=== PATIENT | male | born 1960 | race Caucasian/White ===

== ENCOUNTER → 2019-07-21 08:28 | Outpatient (BNVA) | payer OTHER, SELFPAY | PROVIDERS: Family Provider Family Medicine; Visit Provider Urology | DX: R97.20 Elevated prostate specific antigen [PSA] (principal); N40.1 Benign prostatic hyperplasia with lower urinary tract symptoms | CPT/HCPCS: 81001; 84153 ==

== ENCOUNTER → 2020-04-25 08:33 | Outpatient (BNVA) | payer OTHER, SELFPAY | PROVIDERS: Family Provider Family Medicine; Visit Provider Urology | DX: R97.20 Elevated prostate specific antigen [PSA] (principal); N40.1 Benign prostatic hyperplasia with lower urinary tract symptoms | CPT/HCPCS: 81003; 84153 ==

== ENCOUNTER → 2020-05-10 08:35 | Outpatient (BNVA) | payer OTHER, SELFPAY | PROVIDERS: Family Provider Family Medicine; Visit Provider Family Medicine | DX: Z13.6 Encounter for screening for cardiovascular disorders (principal); R59.0 Localized enlarged lymph nodes; F17.219 Nicotine dependence, cigarettes, with unspecified nicotine-induced disorders | CPT/HCPCS: 80053; 80061; 85025 ==

== ENCOUNTER 2020-05-25 08:14 | Outpatient (CLI) | payer OTHER, SELFPAY ==
--- NOTE | 2020-05-25 08:30 | CT_ITS ---
WS: [id number] CT NECK WITH CONTRAST HISTORY: right sided cervical lymphadenopathy TECHNIQUE: Contiguous 5 mm axial images are performed through the neck with intravenous contrast. Sag ittal and coronal reformats are also submitted. All CT scans at [facility] use at least o ne of these dose optimization techniques: automated exposure control; mA and/or kV adjustment per pat ient size (includes targeted exams where dose is matched to clinical indication); or iterative recons truction. CONTRAST: CONTRAST: Omnipaque 300; 95 mL IV. DLP: 2658.13 mGycm COMPARISON: None available. Nasopharynx and oropharynx are negative. There is increased soft tissue with enhancement involving th e RIGHT lingula tonsil. Area of enhancement and soft tissue thickening measures 11 x 7 mm. Ovoid 7 mm level IIa lymph node is very mildly hypervascular. No enlarged or necrotic lymph nodes. Torus tubarius and parapharyngeal fat are normal. Thyroid gland and salivary glands are normally enhancing with no masses. Mild anterior wedging of T6. No acute fractures. Visualized portions of the skull base demonstrate no abnormalities. Orbits and globes are within norm al limits. No soft tissue masses. Visualized paranasal sinuses and mastoid air cells are normal. Chronic emphysematous changes at the apices. 8mm lymph node high RIGHT paratracheal. CT/CT neck w con* [id number] IMPRESSION: 1. Increased soft tissue with enhancement centered in the RIGHT lingual tonsil . Recommend further evaluation with direct visualization. May be postinflammato ry or neoplastic. 2. RIGHT level IIa normal size lymph nodes with mild increased enhancement.
[2020-05-25] MEDS: iohexol 300 mg/mL 100 mL Btl IV (08:56)
== END 2020-05-25 08:15 | disposition home or self-care (01) ==
LOC: RADWPI 08:19
PROVIDERS: PCP Family Medicine; Visit Provider Family Medicine
DX: R59.0 Localized enlarged lymph nodes (principal)
CPT/HCPCS: 70491; Q9967

== ENCOUNTER → 2021-01-24 08:23 | Outpatient (BNVA) | payer OTHER, SELFPAY | PROVIDERS: PCP Family Medicine; Visit Provider Nurse Practitioner Family | DX: N40.1 Benign prostatic hyperplasia with lower urinary tract symptoms (principal); R97.20 Elevated prostate specific antigen [PSA] | CPT/HCPCS: 81003; 84153 ==

== ENCOUNTER 2021-10-22 09:16 | Outpatient (CLI) | payer OTHER, SELFPAY | END 2021-10-22 09:17 | disposition home or self-care (01) | LOC: LAB 09:18 | PROVIDERS: PCP Family Medicine; Visit Provider Urology | DX: R97.20 Elevated prostate specific antigen [PSA] (principal) | CPT/HCPCS: 36415; 84153 ==

== ENCOUNTER → 2021-10-25 08:44 | Outpatient (BNVA) | payer OTHER, SELFPAY | PROVIDERS: PCP Family Medicine; Visit Provider Urology | DX: R97.20 Elevated prostate specific antigen [PSA] (principal) | CPT/HCPCS: 81003 ==

== ENCOUNTER 2022-07-19 06:59 | Outpatient (CLI) | payer OTHER, SELFPAY ==
[2022-07-19 07:45] LABS: Prostate Specific AG Urology 5.82 ng/mL (0-4)
== END 2022-07-19 07:00 | disposition home or self-care (01) ==
LOC: LAB 07:01
PROVIDERS: PCP Family Medicine; Visit Provider Urology
DX: R97.20 Elevated prostate specific antigen [PSA] (principal)
CPT/HCPCS: 36415; 84153

== ENCOUNTER → 2022-07-23 08:15 | Outpatient (BNVA) | payer OTHER, SELFPAY | PROVIDERS: PCP Family Medicine; Visit Provider Urology | DX: N40.1 Benign prostatic hyperplasia with lower urinary tract symptoms (principal) | CPT/HCPCS: 81003 ==

== ENCOUNTER 2023-08-13 16:56 | Outpatient (CLI) | payer OTHER, SELFPAY ==
--- NOTE | 2023-08-13 17:15 | CT_ITS ---
WS: [id number] CT NECK TECHNIQUE: Contrast-enhanced CT of the neck with coronal and sagittal reformatted images. CLINICAL INFORMATION: Dysphonia COMPARISON: CT neck 05/25/2020 DLP: [address] scans at [facility] use at least one of these dose optimization techniques: automated e xposure control; mA and/or kV adjustment per patient size (includes targeted exams where dose is matc hed to clinical indication); or iterative reconstruction. FINDINGS: Large enhancing soft tissue mass most compatible with neoplasm involving the supraglottic larynx exte nding to the glottis. Enhancing soft tissue mass fills the RIGHT vallecula with involvement of the ep iglottis and filling of the RIGHT piriform sinus. This crosses midline with mass effect on the LEFT v allecula. Involvement of the RIGHT aryepiglottic fold and preepiglottic space. This extends inferiorl y to the anterior commissure with mass effect on the RIGHT and LEFT vocal fold and slightly abuts the RIGHT true vocal cord. Subglottic airway is patent. Enhancing mass fills the periglottic fat. This m easures approximately 3.4 x 4.1 x 3.5 cm. Enhancing pathologic metastatic lymph nodes with some centr al necrosis level 2 and level 3 cervical stations. Recommend further evaluation with PET CT for stagi ng. Paranasal sinuses and mastoid air cells are well aerated. Small retention cyst or polyp LEFT maxillar y sinus. Normal posterior nasopharynx. Normal parapharyngeal fat. Normal thyroid gland. Advanced emph ysematous changes in the lung apices. Mild spondylitic changes cervical spine. Chronic biconcave comp ression C6 vertebral body. This is unchanged since 2020. IMPRESSION: 1. Enhancing supraglottic large soft tissue mass filling the RIGHT vallecula extending to the RIGHT piriform sinus and superior glottis. Recommend further evaluation with direct visualization. Findings compatible with neoplasm. 2. Bilateral level 2 and level 3 metastatic cervical lymph nodes some with central necrosis. Recomme nd staging with PET/CT.
[2023-08-13 17:20] LABS: Blood Urea Nitrogen 19 mg/dL (8-23); Glomerular Filtration Rate 67.8 mL/min (90-130)
[2023-08-13] MEDS: iohexol 350 mg/mL 500 mL Btl (per mL) IV (17:24)
== END 2023-08-13 16:57 | disposition home or self-care (01) ==
LOC: RAD 16:56
PROVIDERS: PCP Family Medicine; Visit Provider Otolaryngology
DX: R49.0 Dysphonia (principal); J38.7 Other diseases of larynx
CPT/HCPCS: 70491; 82565; 84520; Q9967

== ENCOUNTER 2023-09-03 17:51 | Inpatient (IN) | payer OTHER, SELFPAY ==
[2023-09-03] VITALS (23 sets, daily range): BP systolic 112–133; BP diastolic 71–94; PULSE 67–88; RESP 16–20; TEMP 36.3–36.7; O2SAT 87–100; BMI 24.9
--- NOTE | 2023-09-03 11:53 | W.PM.OPSUD ---
Surgery/Procedure H&P Update DATE OF PROCEDURE: September 03, 2023 DATE H&P PERFORMED: 08/28/23 H&P UPDATE INFORMATION: I have reviewed H&P completed within last 30 days, I have examined patient prior to procedure and No changes to prior documentation CHANGES TO PREVIOUS DOCUMENTATION: No changes PREOP DIAGNOSIS: Supraglottic mass PRIMARY INDICATION FOR PROCEDURE: Supraglottic mass for biopsy PLANNED PROCEDURE: Operation Date: 09/03/23 13:00 Proposed Procedures p Direct Laryngoscopy Direct Larynoscopy w/ Vocal Cord Biopsy(Not Applicable) - Yang Felipe MD
[2023-09-03] MEDS: sodium chloride 0.9% 1,000 ML 30 ML IV (11:59)
--- NOTE | 2023-09-03 12:45 | ANES.PREANE2 ---
Pre-Anesthetic Assessment Height/Weight: Height 1.63 m Weight 65.771 kg Temp Pulse Resp BP Pulse Ox O2 Del Method 97.8 F 69 18 133/90 97 Room Air 09/03/23 11:52 09/03/23 11:52 09/03/23 11:52 09/03/23 11:52 09/03/23 11:52 09/03/23 11:52 Preop Diagnosis: Supraglottic mass Operation Date: 09/03/23 13:00 Proposed Procedures p Direct Laryngoscopy Direct Larynoscopy w/ Vocal Cord Biopsy(Not Applicable) - Yang Felipe MD Familial anesthetic complications: None Was Beta Jaime taken within 24 hours: N/A Was Clonidine taken within 24 hours: N/A Last intake: Intake Last Liquid Date 09/02/23 Last Liquid Time 21:00 Last Solid Date 09/02/23 Last Solid Time 19:30 Social Alcohol and Tobacco Exam alert, oriented x 3, clear to auscultation bilaterally and regular rate & rhythm Airway Mallampati: Class IV Comments: Comments: supraglottic mass Anesthetic Plan ASA status: 2 Anesthesia: General Risk of > 500 ml blood loss (7ml/kg in children): No Other Pertinent Information Discussed approach to intubation with Dr. Felipe, with regards to need for awake vs asleep intubation - states it should be safe to proceed with asleep intubation. Recommending 5.5 or 6.0 ETT for size, and recommending glidescope with approach from left side. We perform bag mask ventilation before paralytic. Surgeon will also be at bedside during induction with alternate airway intervention available, including straight blade or possible surgical airway. Patient and informed of expected difficulty d/t anatomy and possiblity of need for surgical airway. Medications/Allergies Home Medications Medication Instructions Recorded Confirmed Last Taken Type aspirin 81 mg tablet,delayed 81 mg PO DAILY 07/21/19 09/02/23 08/12/23 History release Allergies Allergy/AdvReac Type Severity Reaction Status Date / Time Penicillins Allergy ALGY-Hives Verified 08/28/23 08:19 Current Medications Generic Name Dose Route Start Last Admin Trade Name Freq PRN Reason Stop Dose Admin Sodium Chloride 1,000 mls @ 30 mls/hr 09/03/23 11:45 09/03/23 11:59 Sodium Chloride 0.9% IV 09/04/23 11:44 30 mls/hr .Q24H CINDY Administration PFSH Anesthesia Medical History (Updated 08/28/23 @ 08:51 by Yang Felipe MD) Broken wrist History of basal cell carcinoma (BCC) of skin On shoulder - 5-6 years ago Benign non-nodular prostatic hyperplasia with lower urinary tract symptoms Abnormal PSA Surgical History History of cataract surgery with lens implant Hx of appendectomy Family History Father , AT AGE 64 LUNG CANCER No problems noted. Social History Smoking and tobacco/nicotine status: current every day tobacco/nicotine user cigarettes Packs smoked per day: 1.5 Years cigarettes smoked: 50 Quit status (tobacco/nicotine): quit date established Planned quit date: 08/14/23 Second hand smoke exposure: No Alcohol intake: never Substance/Drug Use: current Substance/Drug use frequency: few times a week Adopted: No Caregiver/support person: No Lives independently: No Household members: spouse Marital status: service: No Current occupational status: employed Pets and animals: Yes Pets & animals: cat(s) and dog(s) Current gender identity: Male Special regino needs: No Data Anesthesia Cardiac Studies: No Data to Display
[2023-09-03] MEDS: levofloxacin-dextrose 5 % 750 MG/150 ML PREMIX 100 MG IV (12:58)
[2023-09-03] MEDS: EPINEPHrine 1 mg/mL INJ XX (13:50)
[2023-09-03] MEDS: lidocaine-epi 2% 1.7mL Cartridge (OR Only) 1.69999999999999996 ML (15:00)
[2023-09-03] MEDS: lidocaine-epi 2% 1.7mL Cartridge (OR Only) 5.09999999999999964 ML INJECTION (15:00)
[2023-09-03] MEDS: neomycin-poly-bacitracin oint 28 gm 28 APPLIC (15:20)
--- NOTE | 2023-09-03 15:28 | P.OP_ITS ---
Operative Report Date of procedure: September 03, 2023 Pre-op diagnosis: Right supraglottic mass Post-op diagnosis: Right supraglottic mass. Airway obstruction requiring tracheotomy. Post-op findings: Right supraglottic mass extending to the area just above the true vocal cords. Multiple biopsies taken and raw area approximately 1 cm?. After extubation patient experienced significant stridor due to supraglottic and epiglottic edema. Therefore patient needed to have a controlled but emergent tracheotomy performed. Successfully accomplished placing a cuffed low pressure 8 Shiley tr acheostomy tube in place. Procedure done: Direct laryngoscopy with multiple biopsies of right supraglottic mass. Emergent tracheostomy. Implants: 8 Shiley low-pressure cuff tracheostomy tube in place Specimens removed/disposition: Multiple biopsies of right supraglottic mass Pathology: Right supraglottic mass specimen for permanent section Surgeon: Yang Felipe MD Anesthesia: General and Local Estimated blood loss: 30 mL Complications: No complications encountered after tracheostomy placed. Supraglottic airway obstruction following extubation from direct laryngoscopy and biopsies. This due to extreme edema. Findings: Patient with a right supraglottic mass to be brought to the operating room to undergo biopsy of this mass. Brief History: 63-year-old male patient with a right supraglottic mass extending down to the area just above the right true vocal cord and anterior commissure region. This did not extend through the true cords. It did not obstruct the glottis and its airway. Patient is to undergo direct laryngoscopy and biopsy. The procedure its risks and complications were explained in detail in the office setting as well as in the preoperative area. Informed consent was granted and witnessed. Risks include bleeding infection numbness scarring swelling bruising need for additional treatment as this is expected to be only a diagnostic procedure. Anesthetic risks and airway concerns with the possibility of having to place a trach tube into his airway below the operative site. With these things understood the procedure to continue. Procedure: Description of procedure: The patient was placed on the operating table in the supine position. Patient was given Levaquin for prophylaxis and due to his expected airway concern I was present in the operating room for intubation. Attempts were made with the glide scope to visualize and intubate. When that was not possible I stepped into perform the intubation. Attempts were made with a straight blade laryngoscope and then later with a rigid laryngoscope. I was able to visualize the glottis and intubate under direct visualization. Once that was accomplished and with the endotracheal tube in place with the cuff up, the patient was then repositioned on the table for the endoscopy. The table was rotated 90 degrees. His eyes were taped shut and a head drape was applied in usual fashion. A timeout was accomplished identifying the patient date of planned procedure allergies fire risk and medications given. With all in agreement the procedure continued. The patient was given a total of 24 mg of Decadron IV. A tooth guard was placed over his upper gingiva. The operative laryngoscope was then inserted and the right supraglottic mass was identified. The scope was suspended from a Baez stand. Then using straight biting biopsy forceps multiple biopsies were taken over a 1 cm? region debulking the mass and getting multiple biopsies of the right supraglottic mass. These were all sent to the pathologist for permanent section diagnosis only. Cottonoids soaked in one-to-one thousand epinephrine were applied to the operative site. After approximately 10 minutes past his the cottonoids were removed. Bleeding appeared to be controlled in this area. An LTA was dispensed to the larynx. 200 mg of lidocaine 4% was utilized. The suspension was taken down. The scope was advanced until an area on the base of tongue adjacent to the epiglottis was noted to be bleeding. This was again treated with cottonoid with 1-1000 epinephrine. After 10 minutes this was removed. No bleeding was seen. The scope was then advanced and removed completely from the patient's mouth. Suctioning was accomplished. Irrigation with saline was accomplished. Irrigation with hydrogen peroxide was accomplished. No bleeding was noted. After assuring that there was no sign of bleeding the patient's had was returned to the upright position. Head wrap and tape were removed. The gum protector was removed. The airway was once again suctioned and cleaned. With no sign of bleeding the patient was returned to the anesthesiologist for wake-up and extubation. I remained in the room during this time to assure that his airway would be adequate following the surgery. I noticed a significant amount of edema of the epiglottis at the end of the procedure due to the challenging intubation. In spite of the Decadron I was concerned that that could potentially cause postoperative airway obstruction and stridor. After extubation that is exactly what was noted. Patient was having to work significantly to get adequate air flow. Therefore it was opted to proceed with a tracheostomy urgently. The patient was placed back on the bed as he had been moved to the [facility]. Anesthesia maintained his airway with mask and the patient was prepped and draped in the usual fashion for the tracheostomy placement. The surgical site was infiltrated with a total of 5.1 mL of 2% Xylocaine with 1 100,000 epinephrine. Marking pen was used to outline the appropriate anatomy in the neck and to help maintain the midline position. Then the incision was created with the cut mode of the Bovie down to the subcutaneous layer. Then careful dissection was carried out down through multiple layers of soft tissue and the isthmus of the thyroid gland which was partially resected for access to the trachea. Tracheal rings were then identified and vessels in the area were clamped and cauterized. Wheat Avon retractors were used to hold the soft tissue off the trachea. The trach hook was placed between tracheal rings 1 and 2 and an incision was created between rings 2 and 3 down into the trachea. A trach machine spreader was placed. The 8 low-pressure cuffed Shiley tube was then placed under direct visualization. The obturator was removed and the cuff was inflated. The ventilator adapter was connected directly through the trach tube. Suturing of the trach tube plate was accomplished and 4 points 2 on each side. The vertical incision that had been created previously was partially closed inferior to the tube with 3-0 Prolene sutures. Then the drapes were removed. A [place] was then attached to the trach tube and tightened so that 1 finger breath of space was maintained. The patient was then cleansed of the Betadine used for the prep and Neosporin ointment was applied over the lower part of the incision and at the suture sites. The patient was then returned to the anesthesiologist for wake up and transport to recovery. The patient tolerated both procedures well. Airway was significantly improved after the tracheostomy tube was in place. He arrived in recovery in stable condition. Estimated blood loss for the procedure was 30 mL.
[2023-09-03] MEDS: fentaNYL 50 mcg/mL INJ 2mL IVP (16:55)
--- NOTE | 2023-09-03 18:00 | ANE.PACU2 ---
Inpatient post-anesthesia follow up: Airway intact: No (trach) Vital signs: Temperature 99.5 F Pulse Rate 80 Respiratory Rate 26 Blood Pressure 121/77 Pulse Oximetry 100 Oxygen Delivery Me thod [ HAG Current Rate & Del tam] Oxygen Delivery Me thod Trach Collar Oxygen Flow Rate [ Current Rate 10 & Delivery] Oxygen Flow Rate 14 Fraction of Inspir ed Oxygen 50 Hydration adequate: Yes Nausea and vomiting: No Pain level: 1 Mental status: Baseline
--- NOTE | 2023-09-03 18:53 | P.HP_ITS ---
Providers/Chief Complaint Primary Care Provider: Laine Berrios DO Chief Complaint: J38.7 History of Present Illness 63-year-old gentleman with right supraglottic mass with intermittent abscess, pain, odynophagia, biopsy, after extubation with significant stridor, supraglottic and epiglottic edema underwent controlled but emergent tracheostomy. Subsequently admitted to ICU, hospitalist asked for admission due to better familiarity with EMR. Patient communicates by writing. He is doing okay after surgery. He otherwise has been at baseline state of health. As per discussion with his in the waiting room he has had quite bit of secretions, some hemoptysis, dysphagia, or odynophagia to hospitalization. Has stayed on clear liquid diet. Review of Systems Const: Denies: fever(s), chills, body aches or malaise ENMT: Reports: throat pain Card: Denies: chest pain, edema, pre-syncope or dyspnea on exertion Resp: Reports: productive cough (Oropharyngeal secretions) and hemoptysis; Denies: dyspnea or change in phlegm color GI: Denies: abdominal pain, nausea, vomiting, diarrhea, constipation, hematochezia or melena : Denies: flank pain, difficulty urinating, urinary frequency or hematuria Musc: Denies: back pain, joint swelling or joint redness Skin/Breast: Denies: rash or new lesions Neuro: Denies: headache(s), numbness in extremities, weakness in extremities, dizziness, confusion or seizure-like activity Medications/Allergies Home Medications Medication Instructions Recorded Confirmed Last Taken Type aspirin 81 mg tablet,delayed 81 mg PO DAILY 07/21/19 09/02/23 08/12/23 History release Allergies Allergy/AdvReac Type Severity Reaction Status Date / Time Penicillins Allergy ALGY-Hives Verified 08/28/23 08:19 PFSH Acute PFSH: Medical History Broken wrist History of basal cell carcinoma (BCC) of skin On shoulder - 5-6 years ago Benign non-nodular prostatic hyperplasia with lower urinary tract symptoms Abnormal PSA Surgical History History of cataract surgery with lens implant Hx of appendectomy Family History Father , AT AGE 64 LUNG CANCER No problems noted. Social History Smoking and tobacco/nicotine status: current every day tobacco/nicotine user cigarettes Packs smoked per day: 1.5 Years cigarettes smoked: 50 Quit status (tobacco/nicotine): quit date established Planned quit date: 08/14/23 Second hand smoke exposure: No Alcohol intake: never Substance/Drug Use: current Substance/Drug use frequency: few times a week Adopted: No Caregiver/support person: No Lives independently: No Household members: spouse Marital status: service: No Current occupational status: employed Pets and animals: Yes Pets & animals: cat(s) and dog(s) Current gender identity: Male Special regino needs: No Vitals/I&O/Wt Last Vital Signs Temp 98.0 F 09/03/23 17:51 Pulse 76 09/03/23 18:32 Resp 18 09/03/23 17:51 BP 127/77 09/03/23 17:51 Pulse Ox 100 09/03/23 18:32 O2 Del Method HAG 09/03/23 18:32 O2 Flow Rate 10 09/03/23 18:32 FiO2 50 09/03/23 16:04 09/03/23 09/03/23 09/03/23 06:59 14:59 22:59 Intake Total 150 / 150 300 / 450 Output Total 5 / 5 Balance 150 / 150 295 / 445 Weight last 48 hrs Weight 65.771 kg Physical Exam Const: COMMON NORMALS: patient oriented x3 and alert GENERAL APPEARANCE: cooperative ORIENTATION/CONSCIOUSNESS: Yes awake HENMT: COMMON NORMALS: oropharynx normal OTHER: Tracheostomy. Small out of secretions. Minimal blood inferiorly. Neck/C-Spine: COMMON NORMALS: no JVD Resp: COMMON NORMALS: normal respiratory effort and clear to auscultation bilaterally AUSCULTATION: clear to auscultation bilaterally Cardio: COMMON NORMALS: no JVD, regular rhythm, S1 normal heart sound present, S2 normal heart sound present and No murmurs present (Cardio) RHYTHM: regular rhythm HEART SOUNDS: S1 normal heart sound present and S2 normal heart sound present GI: COMMON NORMALS: Normal to inspection, nondistended, normoactive bowel sounds present, Soft to palpation and non-tender PALPATION: Yes Soft to palpation Extremity: COMMON NORMALS: no joint enlargement and no pedal edema Neuro: COMMON NORMALS: patient oriented x3 and moves all extremities SENS ORIUM/ORIENTATION: Yes alert Skin: COMMON NORMALS: no rashes or lesions noted GENERAL SKIN EXAM: no rashes or lesions noted A&P Assessment and plan (1) Airway compromise: Airway compromise with airway edema, stridor following intubation after supraglottic mass biopsy, at risk of respiratory arrest, underwent tracheostomy. Reviewed vitals, neck CT, ENT note. Discussed with ENT, respiratory therapist. Post tracheostomy care per ENT. Continues on HAG, wean down oxygen as tolerating. Monitor for bleeding, risk of bleeding first 48 hours. Discussed with patient and his regarding anticipated increase secretions with new tra cheostomy. Consideration of trach exchange at 5-7 days. Will request case management consultation to allow for equipment to be set up for patient and his to continue tracheostomy care at home once ready for discharge. They will also need education. IV morphine for pain control for now. Gentle IV hydration. N.p.o. for now until cleared for oral intake by ENT. Recently with hemoptysis suspected due to the mass, increased secretions from oropharynx/upper airway. (2) Supraglottic mass: Status post biopsy. Follow-up. Appearance/concern of malignancy. (3) Smoking addiction: Encourage smoking cessation. He is agreeable to nicotine patches, is wearing around right now. Continue 21 mg patches. Attestations Medical Necessity Statement*: Admission of over 2 midnights anticipated after airway compromise and edema, tracheostomy in gentleman with some supraglottic mass, suspected malignant, status post biopsy. Coding Level of Care Code Critical Care >/= 30 minutes Critical care time (in minutes): 35 The high probability of a clinically significant, sudden or life threatening deterioration, as referenced in this documentation, required my full and direct attention, intervention and personal management. The critical care time shown is in addition to time spent performing any reported separately billable procedures and includes the following: [x] Data and vital sign review and interpretation [x ] Patient assessment, examination and intervention [x] Medication orders and management [x] Patient/Family updates as able [x] Care Coordination and Documentation. Diagnoses Airway compromise J98.8 Supraglottic mass J38.7 Smoking addiction F17.200
[2023-09-03] MEDS: nicotine 21 mg Patch 1 PATCH TRANSDERMA (20:04)
[2023-09-03] MEDS: morphine 4 mg/mL SDV 1 mL 2 MG IVP (20:07)
[2023-09-03] MEDS: lactated ringers 1,000 ML 30 ML IV (20:14)
[2023-09-04] VITALS (26 sets, daily range): BP systolic 116–142; BP diastolic 73–85; PULSE 61–81; RESP 14–34; TEMP 36.8–38.3; O2SAT 93–100; BMI 21.8
[2023-09-04] MEDS: morphine 4 mg/mL SDV 1 mL 2 MG IVP ×8 (00:09→20:36)
[2023-09-04 04:13] LABS: Basophils % 0.1 %; Lymphocytes # 1.4 10^3/uL (0.8-4.8); Mean Corpuscular HGB Conc 32.9 g/dL (30-55); Mean Corpuscular Hemoglobin 29.2 pg (27-33); Mean Corpuscular Volume 88.7 fl (82-101); Mean Platelet Volume 10.9 fL (7.4-10.4); Monocytes # 0.5 10^3/uL (0.2-0.9); Neutrophils # 10.89 10^3/uL (1.8-7.7); Neutrophils % 84.5 %; Nucleated Red Blood Cells % 0 %; Platelet Count 193 10^3/cmm (157-399); Red Blood Count 4.62 10^6/uL (3.85-5.65); Red Cell Distribution Width 12.9 % (12.1-15.1); White Blood Count 12.89 10^3/uL (3.29-11.43)
[2023-09-04 04:42] LABS: Anion Gap 16.2 (5-19); Blood Urea Nitrogen 18 mg/dL (8-23); Calcium 8.6 mg/dL (8.5-10.5); Carbon Dioxide 24 mmol/L (22-29); Chloride 103 mmol/L (98-107); Creatinine Clr Calc Pharmacy 70.7093; Glomerular Filtration Rate 85.2 mL/min (90-130); Glucose 111 mg/dL (65-115); Osmolality Calculated 291 mOsm/kg (285-295); Potassium 4.2 mmol/L (3.5-5.1); Sodium 139 mmol/L (136-145)
--- NOTE | 2023-09-04 12:06 | PM.PN ---
Subjective Subjective: 63-year-old male patient with right supraglottic mass consistent with malignancy. Patient had biopsy done with direct laryngoscopy on 09/03/2023. Subsequent to that procedure being accomplished upon waking and extubation he had significant stridor. Therefore in an emergent tracheostomy was performed. Patient has 8 Shiley cuffed trach tube in place. In ICU for trach care and management. Vitals/I&O/Wt Last Vital Signs Temp 99.5 F 09/04/23 07:34 Pulse 80 09/04/23 08:00 Resp 26 H 09/04/23 08:36 BP 121/77 09/04/23 06:28 Pulse Ox 100 09/04/23 08:36 O2 Del Method HAG 09/04/23 08:00 O2 Flow Rate 10 09/04/23 08:00 FiO2 50 09/03/23 16:04 09/03/23 09/04/23 09/04/23 22:59 06:59 14:59 Intake Total 300 / 450 Output Total 5 / 5 400 / 405 Balance 295 / 445 -400 / 45 Weight last 48 hrs Weight 131 lb 3.2 oz Weight 132 lb 3.2 oz Weight 145 lb Weight 145 lb Physical Exam Narrative: The trach tube is in place. Cuff is inflated. Incision with sutures in place. Faceplate of trach tube sutured in 4 point suture and [place] neck strap in place. Appropriate tension on the [place] strap. Patient breathing easily through the trach. Has attempted to swallow orally but had difficulty accomplishing that. Hard to tell whether that was related to the swelling or possibly due to the cuff being inflated. Data 09/04/23 03:40 09/04/23 03:40 A&P Assessment and plan (1) Supraglottic mass: Assessment: Supraglottic mass right side now status post multiple biopsies on 08/14/2023. Chronic hoarseness and neck pain and pain on swallowing from the supraglottic mass. Now with pain subsequent to tracheostomy placement due to postoperative airway compromise and stridor. This due to extreme edema of the laryngeal and hypopharyngeal tissues. Currently breathing easily through the 8 Shiley cuffed trach tube. Incision clean and without any signs of infection. No active bleeding. Difficulty swallowing probably related to the edema of the supraglottic area as well as the cuff being inflated. (2) Hoarseness, chronic: (3) Throat pain in adult: (4) Odynophagia: (5) Airway compromise: Plan Plan: My recommendation is for the cuff to be reduced in pressure when he wants to eat or drink. If he does not have excessive secretions then the cuff can remain deflated or at least lessened to allow him to be able to swallow and drink and take in food and liquids. It is possible that the cuff may need to be reinflated after he is finished eating or drinking. If he can tolerate the cuff down then he may be able to use a valve over the end of the trach tube and be able to breathe as well as talk. Trial with the cuff deflated or reduced and pressure can be done today. Attestations Medical Necessity Statement*: ICU care for fresh tracheostomy placement. Airway compromise due to supraglottic mass and postoperative edema. Coding Level of Care Code 50621 Diagnoses Supraglottic mass J38.7 Hoarseness, chronic R49.0 Throat pain in adult R07.0 Odynophagia R13.10 Airway compromise J98.8
[2023-09-04] MEDS: LORazepam 2 mg/mL INJ 10 mL MDV 0.5 MG IVP ×2 (13:52→20:37)
--- NOTE | 2023-09-04 19:39 | PC.NURSE ---
Shift summary: Pt rested in bed throughout the shift. Lungs auscultated clear. His tolerating the new trach fairly well. It is very tender right below per pt. He did have Morphine mg every 4hrs ordered, it was not lasting the 4hours. Per Dr chauhan frequency increased to every 2 hours. That seems to hold his pain level down better. He did have a panicked episode around noon. Rt was at bedside doing trach care, pt had copious red mucous drainage, RT provided suctioning to clear his airway, he started coughing. Pain increased, RT attempted to suctioning him again and pt swatted at RT. Dr Chauhan notified, okay'ed given Morhpine sooner than the 2 hours and started a PRN Ativan order. Admin both and pt was actually able to rest with eyes closed for a couple hours after. He stated he felt much better after that. Sinus rhythm noted on monitor. He is using a HAG at 10lpm/28%. He uses the urinal 100-175ml at a time. total urine output this shift was 575ml. No Bm noted tis shift.
--- NOTE | 2023-09-04 19:41 | PM.PN ---
Subjective Subjective: Having pain around tracheostomy. Morphine does not last long enough with the 4-hour interval. It appears pain is also possibly contributing to him having episodes of getting quite anxious as well. Could not tolerate suctioning well, became very anxious and reported ended up swinging his arm at the respiratory therapist. Vitals/I&O/Wt Last Vital Signs Temp 98.3 F 09/04/23 13:00 Pulse 61 09/04/23 16:00 Resp 25 H 09/04/23 18:38 BP 126/80 09/04/23 16:00 Pulse Ox 98 09/04/23 18:38 O2 Del Method HAG 09/04/23 16:00 O2 Flow Rate 10 09/04/23 16:00 FiO2 28 09/04/23 16:00 09/04/23 09/04/23 09/04/23 06:59 14:59 22:59 Output Total 400 / 405 225 / 225 175 / 400 Balance -400 / 45 -225 / -225 -175 / -400 Weight last 48 hrs Weight 59.511 kg Weight 59.965 kg Weight 65.771 kg Weight 65.771 kg Physical Exam Narrative: Accompanied by his . Const: COMMON NORMALS: patient oriented x3 and alert GENERAL APPEARANCE: cooperative ORIENTATION/CONSCIOUSNESS: Yes awake HENMT: COMMON NORMALS: oropharynx normal OTHER: I do not appreciate pharyngeal or posterior pharyngeal swelling to the extent that could be visualized. Tracheostomy. No secretions or bleeding around the tracheostomy. Neck/C-Spine: COMMON NORMALS: no JVD Resp: COMMON NORMALS: normal respiratory effort and clear to auscultation bilaterally AUSCULTATION: clear to auscultation bilaterally Cardio: COMMON NORMALS: no JVD, regular rhythm, S1 normal heart sound present, S2 normal heart sound present and No murmurs present (Cardio) RHYTHM: regular rhythm HEART SOUNDS: S1 normal heart sound present and S2 normal heart sound present GI: COMMON NORMALS: Normal to inspection, nondistended, normoactive bowel sounds present, Soft to palpation and non-tender PALPATION: Yes Soft to palpation Extremity: COMMON NORMALS: no joint enlargement and no pedal edema Neuro: COMMON NORMALS: patient oriented x3 and moves all extremities SENSORIUM/ORIENTATION: Yes alert Skin: COMMON NORMALS: no rashes or lesions noted GENERAL SKIN EXAM: no rashes or lesions noted Data 09/04/23 03:40 09/04/23 03:40 A&P Assessment and plan (1) Status post tracheostomy: On 09/02. Reviewed vitals, CBC, BMP, discussed with nursing staff, reviewed ENT note, discussed with case packer and sealer. He is having pain around the tracheostomy, IV morphine was not lasting long enough, increased dose frequency to every 2 hours. Additionally episodes of anxiety possibly. Worsened by pain, added Ativan as needed by IV as currently also not tolerating oral intake/medications. ENT seeing if cough can be deflated to perhaps allow some oral intake if not having excessive secretions. If could possibly be fitted with a valve as well. Will ask speech therapy for consultation. Continue monitoring for any bleeding in ICU, at risk in the first 48 hours. Consideration of trach exchange at 5-7 days. Appreciate case management consultation regarding equipment that will be needed for home use. (2) Airway compromise: Airway compromise with airway edema, stridor following intubation after supraglottic mass biopsy, at risk of respiratory arrest, underwent tracheostomy on 09/02. Will request case management consultation to allow for equipment to be set up for patient and his to continue tracheostomy care at home once ready for discharge. They will also need education. IV morphine for pain control for now. Gentle IV hydration. N.p.o. for now until cleared for oral intake by ENT. Recently with hemoptysis suspected due to the mass, increased secretions from oropharynx/upper airway. 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 Status post biopsy. Follow-up. Appearance/concern of malignancy. (4) Smoking addiction: Encourage smoking cessation. He is agreeable to nicotine patches, is wearing around right now. Continue 21 mg patches. Patient and family would like to use his own patches which they brought in. Attestations Medical Necessity Statement*: Continue admission for assessment management of new tracheostomy status post airway compromise with laryngeal swelling. Diagnoses Status post tracheostomy Z93.0 Airway compromise J98.8 Supraglottic mass J38.7 Smoking addiction F17.200
[2023-09-05] VITALS (25 sets, daily range): BP systolic 116–143; BP diastolic 73–92; PULSE 66–93; RESP 13–33; TEMP 36.9–37.9; O2SAT 94–100
[2023-09-05] MEDS: morphine 4 mg/mL SDV 1 mL 2 MG IVP ×7 (03:24→22:44)
[2023-09-05] MEDS: LORazepam 2 mg/mL INJ 10 mL MDV 0.5 MG IVP ×3 (03:26→20:39)
[2023-09-05 05:10] LABS: Basophils % 0.3 %; Eosinophils % 0.1 %; Hematocrit 43.3 % (37-53); Lymphocytes # 1.7 10^3/uL (0.8-4.8); Lymphocytes % 13.3 %; Mean Corpuscular HGB Conc 32.6 g/dL (30-55); Mean Corpuscular Hemoglobin 29.3 pg (27-33); Mean Corpuscular Volume 89.8 fl (82-101); Monocytes # 0.7 10^3/uL (0.2-0.9); Monocytes % 5.3 %; Neutrophils # 10.57 10^3/uL (1.8-7.7); Neutrophils % 80.6 %; Nucleated Red Blood Cells % 0 %; Platelet Count 173 10^3/cmm (157-399); Red Blood Count 4.82 10^6/uL (3.85-5.65)
[2023-09-05 05:32] LABS: Anion Gap 14.9 (5-19); Blood Urea Nitrogen 20 mg/dL (8-23); Calcium 8.5 mg/dL (8.5-10.5); Carbon Dioxide 24 mmol/L (22-29); Chloride 98 mmol/L (98-107); Glomerular Filtration Rate 97.6 mL/min (90-130); Glucose 86 mg/dL (65-115); Osmolality Calculated 278 mOsm/kg (285-295); Potassium 3.9 mmol/L (3.5-5.1); Sodium 133 mmol/L (136-145)
[2023-09-05] MEDS: lactated ringers 1,000 ML 30 ML IV (05:48)
--- NOTE | 2023-09-05 08:39 | PC.NURSE ---
Pt resting with eyes closed. Looks comfortable. Will get temperature when he wakens.
--- NOTE | 2023-09-05 08:50 | PC.NURSE ---
Jarod, Case management, notified [facility] called yesterday evening they do not have a HAG, they do have CAG. They are not in network with pt's insurance, they will work up a list of pricing for him. Becky stated she would contact [facility] also. Pt also needs a speaking valve ordered.
--- NOTE | 2023-09-05 11:38 | PM.PN ---
Subjective Subjective: 63-year-old male patient with right supraglottic lesion biopsied with direct laryngoscopy a couple of days ago. Had stridor after extubation and required urgent tracheostomy placement. He is doing fine with that now. Has not yet been challenged with the cuff down to see about swallowing and breathing around the tube or plugging and talking. Vitals/I&O/Wt Last Vital Signs Temp 99.2 F 09/05/23 04:00 Pulse 70 09/05/23 08:00 Resp 24 H 09/05/23 09:12 BP 143/84 09/05/23 08:00 Pulse Ox 94 09/05/23 09:12 O2 Del Method HAG 09/05/23 08:00 O2 Flow Rate 10 09/05/23 08:00 FiO2 28 09/05/23 08:00 09/04/23 09/05/23 09/05/23 22:59 06:59 14:59 Intake Total 0 / 0 1000 / 1000 Output Total 500 / 725 250 / 975 Balance -500 / -725 750 / 25 Weight last 48 hrs Weight 125 lb 14.4 oz Weight 131 lb 3.2 oz Weight 132 lb 3.2 oz Weight 145 lb Weight 145 lb Physical Exam Narrative: Patient has an 8 [address] tracheostomy tube in place with low pressure cuff. Breathing easily through this. Incision is clean and dry with minimal serous secretion. Patient using suction as necessary. Data 09/05/23 04:20 09/05/23 04:20 A&P Assessment and plan (1) Status post tracheostomy: Assessment: Patient progressing well with new tracheostomy in place postop day 2. Has not yet been challenged with cuff down and eating or drinking. Has not attempted to talk around the tube with the cuff down. (2) Supraglottic mass: Plan Plan: Advised the nurse to proceed with attempting to eat and drink starting with liquids. Cuff pressure may need to be lowered in order for the patient to be able to swallow past that point. It is certainly allowable to deflate the cuff if necessary for him to eat and drink. As swallowing continues to decrease in the supraglottic area from the manipulation of the direct laryngoscopy and biopsies, it should be easier and easier for him to swallow. Obtain an 8 Shiley uncuffed tube for private branch exchange repairer of this tube to a new tube after day 7. Speaking valve for placement on that new trach tube would also be appropriate to obtain. Nurse will arrange that either through home or other facility that can provide that. We do not have those readily available in house. Local care to continue. Attestations Medical Necessity Statement*: Patient needs to be maintained in ICU for observation with his fresh tracheostomy tube placement. Coding Level of Care Code 27310 Diagnoses Status post tracheostomy Z93.0 Supraglottic mass J38.7
--- NOTE | 2023-09-05 19:42 | PM.PN ---
Subjective Subjective: He reports he is doing well today. He is having fewer secretions. He is still needing pain medication for the tracheostomy site but it is not as bad as yesterday. They have discussed with ENT regarding him trying some clear liquid oral intake. Vitals/I&O/Wt Last Vital Signs Temp 99 F 09/05/23 17:00 Pulse 73 09/05/23 17:00 Resp 25 H 09/05/23 18:48 BP 125/82 09/05/23 17:00 Pulse Ox 98 09/05/23 18:48 O2 Del Method HAG 09/05/23 17:00 O2 Flow Rate 10 09/05/23 17:00 FiO2 28 09/05/23 17:00 09/05/23 09/05/23 09/05/23 06:59 14:59 22:59 Intake Total 1000 / 1000 100 / 100 350 / 450 Output Total 250 / 975 150 / 150 250 / 400 Balance 750 / 25 -50 / -50 100 / 50 Weight last 48 hrs Weight 57.107 kg Weight 59.511 kg Weight 59.965 kg Weight 65.771 kg Physical Exam Const: COMMON NORMALS: patient oriented x3 and alert GENERAL APPEARANCE: cooperative ORIENTATION/CONSCIOUSNESS: Yes awake HENMT: COMMON NORMALS: oropharynx normal OTHER: I do not appreciate pharyngeal or posterior pharyngeal swelling to the extent that could be visualized. Tracheostomy. No secretions or bleeding around the tracheostomy. Neck/C-Spine: COMMON NORMALS: no JVD Resp: COMMON NORMALS: normal respiratory effort and clear to auscultation bilaterally AUSCULTATION: clear to auscultation bilaterally Cardio: COMMON NORMALS: no JVD, regular rhythm, S1 normal heart sound present, S2 normal heart sound present and No murmurs present (Cardio) RHYTHM: regular rhythm HEART SOUNDS: S1 normal heart sound present and S2 normal heart sound present GI: COMMON NORMALS: Normal to inspection, nondistended, normoactive bowel sounds present, Soft to palpation and non-tender PALPATION: Yes Soft to palpation Extremity: COMMON NORMALS: no joint enlargement and no pedal edema Neuro: COMMON NORMALS: patient oriented x3 and moves all extremities SENSORIUM/ORIENTATION: Yes alert Skin: COMMON NORMALS: no rashes or lesions noted GENERAL SKIN EXAM: no rashes or lesions noted Data 09/05/23 04:20 09/05/23 04:20 A&P Assessment and plan (1) Status post tracheostomy: Reviewed vitals, CBC, BMP. Reviewed ENT note. Reviewed speech therapy note. Requesting MBS per speech therapy recommendations. ENT also has been working with patient, nursing staff to further assess breathing, swallowing around tracheostomy with deflation of the cough. Discussed with bilingual patient support caseworker, they are working with the family to arrange further equipment needed at home including speaking valve, humidification. He is still needing IV pain medication but pain is improving. Continue weaning down oxygen. Continue modification. Pulmonary toilet. No medical floor bed available, remaining in ICU as overflow. Status post tracheostomy on 09/02. Reviewed vitals, CBC, BMP, discussed with nursing staff, reviewed ENT note, discussed with bilingual patient support caseworker. He is having pain around the tracheostomy, IV morphine was not lasting long enough, increased dose frequency to every 2 hours. Additionally episodes of anxiety possibly. Worsened by pain, added Ativan as needed by IV as currently also not tolerating oral intake/medications. ENT seeing if cough can be deflated to perhaps allow some oral intake if not having excessive secretions. If could possibly be fitted with a valve as well. Will ask speech therapy for consultation. Continue monitoring for any bleeding in ICU, at risk in the first 48 hours. Consideration of trach exchange at 5-7 days. Appreciate case management consultation regarding equipment that will be needed for home use. (2) Airway compromise: Airway compromise with airway edema, stridor following intubation after supraglottic mass biopsy, at risk of respiratory arrest, underwent tracheostomy on 09/02. Will request case management consultation to allow for equipment to be set up for patient and his to continue tracheostomy care at home once ready for discharge. They will also need education. IV morphine for pain control for now. Gentle IV hydration. N.p.o. for now until cleared for oral intake by ENT. Recently with hemoptysis suspected due to the mass, increased secretions from oropharynx/upper airway. 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 Status post biopsy. Follow-up. Appearance/concern of malignancy. (4) Smoking addiction: Encourage smoking cessation. He is agreeable to nicotine patches, is wearing around right now. Continue 21 mg patches. Patient and family would like to use his own patches which they brought in. Attestations Medical Necessity Statement*: Continue admission for assessment management of new tracheostomy status post airway compromise with laryngeal swelling. and High MDM includes amount and/or complexity of data reviewed/ordered [ previous or external records, resulted lab(s)/test(s), ordered lab(s)/test(s) and other healthcare professional discussion] and described risk of complication, morbidity or mortality of management as documented Diagnoses Status post tracheostomy Z93.0 Airway compromise J98.8 Supraglottic mass J38.7 Smoking addiction F17.200
--- NOTE | 2023-09-05 20:12 | PC.NURSE ---
shift summary: Pt rested in bed this shift. He was resting soundly with eyes closed at the beginning. Assistance to get up to chiar offered, pt declined today. he does not have difficulty moving around or sitting up in the bed. He has had blood tinges to tannish sputum/secretions out of his trach today. Pt using yankuer to clean area, he is tolerating this well. He was offered clear liquids today,. He was too nervous this am. After speech therapy evaluated and assisted his, he is much more confident about about consuming liquids. He was a very willing participate in her instructions to turn his head to the right and tilt his chin done for better ease of swallowing. Sinus rhythm noted on monitor. Pain control much improved today. 400ml of urine output noted.
[2023-09-06] VITALS (30 sets, daily range): BP systolic 118–149; BP diastolic 75–98; PULSE 66–86; RESP 13–34; TEMP 36.6–37.3; O2SAT 86–100
[2023-09-06] MEDS: morphine 4 mg/mL SDV 1 mL 2 MG IVP ×7 (01:02→21:58)
[2023-09-06 06:37] LABS: Basophils # 0.1 10^3/uL (0.0-0.1); Basophils % 0.4 %; Eosinophils % 0.2 %; Hematocrit 44.4 % (37-53); Lymphocytes # 2.7 10^3/uL (0.8-4.8); Lymphocytes % 20.5 %; Mean Corpuscular HGB Conc 31.8 g/dL (30-55); Mean Corpuscular Hemoglobin 29.5 pg (27-33); Mean Corpuscular Volume 92.9 fl (82-101); Mean Platelet Volume 11.1 fL (7.4-10.4); Monocytes # 0.7 10^3/uL (0.2-0.9); Monocytes % 5.3 %; Neutrophils % 73.4 %; Nucleated Red Blood Cells % 0 %; Platelet Count 208 10^3/cmm (157-399); Red Blood Count 4.78 10^6/uL (3.85-5.65); Red Cell Distribution Width 12.8 % (12.1-15.1); White Blood Count 13.22 10^3/uL (3.29-11.43)
[2023-09-06 06:56] LABS: Blood Urea Nitrogen 22 mg/dL (8-23); Calcium 9.2 mg/dL (8.5-10.5); Carbon Dioxide 24 mmol/L (22-29); Chloride 99 mmol/L (98-107); Creatinine Clr Calc Pharmacy 79.2581; Glomerular Filtration Rate 97.6 mL/min (90-130); Glucose 80 mg/dL (65-115); Osmolality Calculated 288 mOsm/kg (285-295); Sodium 138 mmol/L (136-145)
[2023-09-06 07:24] LABS: Anion Gap 19.1 (5-19); Potassium 4.1 mmol/L (3.5-5.1)
--- NOTE | 2023-09-06 11:15 | P.PN_ITS ---
Subjective 2 Subjective: Since yesterday the patientHas attempted to swallow liquids. Apparently there may have been some degree of aspiration. Different positions of his neck did allow him to be more successful. He is not able to talk around the trach tube with the cuff deflated. Vitals/I&O/Wt Last Vital Signs Temp 99.1 F 09/06/23 09:00 Pulse 75 09/06/23 10:00 Resp 20 H 09/06/23 10:00 BP 149/88 09/06/23 10:00 Pulse Ox 98 09/06/23 10:00 O2 Del Method HAG 09/06/23 09:00 O2 Flow Rate 10 09/05/23 20:00 FiO2 24 09/06/23 09:00 09/05/23 09/06/23 09/06/23 22:59 06:59 14:59 Intake Total 380 / 480 974 / 974 Output Total 500 / 650 250 / 900 250 / 250 Balance -120 / -170 -250 / -420 724 / 724 Weight last 48 hrs Weight 123 lb 6.4 oz Weight 125 lb 14.4 oz Physical Exam 2 Narrative: Trach site stable. Lumen patent. Cuff deflated currently. No sign of bleeding or infection. Data 09/06/23 05:28 09/06/23 05:28 A&P Assessment and plan (1) Status post tracheostomy: Patient is status post tracheostomy for airway restriction and stridor following extubation after supraglottic mass biopsy 3 days ago. Patient appears to be stable but not able to handle full diet. Having some degree of aspiration issues. Awaiting barium swallow study next Friday. (2) Supraglottic mass: Plan Plan: May try to use full liquids if he handles clear liquids earlier today. Apparently he is going to be transferred to the med surgical floor on the second floor. I will see him again tomorrow. Whether we need to continue with a cuffed tube long-term or whether we need to consider him for PEG tube for feeding will depend on how he progresses with his oral intake. Trach stable and no treatment warranted in that regard at this time. Will wait at least 1 week before trach is changed over. Whether it will need to be a cuffed tube and size 8 or whether it needs to be reduced down to a size 6 will remain to be seen. Attestations 2 Medical Necessity Statement*: Tracheostomy care postop day #3. Swallowing difficulties. Aspiration concerns. Right supraglottic mass pending pathology results. Coding Level of Care Code 02590 Diagnoses Status post tracheostomy Z93.0 Supraglottic mass J38.7
[2023-09-06] MEDS: lactated ringers 1,000 ML 50 ML IV (12:48)
[2023-09-06] MEDS: LORazepam 2 mg/mL INJ 10 mL MDV 0.5 MG IVP ×2 (13:25→20:17)
--- NOTE | 2023-09-06 17:25 | PC.NURSE ---
Shift SUmmary: Uneventful shift. Patient rested in bed most of the day, but did walk the unit for about 10 minutes with no issues. Has performed all of his regular trach care, with nurse only having to empty the water trap.. Cuff was reinflated since even with it deflated he was unable to speak and speech therapy had some concerns for aspiration. Change to a smaller trach and a barium swallow planned for friday.
--- NOTE | 2023-09-06 20:02 | P.PN_ITS ---
Subjective 2 Subjective: He is doing similarly with regards to pain. Did worse with speech therapy today with attempts to swallow, coughing with every attempt. Vitals/I&O/Wt Last Vital Signs Temp 98.9 F 09/06/23 13:00 Pulse 74 09/06/23 17:43 Resp 22 H 09/06/23 19:01 BP 127/82 09/06/23 17:00 Pulse Ox 91 09/06/23 19:01 O2 Del Method HAG 09/06/23 17:43 O2 Flow Rate 10 09/06/23 08:00 FiO2 21 09/06/23 17:43 09/06/23 09/06/23 09/06/23 06:59 14:59 22:59 Intake Total 1109 / 1109 Output Total 250 / 900 375 / 375 200 / 575 Balance -250 / -420 734 / 734 -200 / 534 Weight last 48 hrs Weight 55.973 kg Weight 57.107 kg Physical Exam 2 Narrative: Accompanied by his . Const: COMMON NORMALS: patient oriented x3 and alert GENERAL APPEARANCE: c ooperative ORIENTATION/CONSCIOUSNESS: Yes awake HENMT: COMMON NORMALS: oropharynx normal OTHER: Tracheostomy. No secretions or bleeding around the tracheostomy. Neck/C-Spine: COMMON NORMALS: no JVD Resp: COMMON NORMALS: normal respiratory effort and clear to auscultation bilaterally AUSCULTATION: clear to auscultation bilaterally Cardio: COMMON NORMALS: no JVD, regular rhythm, S1 normal heart sound present, S2 normal heart sound present and No murmurs present (Cardio) RHYTHM: regular rhythm HEART SOUNDS: S1 normal heart sound present and S2 normal heart sound present GI: COMMON NORMALS: Normal to inspection, nondistended, normoactive bowel sounds present, Soft to palpation and non-tender PALPATION: Yes Soft to palpation Extremity: COMMON NORMALS: no joint enlargement and no pedal edema Neuro: COMMON NORMALS: patient oriented x3 and moves all extremities S ENSORIUM/ORIENTATION: Yes alert Skin: COMMON NORMALS: no rashes or lesions noted GENERAL SKIN EXAM: no rashes or lesions noted Data 09/06/23 05:28 09/06/23 05:28 A&P Assessment and plan (1) Status post tracheostomy: Reviewed vitals, CBC, BMP. Mild leukocytosis today. Suspect stress/surgery related. He is having little bit more secretions today. Continue to suction. Continue pulmonary toilet. Reassessed by ENT, reviewed ENT note. Discussed with speech therapist. Per his work with speech therapy today unfortunately had quite a bit of cough with each swallowing at times. Recommended n.p.o. for now. Continuing. As per recommendation on review of speech therapy note [place] [facility] [place] until Friday per discussion with patient and his . In case unable to tolerate any consistency by mouth safely, feeding tube may need to be considered. Case management working with family for arrangements for appointment for after discharge. ENT planning trach exchange at 7 days. Continue IV morphine as needed for pain. Ativan as needed for anxiety. Has been requiring IV medications due to not tolerating oral intake so far. Gentle IV hydration. (2) Airway compromise: As above. Airway compromise with airway edema, stridor following intubation after supraglottic mass biopsy, at risk of respiratory arrest, underwent tracheostomy on 09/02. Will request case management consultation to allow for equipment to be set up for patient and his to continue tracheostomy care at home once ready for discharge. They will also need education. IV morphine for pain control for now. Gentle IV hydration. N.p.o. for now until cleared for oral intake by ENT. Recently with hemoptysis suspected due to the mass, increased secretions from oropharynx/upper airway. 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 Status post biopsy. Follow-up. Appearance/concern of malignancy. (4) Smoking addiction: Encourage smoking cessation. He is agreeable to nicotine patches, is wearing around right now. Continue 21 mg patches. Patient and family would like to use his own patches which they brought in. Attestations 2 Medical Necessity Statement*: Continue admission for assessment management of new tracheostomy status post airway compromise with laryngeal swelling. Dysphagia. Unable to tolerate oral intake. Diagnoses Status post tracheostomy Z93.0 Airway compromise J98.8 Supraglottic mass J38.7 Smoking addiction F17.200
[2023-09-06] MEDS: nicotine 21 mg Patch 1 PATCH TRANSDERMA (20:25)
[2023-09-07] VITALS (27 sets, daily range): BP systolic 113–165; BP diastolic 73–100; PULSE 66–90; RESP 12–31; TEMP 36.3–37.3; O2SAT 88–98
[2023-09-07] MEDS: morphine 4 mg/mL SDV 1 mL 2 MG IVP ×6 (00:04→22:24)
[2023-09-07 03:55] LABS: Basophils # 0.1 10^3/uL (0.0-0.1); Basophils % 0.5 %; Eosinophils # 0.1 10^3/uL (0.0-0.8); Eosinophils % 0.7 %; Hematocrit 39.5 % (37-53); Lymphocytes # 1.8 10^3/uL (0.8-4.8); Lymphocytes % 17.7 %; Mean Corpuscular HGB Conc 32.9 g/dL (30-55); Mean Corpuscular Hemoglobin 29.3 pg (27-33); Mean Corpuscular Volume 89.2 fl (82-101); Monocytes # 0.7 10^3/uL (0.2-0.9); Monocytes % 6.8 %; Neutrophils # 7.41 10^3/uL (1.8-7.7); Neutrophils % 74.1 %; Nucleated Red Blood Cells % 0 %; Platelet Count 183 10^3/cmm (157-399); Red Blood Count 4.43 10^6/uL (3.85-5.65); Red Cell Distribution Width 12.6 % (12.1-15.1)
[2023-09-07 04:14] LABS: Anion Gap 14.8 (5-19); Blood Urea Nitrogen 17 mg/dL (8-23); Calcium 8.1 mg/dL (8.5-10.5); Carbon Dioxide 28 mmol/L (22-29); Chloride 102 mmol/L (98-107); Creatinine Clr Calc Pharmacy 90.5807; Glomerular Filtration Rate 113.9 mL/min (90-130); Glucose 121 mg/dL (65-115); Osmolality Calculated 295 mOsm/kg (285-295); Potassium 3.8 mmol/L (3.5-5.1); Sodium 141 mmol/L (136-145)
[2023-09-07] MEDS: lactated ringers 1,000 ML 50 ML IV (08:43)
[2023-09-07] MEDS: LORazepam 2 mg/mL INJ 10 mL MDV 0.5 MG IVP ×2 (09:25→20:09)
--- NOTE | 2023-09-07 11:26 | PC.SLP ---
Patient asleep. present and reported patient felt better after respiratory therapy performed trach [facility]. reported patient attempted to swallow this am but reported continued difficulty. Discussed with Dr. Viera that patient is at high risk for aspiration and recommend NPO until MBS completed on Friday.
--- NOTE | 2023-09-07 11:41 | P.PN_ITS ---
Subjective 2 Subjective: Since yesterday Mr. Rajan had an attempt at trying to drink and was unsuccessful. He currently has the cuff down and breathing easily. Awaiting swallow study tomorrow. Medications: Reviewed: Yes Vitals/I&O/Wt Last Vital Signs Temp 98.4 F 09/07/23 04:00 Pulse 76 09/07/23 09:27 Resp 16 09/07/23 08:42 BP 113/73 09/07/23 05:00 Pulse Ox 97 09/07/23 09:27 O2 Del Method HAG 09/07/23 09:27 O2 Flow Rate 6 09/07/23 09:27 FiO2 21 09/06/23 17:43 09/06/23 09/07/23 09/07/23 22:59 06:59 14:59 Intake Total 1115.833 / 1115.833 Output Total 520 / 895 220 / 1115 200 / 200 Balance -520 / 214 -220 / -6 915.833 / 915.833 Weight last 48 hrs Weight 123 lb 6.4 oz Physical Exam 2 Narrative: Trach tube in place. Patent. No obstruction evident. Breathing quietly. Resting at this time. Cuff down. Trach site without any swelling or erythema. No excessive secretions. No sign of infection or bleeding. Pathology still pending. Data 09/07/23 03:03 09/07/23 03:03 A&P Assessment and plan (1) Status post tracheostomy: Assessment: Patient is status post tracheostomy following direct laryngoscopy and biopsy of right sided supraglottic mass. He is now postop day 4. Stable in regards to his airway. Issue still continues in regards to his swallowing without aspiration or with inability to swallow with the cuff up. (2) Supraglottic mass: Plan Plan: Proceed with the swallow study tomorrow. The patient will continue n.p.o. at this point. Will have to determine based on the swallow study whether he will need to have a PEG tube placed for feeding and nutrition. Advised the nurse that the patient's should be taught how to do cleaning and management of the trach site and suctioning. Arrangements are being made for supplies from HOME. First week supply will need to be obtained from them. The site where the supplies can be covered by the patient's insurance will not have them until about a week from now. The plan will be to change his trach over either to a cuffed or uncuffed tube based on his swallowing ability on postop day 7. Whether that will be as an inpatient or an outpatient depends on his status at that time. Maintain proper moisturization for his trach site. Attestations 2 Medical Necessity Statement*: Patient continues to need care for his postop day for tracheostomy and his inability to swallow and handle secretions and prevent aspiration. Not having problems with saliva. Not choking with the cuff down. Sleeping comfortably at this time but airway protection and care and swallowing and ability still require close observation and care. Coding Level of Care Code 78439 Diagnoses Status post tracheostomy Z93.0 Supraglottic mass J38.7
--- NOTE | 2023-09-07 17:39 | P.PN_ITS ---
Subjective 2 Subjective: Having somewhat more secretions today. Pain slightly better. Having much more difficulty with swallowing today. Vitals/I&O/Wt Last Vital Signs Temp 99.2 F 09/07/23 12:00 Pulse 74 09/07/23 14:00 Resp 16 09/07/23 13:46 BP 128/86 09/07/23 12:00 Pulse Ox 93 09/07/23 13:46 O2 Del Method Trach Collar 09/07/23 12:00 O2 Flow Rate 6 09/07/23 09:27 FiO2 28 09/07/23 12:00 09/07/23 09/07/23 09/07/23 06:59 14:59 22:59 Intake Total 1115.833 / 1115.833 Output Total 220 / 1115 425 / 425 Balance -220 / -6 690.833 / 690.833 Weight last 48 hrs Weight 55.792 kg Weight 55.973 kg Physical Exam 2 Narrative: Accompanied by his at bedside. Const: COMMON NORMALS: patient oriented x3 and alert GENERAL APPEARANCE: c ooperative ORIENTATION/CONSCIOUSNESS: Yes awake HENMT: COMMON NORMALS: oropharynx normal OTHER: Tracheostomy. No bleeding around the tracheostomy. Neck/C-Spine: COMMON NORMALS: no JVD Resp: COMMON NORMALS: normal respiratory effort and clear to auscultation bilaterally AUSCULTATION: clear to auscultation bilaterally Cardio: COMMON NORMALS: no JVD, regular rhythm, S1 normal heart sound present, S2 normal heart sound present and No murmurs present (Cardio) RHYTHM: regular rhythm HEART SOUNDS: S1 normal heart sound present and S2 normal heart sound present GI: COMMON NORMALS: Normal to inspection, nondistended, normoactive bowel sounds present, Soft to palpation and non-tender PALPATION: Yes Soft to palpation Extremity: COMMON NORMALS: no joint enlargement and no pedal edema Neuro: COMMON NORMALS: patient oriented x3 and moves all extremities S ENSORIUM/ORIENTATION: Yes alert Skin: COMMON NORMALS: no rashes or lesions noted GENERAL SKIN EXAM: no rashes or lesions noted Data 09/07/23 03:03 09/07/23 03:03 A&P Assessment and plan (1) Status post tracheostomy: Having much more difficulty with swallowing today. Pain is slightly better. Reports more secretions. Reviewed vitals, CBC, BMP, reviewed ENT note. Discussed with speech therapist. His reports he does little bit better with thickened liquids, Jell-O. In case unable to tolerate any consistency by mouth safely, feeding tube may need to be considered. Case management working with family for arrangements for appointment for after discharge. ENT planning trach exchange at 7 days. Continue IV morphine as needed for pain until able to tolerate oral medication. Ativan as needed for anxiety. Has been requiring IV medications due to not tolerating oral intake so far. Gentle IV hydration. (2) Airway compromise: As above. Airway compromise with airway edema, stridor following intubation after supraglottic mass biopsy, at risk of respiratory arrest, underwent tracheostomy on 09/02. Will request case management consultation to allow for equipment to be set up for patient and his to continue tracheostomy care at home once ready for discharge. They will also need education. IV morphine for pain control for now. Gentle IV hydration. N.p.o. for now until cleared for oral intake by ENT. Recently with hemoptysis suspected due to the mass, increased secretions from oropharynx/upper airway. 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 Status post biopsy. Follow-up. Appearance/concern of malignancy. (4) Smoking addiction: Encourage smoking cessation.Continue 21 mg patches. Patient and family would like to use his own patches which they brought in. Attestations 2 Medical Necessity Statement*: Continue admission for assessment management of new tracheostomy status post airway compromise with laryngeal swelling. Dysphagia. Unable to tolerate oral intake. Diagnoses Status post tracheostomy Z93.0 Airway compromise J98.8 Supraglottic mass J38.7 Smoking addiction F17.200
[2023-09-07] MEDS: nicotine 21 mg Patch 1 PATCH TRANSDERMA (20:10)
--- NOTE | 2023-09-07 21:05 | PC.NURSE ---
Pt arrived from ICU to room 257, report received from Lalita WHITEHEAD. Pt set up in room and is comfortable at this time.
--- NOTE | 2023-09-07 21:30 | PC.NURSE ---
Transferred to Med Surg: Patient and all belongings were transferred to Med Surg unit. Receiving nurse and RT at bedside.
[2023-09-08] VITALS (16 sets, daily range): BP systolic 120–128; BP diastolic 75–79; PULSE 63–78; RESP 17–20; TEMP 36.3–37; O2SAT 93–99; BMI 20.5
[2023-09-08] MEDS: morphine 4 mg/mL SDV 1 mL 2 MG IVP ×5 (00:24→21:06)
[2023-09-08] MEDS: LORazepam 2 mg/mL INJ 10 mL MDV 0.5 MG IVP ×3 (04:04→18:42)
[2023-09-08] MEDS: lactated ringers 1,000 ML 50 ML IV (04:09)
--- NOTE | 2023-09-08 04:09 | PC.NURSE ---
Pt request lorazepam for anxiety. Prefilled syringe w/1ml/2mg or lorazepam pulled from [employer], 0.75ml/1.5mg wasted witnessed by Akbar Javier RN. Lorazepam 0.5mg/0.25ml administered to pt via IVP.
[2023-09-08 06:21] LABS: Basophils # 0.1 10^3/uL (0.0-0.1); Basophils % 0.8 %; Eosinophils # 0.2 10^3/uL (0.0-0.8); Eosinophils % 2.1 %; Hematocrit 37.4 % (37-53); Lymphocytes # 2.1 10^3/uL (0.8-4.8); Lymphocytes % 24.5 %; Mean Corpuscular HGB Conc 32.6 g/dL (30-55); Mean Corpuscular Hemoglobin 29.1 pg (27-33); Mean Corpuscular Volume 89.3 fl (82-101); Mean Platelet Volume 11.2 fL (7.4-10.4); Monocytes # 0.7 10^3/uL (0.2-0.9); Monocytes % 7.5 %; Neutrophils # 5.57 10^3/uL (1.8-7.7); Neutrophils % 64.8 %; Nucleated Red Blood Cells % 0 %; Platelet Count 203 10^3/cmm (157-399); Red Blood Count 4.19 10^6/uL (3.85-5.65); Red Cell Distribution Width 12.7 % (12.1-15.1); White Blood Count 8.61 10^3/uL (3.29-11.43)
[2023-09-08 06:43] LABS: Anion Gap 14.7 (5-19); Blood Urea Nitrogen 19 mg/dL (8-23); Calcium 8.3 mg/dL (8.5-10.5); Carbon Dioxide 27 mmol/L (22-29); Chloride 103 mmol/L (98-107); Creatinine Clr Calc Pharmacy 90.6363; Glomerular Filtration Rate 113.9 mL/min (90-130); Glucose 87 mg/dL (65-115); Osmolality Calculated 294 mOsm/kg (285-295); Potassium 3.7 mmol/L (3.5-5.1); Sodium 141 mmol/L (136-145)
--- NOTE | 2023-09-08 08:00 | FL_ITS ---
WS: [id number] FL barium swallow modifd [id number] REASON FOR EXAM: Oropharyngeal dysphagia FLUOROSCOPY TIME: 1min [id number] # OF SPOT FILMS: 0 FINDINGS: Examination was supervised by the speech therapy department. The patient was examined in the upright sitting position with very small amounts of liquid and thicke dyan barium barium administered. Multiple swallows were video recorded. The speech therapy department will render a detailed report of the swallowing. Glottic/supraglottic mass with delia aspiration. IMPRESSION: Modified barium swallow as above.
[2023-09-08 14:26] LABS: Iron 24 ug/dL (59-158); Percent Saturation 13.1 % (20-50); Thyroid Stimulating Hormone 1.41 uIU/mL (0.27-4.20); Total Iron Binding Capacity 182 mcg/dl; Unsaturated Iron Binding 158 ug/dL (112-347); Vitamin B12 1680 pg/mL (232-1245)
--- NOTE | 2023-09-08 15:52 | P.PN_ITS ---
Subjective 2 Subjective: Hospital course frog-legged appreciated. Today morning patient seen post modified barium swallow. Had episode of coughing and bloody mucus being secreted from the trach which was suctioned out. Patient is comfortable. Denies any nausea, ting, headache. Able to communicate through writing on the pad. Medications: Reviewed: Yes Vitals/I&O/Wt Last Vital Signs Temp 97.6 F 09/08/23 13:04 Pulse 67 09/08/23 13:04 Resp 18 09/08/23 13:04 BP 123/76 09/08/23 13:04 Pulse Ox 99 09/08/23 13:04 O2 Del Method Room Air 09/08/23 13:04 O2 Flow Rate 8 09/08/23 13:00 FiO2 28 09/07/23 12:00 09/08/23 09/08/23 09/08/23 06:59 14:59 22:59 Intake Total 971.667 / 2327.500 Output Total 225 / 800 275 / 275 Balance 746.667 / 1527.500 -275 / -275 Weight last 48 hrs Weight 56.064 kg Weight 55.792 kg Physical Exam 2 Narrative: No acute distress, able to communicate through writing on the pad Const: COMMON NORMALS: patient oriented x3 and alert GENERAL APPEARANCE: c ooperative ORIENTATION/CONSCIOUSNESS: Yes awake HENMT: COMMON NORMALS: oropharynx normal OTHER: Tracheostomy. No bleeding around the tracheostomy. Neck/C-Spine: COMMON NORMALS: no JVD Resp: COMMON NORMALS: normal respiratory effort and clear to auscultation bilaterally AUSCULTATION: clear to auscultation bilaterally Cardio: COMMON NORMALS: no JVD, regular rhythm, S1 normal heart sound present, S2 normal heart sound present and No murmurs present (Cardio) RHYTHM: regular rhythm HEART SOUNDS: S1 normal heart sound present and S2 normal heart sound present GI: COMMON NORMALS: Normal to inspection, nondistended, normoactive bowel sounds present, Soft to palpation and non-tender PALPATION: Yes Soft to palpation Extremity: COMMON NORMALS: no joint enlargement and no pedal edema Neuro: COMMON NORMALS: patient oriented x3 and moves all extremities S ENSORIUM/ORIENTATION: Yes alert Skin: COMMON NORMALS: no rashes or lesions noted GENERAL SKIN EXAM: no rashes or lesions noted Data 09/08/23 05:06 09/08/23 05:06 A&P Assessment and plan (1) Status post tracheostomy: Appreciate ENT recommendations. Plan for trach change at 7 days. Case management working on getting equipment as an outpatient. Not able to maintain oral intake. Having difficulty in swallowing. As per the patient he was having difficulty in swallowing even before the procedure but has gotten worse since tracheostomy. Appreciate modified barium swallow. Currently not safe to tolerate any kind of consistency safely. Discussed in detail with Dr. King from ENT. As per the ENT postoperative edema would have resolved by now as patient received high-dose Decadron perioperatively. And as patient was having issues with swallowing even preoperatively his concerns of difficulty to swallow are most likely in the setting of tumor burden and patient would possibly need PEG tube placement. Continue IV morphine as needed for pain until able to tolerate oral medication. Ativan as needed for anxiety. Has been requiring IV medications due to not tolerating oral intake so far. Gentle IV hydration. (2) Airway compromise: Trach care. 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 Status post biopsy. Follow-up. Appearance/concern of malignancy. (4) Smoking addiction: Encourage smoking cessation.Continue 21 mg patches. Patient and family would like to use his own patches which they brought in. Plan Full code N.p.o. SCDs for DVT prophylaxis Famotidine for PUD prophylaxis Attestations 2 Medical Necessity Statement*: Requires further hospitalization as patient is not able to maintain oral intake in setting of supraglottic mass post tracheostomy while definitive mode of nutrition is sought Diagnoses Status post tracheostomy Z93.0 Airway compromise J98.8 Supraglottic mass J38.7 Smoking addiction F17.200
[2023-09-08] MEDS: famotidine 20 mg/2 mL INJ IVP (16:55)
[2023-09-08] MEDS: nicotine 21 mg Patch 1 PATCH TRANSDERMA (21:01)
[2023-09-09] VITALS (18 sets, daily range): BP systolic 111–129; BP diastolic 57–83; PULSE 61–73; RESP 15–24; TEMP 36.4–36.9; O2SAT 90–98
[2023-09-09] MEDS: LORazepam 2 mg/mL INJ 10 mL MDV 0.5 MG IVP ×3 (00:13→18:48)
[2023-09-09] MEDS: morphine 4 mg/mL SDV 1 mL 2 MG IVP ×7 (00:13→23:50)
[2023-09-09] MEDS: lactated ringers 1,000 ML 50 ML IV ×2 (00:22→21:22)
[2023-09-09] MEDS: famotidine 20 mg/2 mL INJ IVP ×2 (03:46→16:29)
[2023-09-09 06:21] LABS: Basophils # 0.1 10^3/uL (0.0-0.1); Eosinophils # 0.3 10^3/uL (0.0-0.8); Eosinophils % 2.7 %; Hematocrit 38.9 % (37-53); Lymphocytes # 1.6 10^3/uL (0.8-4.8); Lymphocytes % 17.6 %; Mean Corpuscular HGB Conc 32.9 g/dL (30-55); Mean Corpuscular Hemoglobin 29.6 pg (27-33); Mean Platelet Volume 10.6 fL (7.4-10.4); Monocytes # 0.6 10^3/uL (0.2-0.9); Monocytes % 6.5 %; Neutrophils # 6.63 10^3/uL (1.8-7.7); Nucleated Red Blood Cells % 0 %; Platelet Count 228 10^3/cmm (157-399); Red Blood Count 4.32 10^6/uL (3.85-5.65); Red Cell Distribution Width 12.5 % (12.1-15.1); White Blood Count 9.21 10^3/uL (3.29-11.43)
[2023-09-09 06:24] LABS: Alanine Aminotransferase 9 U/L (0-41); Albumin Level 3.3 g/dL (3.5-5.2); Alkaline Phosphatase 65 U/L (40-130); Anion Gap 18.2 (5-19); Aspartate Amino Transferase 9 U/L (0-40); Blood Urea Nitrogen 22 mg/dL (8-23); Carbon Dioxide 25 mmol/L (22-29); Chloride 101 mmol/L (98-107); Creatinine Clr Calc Pharmacy 90.8166; Globulin 3.1 g/dL (1.3-4.6); Glomerular Filtration Rate 113.9 mL/min (90-130); Glucose 65 mg/dL (65-115); Osmolality Calculated 291 mOsm/kg (285-295); Potassium 4.2 mmol/L (3.5-5.1); Sodium 140 mmol/L (136-145); Total Bilirubin 0.4 mg/dL (0.15-1.2); Total Protein 6.4 g/dL (6.6-8.7)
[2023-09-09 06:25] LABS: Chol HDL Ratio 4.34 mg/dL (1.0-5.00); Cholesterol 139 mg/dL (0-200); HDL Cholesterol 32 mg/dL (60-100); LDL Cholesterol Calculated 82 mg/dL (50-129); Magnesium 1.6 mg/dL (1.7-2.3); Triglycerides 125 mg/dL (0-150); VLDL Cholestrol Calculation 25 mg/dL (0-30)
[2023-09-09 06:59] LABS: Estmated Average Glucose 105; Hemoglobin A1C 5.3 % (4.0-6.0)
--- NOTE | 2023-09-09 09:04 | PC.RESP ---
pt. is on a 21% HAG
--- NOTE | 2023-09-09 12:29 | P.PN_ITS ---
Subjective 2 Subjective: 63-year-old male patient with right supr aglottic mass previously biopsied 6 days ago in the operating room. Postoperatively he required a tracheostomy to be placed urgently to protect his airway due to significant edema. Patient has had issues with aspiration and choking. Attempts to have him feed with the cuff down or up have been unsuccessful. Really is not taking in much orally. Currently NPO. Medications: Reviewed: Yes Vitals/I&O/Wt Last Vital Signs Temp 98.1 F 09/09/23 07:29 Pulse 70 09/09/23 08:00 Resp 24 H 09/09/23 10:36 BP 116/68 09/09/23 07:29 Pulse Ox 98 09/09/23 08:00 O2 Del Method HAG 09/09/23 08:00 O2 Flow Rate 8 09/08/23 21:11 FiO2 28 09/07/23 12:00 09/08/23 09/09/23 09/09/23 22:59 06:59 14:59 Intake Total 300 / 300 1000 / 1300 0 / 0 Output Total 475 / 750 200 / 950 200 / 200 Balance -175 / -450 800 / 350 -200 / -200 Weight last 48 hrs Weight 124 lb 4 oz Weight 123 lb 9.6 oz Physical Exam 2 Narrative: Trach site stable. Incision healing. Patient coughing up secretions through the trach. No sign of bleeding or infection. Pathology has returned as moderately poorly differentiated invasive squamous cell carcinoma. 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 Pathology shows moderately poorly differentiated invasive squamous cell carcinoma. Patient having problems with difficulty swallowing and aspiration. Being kept NPO. (2) Status post tracheostomy: (3) Dysphagia: Qualifiers: Dysphagia type: pharyngeal phase Qualified Code(s): R13.13 - Dysphagia, pharyngeal phase (4) Aspiration into airway: Qualifiers: Encounter type: sequela Qualified Code(s): T17.908S - Unspecified foreign body in respiratory tract, part unspecified causing other injury, sequela Plan Plan: Patient will have his tracheostomy tube changed over to a similar Shiley 8 cuffed trach tube tomorrow. Consult has been placed with Dr. Isaacs. I have talked to him personally. He understands the urgency in getting the external feeding tube placed in his stomach as that is really the only thing holding him from being discharged home. I will also contact Dr. Valdez and oncology with the pathology and hopefully get him seen very soon so he can get started on radiation therapy. The patient already has a PET scan scheduled for September 23, 2023. Attestations 2 Medical Necessity Statement*: Postop care for tracheostomy placed 6 days ago. Not able to take oral liquids or solids at this time. 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
--- NOTE | 2023-09-09 12:46 | P.PN_ITS ---
Subjective 2 Subjective: Updated progress note from earlier today Vitals/I&O/Wt Last Vital Signs Temp 98.1 F 09/09/23 07:29 Pulse 70 09/09/23 08:00 Resp 24 H 09/09/23 10:36 BP 116/68 09/09/23 07:29 Pulse Ox 98 09/09/23 08:00 O2 Del Method HAG 09/09/23 08:00 O2 Flow Rate 8 09/08/23 21:11 FiO2 28 09/07/23 12:00 09/08/23 09/09/23 09/09/23 22:59 06:59 14:59 Intake Total 300 / 300 1000 / 1300 0 / 0 Output Total 475 / 750 200 / 950 200 / 200 Balance -175 / -450 800 / 350 -200 / -200 Weight last 48 hrs Weight 124 lb 4 oz Weight 123 lb 9.6 oz Data 09/09/23 05:24 09/09/23 05:24 A&P Assessment and plan (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 Trach in place. Unable to take oral nutrition. (2) Status post tracheostomy: (3) Dysphagia: Qualifiers: Dysphagia type: pharyngeal phase Qualified Code(s): R13.13 - Dysphagia, pharyngeal phase (4) Aspiration into airway: Qualifiers: Encounter type: sequela Qualified Code(s): T17.908S - Unspecified foreign body in respiratory tract, part unspecified causing other injury, sequela Plan Plan: This is an addendum to the previous note from earlier today. I have discussed the patient's need for a feeding tube externally with Dr. Isaasc. I have also discussed his need to get started on radiation therapy as soon as possible with oncology. They are informed that his PET/CT is scheduled currently for 09/23/2023. I suggested do to the rather aggressive nature of his tumor and the pathology now available, that he get started as quickly as possible and radiation therapy. Whether he will need chemotherapy will depend upon PET scan results. Attestations 2 Medical Necessity Statement*: Fresh tracheostomy tube in place postop day 6. Need for external feeding tube placement. 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
--- NOTE | 2023-09-09 15:18 | P.PN_ITS ---
Subjective 2 Subjective: No events overnight. Patient has had episodes of anxiety otherwise no complaints. Has remained hemodynamically stable and afebrile. Converted to [facility]. Medications: Reviewed: Yes Vitals/I&O/Wt Last Vital Signs Temp 98.1 F 09/09/23 07:29 Pulse 70 09/09/23 08:00 Resp 24 H 09/09/23 10:36 BP 116/68 09/09/23 07:29 Pulse Ox 98 09/09/23 08:00 O2 Del Method HAG 09/09/23 08:00 O2 Flow Rate 8 09/08/23 21:11 FiO2 28 09/07/23 12:00 09/09/23 09/09/23 09/09/23 06:59 14:59 22:59 Intake Total 1000 / 1300 0 / 0 Output Total 200 / 950 400 / 400 Balance 800 / 350 -400 / -400 Weight last 48 hrs Weight 56.359 kg Weight 56.064 kg Physical Exam 2 Narrative: No acute distress, able to communicate through writing on the pad Const: COMMON NORMALS: patient oriented x3 and alert GENERAL APPEARANCE: c ooperative ORIENTATION/CONSCIOUSNESS: Yes awake HENMT: COMMON NORMALS: oropharynx normal OTHER: Tracheostomy. No bleeding around the tracheostomy. Neck/C-Spine: COMMON NORMALS: no JVD Resp: COMMON NORMALS: normal respiratory effort and clear to auscultation bilaterally AUSCULTATION: clear to auscultation bilaterally Cardio: COMMON NORMALS: no JVD, regular rhythm, S1 normal heart sound present, S2 normal heart sound present and No murmurs present (Cardio) RHYTHM: regular rhythm HEART SOUNDS: S1 normal heart sound present and S2 normal heart sound present GI: COMMON NORMALS: Normal to inspection, nondistended, normoactive bowel sounds present, Soft to palpation and non-tender PALPATION: Yes Soft to palpation Extremity: COMMON NORMALS: no joint enlargement and no pedal edema Neuro: COMMON NORMALS: patient oriented x3 and moves all extremities S ENSORIUM/ORIENTATION: Yes alert Skin: COMMON NORMALS: no rashes or lesions noted GENERAL SKIN EXAM: no rashes or lesions noted Data 09/09/23 05:24 09/09/23 05:24 A&P Assessment and plan (1) Status post tracheostomy: Appreciate ENT recommendations. Plan for trach change at 7 days. Case management working on getting equipment as an outpatient. Not able to maintain oral intake. Having difficulty in swallowing. As per the patient he was having difficulty in swallowing even before the procedure but has gotten worse since tracheostomy. Appreciate modified barium swallow. Currently not safe to tolerate any kind of consistency safely. Discussed in detail with Dr. Felipe from ENT. As per the ENT postoperative edema would have resolved by now as patient received high-dose Decadron perioperatively. And as patient was having issues with swallowing even preoperatively his concerns of difficulty to swallow are most likely in the setting of tumor burden and patient would possibly need PEG tube placement. Continue IV morphine as needed for pain until able to tolerate oral medication. Ativan as needed for anxiety. Has been requiring IV medications due to not tolerating oral intake so far. Gentle IV hydration. Patient is more amenable to feeding tube or external nutrition now. Plan for gastrostomy tube surgically versus PEG tube placement. Dr. Rip Finley consulted by ENT team. Appreciate input. (2) Airway compromise: Trach care. (3) Supraglottic mass: Appreciate biopsy result with concern for malignancy. Plan for PET scan as an outpatient on 09/22 with radiation therapy and possible chemotherapy as per PET results (4) Smoking addiction: Encourage smoking cessation.Continue 21 mg patches. Patient and family would like to use his own patches which they brought in. Plan Replace magnesium. Full code N.p.o. SCDs for DVT prophylaxis Famotidine for PUD prophylaxis Attestations 2 Medical Necessity Statement*: Requires further hospitalization for management of malnutrition while definitive nutrition plan is sought in a patient with supraglottic mass post tracheostomy, postop care Diagnoses Status post tracheostomy Z93.0 Airway compromise J98.8 Supraglottic mass J38.7 Smoking addiction F17.200
[2023-09-09] MEDS: magnesium sulfate premix 2 GM/50 ML PIGGYBACK IV (16:29)
--- NOTE | 2023-09-09 16:38 | P.CONIM_ITS ---
Providers/Reason For Consult 2 Consulting Physician/Specialty*: General surgery Reason for Consult*: Need for gastrostomy tube Attending Physician: Martinez Fernandes MD Primary Care Provider: Laine Berrios DO History of Present Illness History of Present Illness Gilson Rajan is a 63 year old male with a supraglottic mass, who has severe dysphagia with delia aspiration. He was recently trach due to the supraglottic mass obstructing the airway. I was consulted as the patient has been a unable to eat and feeding access is requested. Review of Systems 2 General: Reports: 10 or more systems reviewed and unremarkable except in HPI and below Medications/Allergies Home Medications Medication Instructions Recorded Confirmed Last Taken Type aspirin 81 mg tablet,delayed 81 mg PO DAILY 07/21/19 09/02/23 08/12/23 History release Allergies Allergy/AdvReac Type Severity Reaction Status Date / Time Penicillins Allergy ALGY-Hives Verified 08/28/23 08:19 Current Medications Generic Name Dose Route Start Last Admin Trade Name Freq PRN Reason Stop Dose Admin Famotidine 20 mg 09/08/23 16:00 09/09/23 16:29 Famotidine 20 Mg/2 Ml Inj IVP 20 mg Q12H CINDY Administration Lactated Ringer's 1,000 mls @ 50 mls/hr 09/03/23 20:00 09/09/23 00:22 Lactated Ringers IV 50 mls/hr .Q20H CINDY Administration Lorazepam 0.5 mg 09/04/23 13:41 09/09/23 10:41 Lorazepam 2 Mg/Ml Inj 10 Ml Mdv IVP 0.5 mg Q6H PRN Administration ANXIETY Morphine Sulfate 2 mg 09/04/23 12:04 09/09/23 10:36 Morphine 4 Mg/Ml Sdv 1 Ml IVP 2 mg Q2H PRN Administration SEVERE PAIN Nicotine 1 patch 09/03/23 21:00 09/08/23 21:01 Nicotine 21 Mg Patch TRANSDERMA 1 patch Q24H CINDY Administration PFSH Acute 2 PFSH: Medical History Broken wrist History of basal cell carcinoma (BCC) of skin On shoulder - 5-6 years ago Benign non-nodular prostatic hyperplasia with lower urinary tract symptoms Abnormal PSA Surgical History History of cataract surgery with lens implant Hx of appendectomy Family History Father , AT AGE 64 LUNG CANCER No problems noted. Social History Smoking and tobacco/nicotine status: current every day tobacco/nicotine user cigarettes Packs smoked per day: 1.5 Years cigarettes smoked: 50 Quit status (tobacco/nicotine): quit date established Planned quit date: 08/14/23 Second hand smoke exposure: No Alcohol intake: never Substance/Drug Use: current Substance/Drug use frequency: few times a week Adopted: No Caregiver/support person: No Lives independently: No Household members: spouse Marital status: service: No Current occupational status: employed Pets and animals: Yes Pets & animals: cat(s) and dog(s) Current gender identity: Male Special regino needs: No Vitals/I&O/Wt Last Vital Signs Temp 98.2 F 09/09/23 16:28 Pulse 73 09/09/23 16:28 Resp 15 09/09/23 16:28 BP 116/72 09/09/23 16:28 Pulse Ox 90 09/09/23 16:28 O2 Del Method Room Air 09/09/23 16:28 O2 Flow Rate 8 09/08/23 21:11 FiO2 28 09/07/23 12:00 09/09/23 09/09/23 09/09/23 06:59 14:59 22:59 Intake Total 1000 / 1300 0 / 0 Output Total 200 / 950 400 / 400 Balance 800 / 350 -400 / -400 Weight last 48 hrs Weight 124 lb 4 oz Weight 123 lb 9.6 oz Physical Exam 2 Narrative: General : Patient is well developed , no acute distress, oriented x3 Head : Normal cephalic, a-traumatic. Neck: Tracheostomy noted Lungs : Equal chest rise bilaterally, no use of accessory muscles, trachea is midline. CV : Rate and rhythm are normal. Abdomen : Soft, ND, NT, no g/r/m, infraumbilical incision from previous open appendectomy noted Extremities : No edema. Upper extremities are normal bilaterally. Back : non-tender to palpation, no CVA tenderness. Data 09/09/23 05:24 09/09/23 05:24 A&P Assessment and plan (1) Hoarseness, chronic: (2) Supraglottic mass: (3) Status post tracheostomy: Plan After complete history, physical examination and review of all available clinical data the following is my assessment. This is a 63-year-old male who has a supraglottic mass that is obstructing and therefore I have been consulted for a surgical gastrostomy. I have a discussion over the phone with ENT attending who has explained that the mass is completely obstructing and therefore patient is not a good candidate to proceed with percutaneous endoscopic gastrostomy. Since this is the case, the plan will be to proceed with an open gastrostomy tube placement. I have discussed with the patient all risk and benefits including the risk of a bleeding, infection, hernia formation, need for additional interventions, damage to surrounding structures, tube feeding leakage intra-abdominal cavity, gastrostomy tube infection, gastrostomy after discussion of all risk benefits the patient and family member agreed to proceed. We will book the tube dislodgment, gastrostomy tube obstruction requiring replacement. Peritonitis, sepsis, . Case for as our schedule allows. Please give the patient n.p.o. after midnight on Friday. Coding Level of Care Code 67798 Diagnoses Hoarseness, chronic R49.0 Supraglottic mass J38.7 Status post tracheostomy Z93.0
[2023-09-09] MEDS: nicotine 21 mg Patch 1 PATCH TRANSDERMA (21:21)
[2023-09-10] VITALS (12 sets, daily range): BP systolic 105–137; BP diastolic 55–82; PULSE 65–71; RESP 16–20; TEMP 36.8–37.5; O2SAT 87–96
[2023-09-10] MEDS: LORazepam 2 mg/mL INJ 10 mL MDV 0.5 MG IVP ×4 (01:03→20:21)
[2023-09-10] MEDS: famotidine 20 mg/2 mL INJ IVP ×2 (03:45→17:28)
[2023-09-10] MEDS: morphine 4 mg/mL SDV 1 mL 2 MG IVP ×7 (03:46→22:33)
[2023-09-10 05:05] LABS: Basophils # 0.1 10^3/uL (0.0-0.1); Eosinophils # 0.2 10^3/uL (0.0-0.8); Eosinophils % 2.6 %; Hematocrit 38.5 % (37-53); Lymphocytes % 22.1 %; Mean Corpuscular HGB Conc 32.7 g/dL (30-55); Mean Corpuscular Hemoglobin 29.2 pg (27-33); Mean Corpuscular Volume 89.3 fl (82-101); Mean Platelet Volume 9.7 fL (7.4-10.4); Monocytes # 0.7 10^3/uL (0.2-0.9); Monocytes % 7.9 %; Neutrophils # 5.85 10^3/uL (1.8-7.7); Neutrophils % 66.2 %; Nucleated Red Blood Cells % 0 %; Platelet Count 238 10^3/cmm (157-399); Red Blood Count 4.31 10^6/uL (3.85-5.65); Red Cell Distribution Width 12.2 % (12.1-15.1); White Blood Count 8.84 10^3/uL (3.29-11.43)
[2023-09-10 05:26] LABS: Alanine Aminotransferase 11 U/L (0-41); Albumin Level 3.1 g/dL (3.5-5.2); Alkaline Phosphatase 70 U/L (40-130); Anion Gap 18.9 (5-19); Aspartate Amino Transferase 9 U/L (0-40); Blood Urea Nitrogen 20 mg/dL (8-23); Calcium 8.8 mg/dL (8.5-10.5); Carbon Dioxide 23 mmol/L (22-29); Chloride 102 mmol/L (98-107); Creatinine Clr Calc Pharmacy 78.7822; Globulin 3.3 g/dL (1.3-4.6); Glomerular Filtration Rate 97.6 mL/min (90-130); Glucose 81 mg/dL (65-115); Osmolality Calculated 292 mOsm/kg (285-295); Potassium 3.9 mmol/L (3.5-5.1); Sodium 140 mmol/L (136-145); Total Bilirubin 0.4 mg/dL (0.15-1.2); Total Protein 6.4 g/dL (6.6-8.7)
[2023-09-10 05:27] LABS: Magnesium 1.7 mg/dL (1.7-2.3)
--- NOTE | 2023-09-10 13:50 | PM.PN ---
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 He had significant edema and required the tracheostomy tube be performed urgently. That tube has now been in place for 7 days. Ready to have that changed over today. Medications: Reviewed: Yes Vitals/I&O/Wt Last Vital Signs Temp 98.2 F 09/10/23 11:40 Pulse 65 09/10/23 11:40 Resp 16 09/10/23 11:40 BP 129/78 09/10/23 11:40 Pulse Ox 93 09/10/23 11:40 O2 Del Method Room Air 09/10/23 11:40 O2 Flow Rate 10 09/10/23 07:41 FiO2 28 09/07/23 12:00 09/09/23 09/10/23 09/10/23 22:59 06:59 14:59 Intake Total 1170 / 1170 1000 / 2170 Output Total 250 / 650 300 / 950 400 / 400 Balance 920 / 520 700 / 1220 -400 / -400 Weight last 48 hrs Weight 121 lb 7 oz Weight 124 lb 4 oz Physical Exam Narrative: The trach is patent and functioning properly. The Rj strap was removed. Suction was available. The new trach tube was readied with a new [place] in place. The sutures holding the trach in place were cut and removed. Suctioning was accomplished. The new trach tube which was not uncuffed fenestrated 8 Shiley was inserted and inner cannula placed. [place] was applied and tightened to 1 finger breath tautness. Sutures under the trach tubes that were placed to close the incision were removed. There was no evidence of dehiscence. No sign of infection. No excess granulation tissues. Patient had a little bit of coughing but did fine with the new tube in place. Data 09/10/23 05:00 09/10/23 05:00 A&P Assessment and plan (1) Status post tracheostomy: Assessment: Patient is 1 week status post tracheostomy done urgently due to edema from direct laryngoscopy and biopsy of a right supraglottic squamous cell carcinoma. Trach tube changed over to a fenestrated uncuffed tube. Still size 8 Shiley. Patient tolerated the change management well with just mild coughing. (2) Primary squamous cell carcinoma of supraglottis: Plan Plan: Patient will have his gastrostomy feeding tube placed by Dr. Isaacs tomorrow. As soon as they feel he is stable from that he should be able to be discharged. Attestations Medical Necessity Statement*: Need for tracheostomy care and pending G-tube placement tomorrow. 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
--- NOTE | 2023-09-10 15:11 | P.PN_ITS ---
Subjective 2 Subjective: No acute events overnight. Patient has remained medically stable and afebrile. Today morning seen with at bedside. Patient underwent changing of tracheostomy with ENT today. Plan for feeding tube placement in a.m. with surgical team tomorrow. Otherwise has remained hemodynamically stable and afebrile. Maintaining oxygenation. Medications: Reviewed: Yes Vitals/I&O/Wt Last Vital Signs Temp 98.2 F 09/10/23 11:40 Pulse 65 09/10/23 11:40 Resp 16 09/10/23 11:40 BP 129/78 09/10/23 11:40 Pulse Ox 93 09/10/23 11:40 O2 Del Method Room Air 09/10/23 11:40 O2 Flow Rate 10 09/10/23 07:41 FiO2 28 09/07/23 12:00 09/10/23 09/10/23 09/10/23 06:59 14:59 22:59 Intake Total 1000 / 2170 Output Total 300 / 950 400 / 400 Balance 700 / 1220 -400 / -400 Weight last 48 hrs Weight 55.083 kg Weight 56.359 kg Physical Exam 2 Narrative: No acute distress, able to communicate through writing on the pad Const: COMMON NORMALS: patient oriented x3 and alert GENERAL APPEARANCE: c ooperative ORIENTATION/CONSCIOUSNESS: Yes awake HENMT: COMMON NORMALS: oropharynx normal OTHER: Tracheostomy. No bleeding around the tracheostomy. Neck/C-Spine: COMMON NORMALS: no JVD Resp: COMMON NORMALS: normal respiratory effort and clear to auscultation bilaterally AUSCULTATION: clear to auscultation bilaterally Cardio: COMMON NORMALS: no JVD, regular rhythm, S1 normal heart sound present, S2 normal heart sound present and No murmurs present (Cardio) RHYTHM: regular rhythm HEART SOUNDS: S1 normal heart sound present and S2 normal heart sound present GI: COMMON NORMALS: Normal to inspection, nondistended, normoactive bowel sounds present, Soft to palpation and non-tender PALPATION: Yes Soft to palpation Extremity: COMMON NORMALS: no joint enlargement and no pedal edema Neuro: COMMON NORMALS: patient oriented x3 and moves all extremities S ENSORIUM/ORIENTATION: Yes alert Skin: COMMON NORMALS: no rashes or lesions noted GENERAL SKIN EXAM: no rashes or lesions noted Data 09/10/23 05:00 09/10/23 05:00 A&P Assessment and plan (1) Status post tracheostomy: Appreciate ENT recommendations. Plan for trach change at 7 days. Case management working on getting equipment as an outpatient. Not able to maintain oral intake. Having difficulty in swallowing. As per the patient he was having difficulty in swallowing even before the procedure but has gotten worse since tracheostomy. Appreciate modified barium swallow. Currently not safe to tolerate any kind of consistency safely. Discussed in detail with Dr. Felipe from ENT. As per the ENT postoperative edema would have resolved by now as patient received high-dose Decadron perioperatively. And as patient was having issues with swallowing even preoperatively his concerns of difficulty to swallow are most likely in the setting of tumor burden and patient would possibly need PEG tube placement. Continue IV morphine as needed for pain until able to tolerate oral medication. Ativan as needed for anxiety. Has been requiring IV medications due to not tolerating oral intake so far. Gentle IV hydration. Patient is more amenable to feeding tube or external nutrition now. Plan for gastrostomy tube surgically versus PEG tube placement. Dr. Rip Finley consulted by ENT team. Appreciate input. (2) Airway compromise: Trach care. (3) Supraglottic mass: Appreciate biopsy result with concern for malignancy. Plan for PET scan as an outpatient on 09/22 with radiation therapy and possible chemotherapy as per PET results (4) Smoking addiction: Encourage smoking cessation.Continue 21 mg patches. Patient and family would like to use his own patches which they brought in. Plan Replace magnesium. Full code N.p.o. SCDs for DVT prophylaxis Famotidine for PUD prophylaxis Plan for the day: Tracheostomy tube was changed over as per ENT today. Continue with IV hydration. Plan for feeding tube placement with surgical team tomorrow. Appreciate ENT and surgical team recommendations. Monitor hemodynamics, CBC and CMP daily. Attestations 2 Medical Necessity Statement*: Requires further hospitalization while definitive nutrition plan can be set up with the need of feeding tube to be placed within next 24 hours in a patient with supraglottic squamous cell carcinoma post tracheostomy Diagnoses Status post tracheostomy Z93.0 Airway compromise J98.8 Supraglottic mass J38.7 Smoking addiction F17.200
[2023-09-10] MEDS: nicotine 21 mg Patch 1 PATCH TRANSDERMA (20:21)
[2023-09-11] VITALS (26 sets, daily range): BP systolic 99–161; BP diastolic 60–93; PULSE 66–97; RESP 14–19; TEMP 36.4–36.9; O2SAT 92–100; BMI 20.1
[2023-09-11] MEDS: morphine 4 mg/mL SDV 1 mL 2 MG IVP ×7 (01:29→21:37)
[2023-09-11] MEDS: LORazepam 2 mg/mL INJ 10 mL MDV 0.5 MG IVP ×3 (02:29→20:41)
[2023-09-11] MEDS: famotidine 20 mg/2 mL INJ IVP (03:44)
[2023-09-11 05:03] LABS: Basophils # 0.1 10^3/uL (0.0-0.1); Basophils % 0.5 %; Eosinophils # 0.1 10^3/uL (0.0-0.8); Eosinophils % 1.5 %; Hematocrit 38.6 % (37-53); Lymphocytes # 1.8 10^3/uL (0.8-4.8); Lymphocytes % 18.2 %; Mean Corpuscular HGB Conc 33.2 g/dL (30-55); Mean Corpuscular Hemoglobin 29.6 pg (27-33); Mean Corpuscular Volume 89.1 fl (82-101); Mean Platelet Volume 9.3 fL (7.4-10.4); Monocytes # 0.8 10^3/uL (0.2-0.9); Monocytes % 7.9 %; Neutrophils # 6.89 10^3/uL (1.8-7.7); Neutrophils % 71.6 %; Nucleated Red Blood Cells % 0 %; Platelet Count 234 10^3/cmm (157-399); Red Blood Count 4.33 10^6/uL (3.85-5.65); Red Cell Distribution Width 12.3 % (12.1-15.1); White Blood Count 9.62 10^3/uL (3.29-11.43)
[2023-09-11 05:34] LABS: Magnesium 1.6 mg/dL (1.7-2.3)
[2023-09-11 05:37] LABS: Alanine Aminotransferase 9 U/L (0-41); Albumin Level 3.2 g/dL (3.5-5.2); Alkaline Phosphatase 85 U/L (40-130); Anion Gap 19.7 (5-19); Aspartate Amino Transferase 9 U/L (0-40); Blood Urea Nitrogen 16 mg/dL (8-23); Calcium 8.7 mg/dL (8.5-10.5); Carbon Dioxide 21 mmol/L (22-29); Chloride 101 mmol/L (98-107); Creatinine Clr Calc Pharmacy 89.9329; Globulin 3.1 g/dL (1.3-4.6); Glomerular Filtration Rate 113.9 mL/min (90-130); Glucose 84 mg/dL (65-115); Osmolality Calculated 286 mOsm/kg (285-295); Potassium 3.7 mmol/L (3.5-5.1); Sodium 138 mmol/L (136-145); Total Bilirubin 0.4 mg/dL (0.15-1.2); Total Protein 6.3 g/dL (6.6-8.7)
--- NOTE | 2023-09-11 06:28 | P.HPUD_ITS ---
Surgery/Procedure H&P Update DATE OF PROCEDURE: September 11, 2023 DATE H&P PERFORMED: 09/09/23 H&P UPDATE INFORMATION: I have reviewed H&P completed within last 30 days, I have examined patient prior to procedure, No changes to prior documentation and H&P is in [facility] [place] date indicated PREOP DIAGNOSIS: Supraglottic mass PLANNED PROCEDURE: Operation Date: 09/03/23 13:00 Proposed Procedures p Direct Laryngoscopy Direct Larynoscopy w/ Vocal Cord Biopsy(Not Applicable) - Yang Felipe MD Operation Date: 09/11/23 13:10 Proposed Procedures p Open Gastric Tube Insertion(Not Applicable) - Sudhakar Isaacs MD
--- NOTE | 2023-09-11 10:18 | PC.NUTR ---
If pt to remain NPO, provide 100% of nutrition needs via PEG following RD recs below: -Bolus regimen (237ml/8oz cans): Jevity 1.5 @ 2 cans -B, 1.5 cans -L, 2 cans -D (total: 5.5 cans/day) -150ml FWF q4 See most recent RD note for details
--- NOTE | 2023-09-11 13:27 | P.ANESASSM_ITS ---
Pre-Anesthetic Assessment Height/Weight: Height 1.65 m Weight 54.885 kg Temp Pulse Resp BP Pulse Ox O2 Del Method O2 Flow Rate 97.6 F 66 17 145/83 96 Room Air, Trach Collar 10 09/11/23 13:02 09/11/23 13:02 09/11/23 13:02 09/11/23 13:02 09/11/23 13:02 09/11/23 13:02 09/10/23 07:41 FiO2 28 09/07/23 12:00 Preop Diagnosis: Supraglottic mass Operation Date: 09/03/23 13:00 Proposed Procedures p Direct Laryngoscopy Direct Larynoscopy w/ Vocal Cord Biopsy(Not Applicable) - Yang Felipe MD Operation Date: 09/11/23 13:10 Proposed Procedures p Open Gastric Tube Insertion(Not Applicable) - Sudhakar Isaacs MD Was Beta Jaime taken within 24 hours: N/A Was Clonidine taken within 24 hours: N/A Last intake: Intake Last Liquid Date 09/10/23 Last Liquid Time 08:00 Last Solid Date 09/04/23 Last Solid Time 08:00 Social Alcohol and Tobacco Exam alert and oriented x 3 Coarse BS; Trach in place Pulmonary Chronic Obstructive Pulmonary Disease, Cough, Exertional Dyspnea and Shortness of Breath Anesthetic Plan ASA status: 4 Anesthesia: General Medications/Allergies Home Medications Medication Instructions Recorded Confirmed Last Taken Type aspirin 81 mg tablet,delayed 81 mg PO DAILY 07/21/19 09/02/23 08/12/23 History release Allergies Allergy/AdvReac Type Severity Reaction Status Date / Time Penicillins Allergy ALGY-Hives Verified 08/28/23 08:19 Current Medications Generic Name Dose Route Start Last Admin Trade Name Freq PRN Reason Stop Dose Admin Famotidine 20 mg 09/08/23 16:00 09/11/23 03:44 Famotidine 20 Mg/2 Ml Inj IVP 20 mg Q12H CINDY Administration Lactated Ringer's 1,000 mls @ 50 mls/hr 09/03/23 20:00 09/10/23 18:05 Lactated Ringers IV Infused .Q20H CINDY Infusion Lorazepam 0.5 mg 09/04/23 13:41 09/11/23 10:00 Lorazepam 2 Mg/Ml Inj 10 Ml Mdv IVP 0.5 mg Q6H PRN Administration ANXIETY Morphine Sulfate 2 mg 09/04/23 12:04 09/11/23 12:25 Morphine 4 Mg/Ml Sdv 1 Ml IVP 2 mg Q2H PRN Administration SEVERE PAIN Nicotine 1 patch 09/03/23 21:00 09/10/23 20:21 Nicotine 21 Mg Patch TRANSDERMA 1 patch Q24H CINDY Administration PFSH Anesthesia Medical History Broken wrist History of basal cell carcinoma (BCC) of skin On shoulder - 5-6 years ago Benign non-nodular prostatic hyperplasia with lower urinary tract symptoms Abnormal PSA Surgical History History of cataract surgery with lens implant Hx of appendectomy Family History Father , AT AGE 64 LUNG CANCER No problems noted. Social History Smoking and tobacco/nicotine status: current every day tobacco/nicotine user cigarettes Packs smoked per day: 1.5 Years cigarettes smoked: 50 Quit status (tobacco/nicotine): quit date established Planned quit date: 08/14/23 Second hand smoke exposure: No Alcohol intake: never Substance/Drug Use: current Substance/Drug use frequency: few times a week Adopted: No Caregiver/support person: No Lives independently: No Household members: spouse Marital status: service: No Current occupational status: employed Pets and animals: Yes Pets & animals: cat(s) and dog(s) Current gender identity: Male Special regino needs: No Data Anesthesia 09/11/23 04:55 09/11/23 04:55 Short CBC 09/10/23 09/11/23 Range/Units 05:00 04:55 WBC 8.84 9.62 (3.29-11.43) 10^3/uL Hgb 12.60 12.80 (11.27-16.99) g/dL Hct 38.5 38.6 (37-53) % MCV 89.3 89.1 (82-101) fl Plt Count 238 234 (157-399) 10^3/cmm Neut % (Auto) 66.2 71.6 % Neut # (Auto) 5.85 6.89 (1.8-7.7) 10^3/uL BMP 09/10/23 09/11/23 05:00 04:55 Sodium 140 138 Potassium 3.9 3.7 Chloride 102 101 Carbon Dioxide 23 21 L BUN 20 16 Creatinine 0.8 0.7 Glucose 81 84 Calcium 8.8 8.7 Liver Function 09/10/23 09/11/23 Range/Units 05:00 04:55 Total Bilirubin 0.4 0.4 (0.15-1.2) mg/dL AST 9 9 (0-40) U/L ALT 11 9 (0-41) U/L Alkaline Phosphatase 70 85 (40-130) U/L Albumin 3.1 L 3.2 L (3.5-5.2) g/dL Cardiac Studies: 2 No Data to Display
[2023-09-11] MEDS: sodium chloride 0.9% 1,000 ML 30 ML IV (14:00)
--- NOTE | 2023-09-11 14:25 | P.PN_ITS ---
Subjective 2 Subjective: Documents overnight. Has remained hemodynamically stable and afebrile. Plan for feeding tube to be placed today. Tolerated trach exchange well yesterday. Medications: Reviewed: Yes Vitals/I&O/Wt Last Vital Signs Temp 97.6 F 09/11/23 13:02 Pulse 66 09/11/23 13:02 Resp 17 09/11/23 13:02 BP 145/83 09/11/23 13:02 Pulse Ox 96 09/11/23 13:02 O2 Del Method Room Air, Trach Collar 09/11/23 13:02 O2 Flow Rate 10 09/10/23 07:41 FiO2 28 09/07/23 12:00 09/10/23 09/11/23 09/11/23 22:59 06:59 14:59 Intake Total 1000 / 1000 Output Total 200 / 600 200 / 800 400 / 400 Balance 800 / 400 -200 / 200 -400 / -400 Weight last 48 hrs Weight 54.885 kg Weight 54.913 kg Weight 55.083 kg Physical Exam 2 Narrative: No acute distress, able to communicate through writing on the pad Const: COMMON NORMALS: patient oriented x3 and alert GENERAL APPEARANCE: c ooperative ORIENTATION/CONSCIOUSNESS: Yes awake HENMT: COMMON NORMALS: oropharynx normal OTHER: Tracheostomy. No bleeding around the tracheostomy. Neck/C-Spine: COMMON NORMALS: no JVD Resp: COMMON NORMALS: normal respiratory effort and clear to auscultation bilaterally AUSCULTATION: clear to auscultation bilaterally Cardio: COMMON NORMALS: no JVD, regular rhythm, S1 normal heart sound present, S2 normal heart sound present and No murmurs present (Cardio) RHYTHM: regular rhythm HEART SOUNDS: S1 normal heart sound present and S2 normal heart sound present GI: COMMON NORMALS: Normal to inspection, nondistended, normoactive bowel sounds present, Soft to palpation and non-tender PALPATION: Yes Soft to palpation Extremity: COMMON NORMALS: no joint enlargement and no pedal edema Neuro: COMMON NORMALS: patient oriented x3 and moves all extremities S ENSORIUM/ORIENTATION: Yes alert Skin: COMMON NORMALS: no rashes or lesions noted GENERAL SKIN EXAM: no rashes or lesions noted Data 09/11/23 04:55 09/11/23 04:55 A&P Assessment and plan (1) Status post tracheostomy: Appreciate ENT recommendations. Plan for trach change at 7 days. Case management working on getting equipment as an outpatient. Not able to maintain oral intake. Having difficulty in swallowing. As per the patient he was having difficulty in swallowing even before the procedure but has gotten worse since tracheostomy. Appreciate modified barium swallow. Currently not safe to tolerate any kind of consistency safely. Discussed in detail with Dr. Felipe from ENT. As per the ENT postoperative edema would have resolved by now as patient received high-dose Decadron perioperatively. And as patient was having issues with swallowing even preoperatively his concerns of difficulty to swallow are most likely in the setting of tumor burden and patient would possibly need PEG tube placement. Continue IV morphine as needed for pain until able to tolerate oral medication. Ativan as needed for anxiety. Has been requiring IV medications due to not tolerating oral intake so far. Gentle IV hydration. Patient is more amenable to feeding tube or external nutrition now. Plan for gastrostomy tube surgically versus PEG tube placement. Dr. Rip Finley consulted by ENT team. Appreciate input. (2) Airway compromise: Trach care. (3) Supraglottic mass: Appreciate biopsy result with concern for malignancy. Plan for PET scan as an outpatient on 09/22 with radiation therapy and possible chemotherapy as per PET results (4) Smoking addiction: Encourage smoking cessation.Continue 21 mg patches. Patient and family would like to use his own patches which they brought in. Plan Replace magnesium. Full code N.p.o. SCDs for DVT prophylaxis Famotidine for PUD prophylaxis Plan for the day: Plan for feeding tube to be placed today. Will start on feeding as per surgical team 24 hours post feeding tube placement. Case management alerted. Appreciate dietary recommendations for bolus versus continuous feeds at home. Appreciate ENT recommendations. Has remained hemodynamically stable and afebrile. Attestations 2 Medical Necessity Statement*: Requires further hospitalization for feeding tube placement for definitive nutritional support in a patient with concerns for supraglottic mass secondary squamous cell carcinoma. Diagnoses Status post tracheostomy Z93.0 Airway compromise J98.8 Supraglottic mass J38.7 Smoking addiction F17.200
[2023-09-11] MEDS: clindamycin 600 MG/50 ML PREMIX 100 MG IV (14:47)
[2023-09-11] MEDS: BUPivacaine 0.5% INJ 10 mL INJECTION (15:14)
[2023-09-11] MEDS: lidocaine-epi 1% 20 mL INJ INJECTION (15:14)
--- NOTE | 2023-09-11 16:02 | XRR_ITS ---
PROCEDURE INFORMATION: Exam: XR Abdomen Exam date and time: 09/11/2023 4:46 PM Age: 63 years old Clinical indication: Device placement; Gi device; Other: Gt tube; Additional info: Gt tube verification, with contrast TECHNIQUE: Imaging protocol: Radiologic exam of the abdomen. Views: Frontal supine view of the abdomen. 1 View. COMPARISON: CR XR chest 2V* [id number] 03/12/2017 10:55 AM FINDINGS: Administered contrast opacifies the stomach confirming appropriate positioning. XR/XR abdomen 1V* [id number] IMPRESSION: As above.
--- NOTE | 2023-09-11 16:25 | PM.OP ---
Operative Report Date of procedure: September 11, 2023 Pre-op diagnosis: Right supraglottic mass Post-op diagnosis: Same Procedure done: Open this gastrostomy tube placement Surgeon: Sudahkar Isaacs MD [employer] Teacher: LINN OR Staff Estimated blood loss: 10 Brief History: 63-year-old male with a obstructing supraglottic mass who requires a gastrostomy tube for feeding, patient is unable to get a PEG tube due to the obstructive nature of the upper airway mass. After discussion of all risk benefits decided to proceed with an open gastrostomy. Procedure: Patient was brought into the OR, he was placed in a supine position. General anesthesia was given. The abdomen was prepped and draped in the usual sterile fashion, a timeout was conducted. I then proceeded to make 10 cm laparotomy incision on the epigastrium, the incision was carried down to the level of the fascia and the fascia was opened with electrocautery. Once the abdomen was accessed there was no evidence of visceral injury. I then proceeded to identify the stomach and I used a Upatoi to deliver the stomach through the wound. A pure string suture was placed in the anterior aspect of the stomach using a #3-0 silk. I then proceeded to select an area on the left upper quadrant of the liver 2. Once area was selected with electrocautery and make an incision on the left upper quadrant this incision was carried down bluntly until the peritoneum was reach. I then advanced Lisa catheter from inside the peritoneum to the skin and gently grabbed the 20 [place] gastrostomy tube and advanced it into the abdominal cavity. I then proceeded to made a gastrotomy with electrocautery, a clamp was used to verified intraluminal position and to ensure that we were not creating a submucosal tunnel. I then proceeded to advance the tube into the gastrostomy and I tightened the pursestring. The balloon of the gastric tube was inflated with 10 cc of sterile water. The catheter flushed freely. I then proceeded to do at 3 point fixation of the stomach to the anterior abdominal wall to ensure adequate apposition of the stomach, this was done with #3-0 silk. Once the counts were verified I proceeded to close the abdomen in layers using #1 PDS for the fascia, #3-0 Vicryl for the subcutaneous tissue and #4-0 Monocryl for the skin. The bumper of the catheter was opposed to the skin and was fakes with #2-0 silk. Dermabond was applied over the midline incision and a sterile dressing was applied over the catheter. At the end of the procedure all counts were correct, the patient was transferred to the PACU in stable condition to recover from anesthesia.
[2023-09-11] MEDS: lactated ringers 1,000 ML 50 ML IV (17:30)
[2023-09-12] VITALS (16 sets, daily range): BP systolic 96–135; BP diastolic 64–82; PULSE 66–82; RESP 16–22; TEMP 36.6–37; O2SAT 86–95
[2023-09-12] MEDS: morphine 4 mg/mL SDV 1 mL 2 MG IVP ×5 (00:03→08:51)
[2023-09-12] MEDS: famotidine 20 mg/2 mL INJ IVP ×2 (04:30→15:47)
[2023-09-12] MEDS: LORazepam 2 mg/mL INJ 10 mL MDV 0.5 MG IVP ×3 (04:44→16:52)
--- NOTE | 2023-09-12 07:46 | P.PN_ITS ---
Subjective 2 Subjective: 63-year-old male patient who has a right supraglottic invasive squamous cell carcinoma. He had it biopsied on 09/03/2023. Postoperatively he had stridor and airway compromise and therefore a tracheostomy was placed while still in the operating room. The patient has done well with the trach in place except that he has not been able to take oral nutrition and swallow appropriately due to the bulk of the tumor and edema that occurred from the surgery. In spite of steroids and time the patient still has requirement for the trach. The trach was changed over to a cuffless tube that is fenestrated with an inner cannula on September 09. Patient had an external approach to a G-tube placement by Dr. Isaacs yesterday. Has not yet started feedings. Vitals/I&O/Wt Last Vital Signs Temp 97.9 F 09/12/23 04:00 Pulse 66 09/12/23 04:00 Resp 17 09/12/23 06:50 BP 107/64 09/12/23 04:00 Pulse Ox 95 09/12/23 06:50 O2 Del Method Room Air, HAG, Trach Collar 09/11/23 19:49 O2 Flow Rate 2.5 09/11/23 17:35 FiO2 28 09/07/23 12:00 09/11/23 09/12/23 09/12/23 22:59 06:59 14:59 Intake Total 254.5 / 254.5 Output Total 310 / 710 300 / 1010 Balance -55.5 / -455.5 -300 / -755.5 Weight last 48 hrs Weight 128 lb 7 oz Weight 121 lb Weight 121 lb 1 oz Physical Exam 2 Narrative: Trach tube is checked. Proper tension around the neck with the Rj. Inner cannula removed and shows considerable crust. New inner cannula placed. Patient able to talk a little bit with plugging but not a significant difference with the inner cannula out. Trach site is without any sign of infection. 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 He has a trach in place for airway compromise following the biopsies. Trach is been changed over to a cuffless tube. The trach is fenestrated with an inner cannula. Patient had a G-tube placed from external approach yesterday. Has yet to be fed through that. (2) Status post tracheostomy: (3) Dysphagia: Qualifiers: Dysphagia type: pharyngeal phase Qualified Code(s): R13.13 - Dysphagia, pharyngeal phase Plan Plan: From an ENT standpoint the patient is stable and with supplies ordered and received he is cleared for discharge from my standpoint. Apparently at least 24 hours are necessary for G-tube feedings before he would be discharged. I will be out of town until Friday. Therefore if discharge is appropriate either hospitalist or Dr. Isaacs would have to take care of the actual discharge. Plan is in motion for the patient to be seen by radiation oncology and likely start radiation therapy. PET scan is currently ordered for September 22. Results of that may determine whether patient needs to have consideration for medical oncology intervention as well. I would see the patient back 1 month from now for routine cancer follow-up in the office. Attestations 2 Medical Necessity Statement*: Fresh G-tube by general surgery. Otherwise patient is stable from his tracheostomy and ready for discharge from an ENT standpoint. Apparently tube feedings need to be rendered for 24 hours before consideration of discharge. Coding Level of Care Code 42733 Diagnoses Primary squamous cell carcinoma of supraglottis C32.1 Status post tracheostomy Z93.0 Pharyngeal dysphagia R13.13 Dysphagia type: pharyngeal phase
--- NOTE | 2023-09-12 09:37 | P.PN_ITS ---
Subjective 2 Subjective: Patient is postoperative day 1 status post open gastrostomy creation for history of obstructing supraglottic mass. Patient has remained stable but complains of significant incisional pain, according to family member every time the patient coughs, he developed significant pain at the level of the abdomen. Vitals/I&O/Wt Last Vital Signs Temp 97.9 F 09/12/23 04:00 Pulse 66 09/12/23 08:00 Resp 22 H 09/12/23 08:51 BP 107/64 09/12/23 04:00 Pulse Ox 86 L 09/12/23 08:00 O2 Del Method Room Air, HAG, Trach Collar 09/12/23 08:00 O2 Flow Rate 6 09/12/23 08:00 FiO2 28 09/07/23 12:00 09/11/23 09/12/23 09/12/23 22:59 06:59 14:59 Intake Total 254.5 / 254.5 Output Total 310 / 710 300 / 1010 Balance -55.5 / -455.5 -300 / -755.5 Weight last 48 hrs Weight 128 lb 7 oz Weight 121 lb Weight 121 lb 1 oz Physical Exam 2 GI: OTHER: Abdominal examination is benign, surgical incision is covered with Dermabond, no evidence of bleeding or wound related complications, tube in the left upper quadrant is covered by dressing, no seda-incisional redness or any concerning findings. Data 09/11/23 04:55 09/11/23 04:55 A&P Assessment and plan (1) Dysphagia: Qualifiers: Dysphagia type: pharyngeal phase Qualified Code(s): R13.13 - Dysphagia, pharyngeal phase (2) Supraglottic mass: Plan Patient is showing a good progression after an open gastrostomy tube placement. Pain control is suboptimal, this is likely due to significant cough. We will increase pain medication and patient will receive Ativan as needed as he also appears to be very anxious. Tube feedings can be started today as guided by dietitian. Once tube feedings are at goal rate and patient pain is under control he can be cleared from the general surgery standpoint. All other management per primary team. Attestations 2 Medical Necessity Statement*: Per medical team Coding Level of Care Code Acute Code for [facility] Diagnoses Pharyngeal dysphagia R13.13 Dysphagia type: pharyngeal phase Supraglottic mass J38.7
[2023-09-12] MEDS: HYDROmorphone 1 mg/mL INJ 1 mL IVP (09:43)
[2023-09-12] MEDS: guaiFENesin-dextromethorphan UDC 10 mL PO ×2 (12:22→18:04)
--- NOTE | 2023-09-12 14:04 | P.PN_ITS ---
Subjective 2 Subjective: Documents overnight. Patient complaining of abdominal pain at the site of insertion of PEG tube with cough. Otherwise has remained hemodynamically stable. Slightly drowsy but able to have conversation and follow directions today as he just received IV Dilaudid. Vitals/I&O/Wt Last Vital Signs Temp 98.6 F 09/12/23 12:00 Pulse 74 09/12/23 12:00 Resp 18 09/12/23 12:00 BP 96/66 09/12/23 12:00 Pulse Ox 92 09/12/23 12:00 O2 Del Method Trach Collar 09/12/23 12:00 O2 Flow Rate 6 09/12/23 12:00 FiO2 28 09/07/23 12:00 09/11/23 09/12/23 09/12/23 22:59 06:59 14:59 Intake Total 254.5 / 254.5 Output Total 310 / 710 300 / 1010 475 / 475 Balance -55.5 / -455.5 -300 / -755.5 -475 / -475 Weight last 48 hrs Weight 58.258 kg Weight 54.885 kg Weight 54.913 kg Physical Exam 2 Narrative: No acute distress, able to communicate through writing on the pad Const: COMMON NORMALS: patient oriented x3 and alert GENERAL APPEARANCE: c ooperative ORIENTATION/CONSCIOUSNESS: Yes awake HENMT: COMMON NORMALS: oropharynx normal OTHER: Tracheostomy. No bleeding around the tracheostomy. Neck/C-Spine: COMMON NORMALS: no JVD Resp: COMMON NORMALS: normal respiratory effort and clear to auscultation bilaterally AUSCULTATION: clear to auscultation bilaterally Cardio: COMMON NORMALS: no JVD, regular rhythm, S1 normal heart sound present, S2 normal heart sound present and No murmurs present (Cardio) RHYTHM: regular rhythm HEART SOUNDS: S1 normal heart sound present and S2 normal heart sound present GI: COMMON NORMALS: Normal to inspection, nondistended, normoactive bowel sounds present, Soft to palpation and non-tender PALPATION: Yes Soft to palpation Extremity: COMMON NORMALS: no joint enlargement and no pedal edema Neuro: COMMON NORMALS: patient oriented x3 and moves all extremities S ENSORIUM/ORIENTATION: Yes alert Skin: COMMON NORMALS: no rashes or lesions noted GENERAL SKIN EXAM: no rashes or lesions noted Data 09/11/23 04:55 09/11/23 04:55 A&P Assessment and plan (1) Status post tracheostomy: Appreciate ENT recommendations. Plan for trach change at 7 days. Case management working on getting equipment as an outpatient. Not able to maintain oral intake. Having difficulty in swallowing. As per the patient he was having difficulty in swallowing even before the procedure but has gotten worse since tracheostomy. Appreciate modified barium swallow. Currently not safe to tolerate any kind of consistency safely. Discussed in detail with Dr. Felipe from ENT. As per the ENT postoperative edema would have resolved by now as patient received high-dose Decadron perioperatively. And as patient was having issues with swallowing even preoperatively his concerns of difficulty to swallow are most likely in the setting of tumor burden and patient would possibly need PEG tube placement. Continue IV morphine as needed for pain until able to tolerate oral medication. Ativan as needed for anxiety. Has been requiring IV medications due to not tolerating oral intake so far. Gentle IV hydration. Patient is more amenable to feeding tube or external nutrition now. Plan for gastrostomy tube surgically versus PEG tube placement. Dr. Rip Finley consulted by ENT team. Appreciate input. (2) Airway compromise: Trach care. (3) Supraglottic mass: Appreciate biopsy result with concern for malignancy. Plan for PET scan as an outpatient on 09/22 with radiation therapy and possible chemotherapy as per PET results (4) Smoking addiction: Encourage smoking cessation.Continue 21 mg patches. Patient and family would like to use his own patches which they brought in. Plan Replace magnesium. Full code N.p.o. SCDs for DVT prophylaxis Famotidine for PUD prophylaxis Plan for the day: Feeding tube placed yesterday. Complaining of pain at the site of feeding tube with cough. Start on cough suppressant with Tessalon Perles if possible through PEG tube feeds otherwise Robitussin DM Q8 scheduled followed by every 6 hourly as needed tomorrow. Dilaudid 0.5 every 6 hours as needed for pain. If needed will start patient on Young 5 mg every 6 as needed. Start on tube feeds. Will start at 10 cc/h going 10 cc Every 4 hours till goal is achieved. Free water flushes with 100 cc every 6 hours. Discussed in detail with patient's spouse at bedside. Advised her to learn to take care of trach and PEG tube. Attestations 2 Medical Necessity Statement*: Requires further hospitalization for management of feeding tube as tube feeds were started and uptitrated to reach goal while safe discharge planning is sought Diagnoses Status post tracheostomy Z93.0 Airway compromise J98.8 Supraglottic mass J38.7 Smoking addiction F17.200
[2023-09-12] MEDS: HYDROmorphone 1 mg/mL INJ 1 mL 0.5 MG IVP ×2 (15:47→23:54)
[2023-09-12] MEDS: HYDROcodone-acetaminophen 5-325 mg Tablet 1 TAB PO (18:04)
[2023-09-12] MEDS: oxyCODONE 5 mg IR Tab/Cap 10 MG PO (21:12)
[2023-09-13] VITALS (10 sets, daily range): BP systolic 123–143; BP diastolic 81–85; PULSE 65–83; RESP 16–22; TEMP 36.7–37.3; O2SAT 88–96
[2023-09-13] MEDS: guaiFENesin-dextromethorphan UDC 10 mL PO ×3 (01:51→18:17)
[2023-09-13] MEDS: LORazepam 2 mg/mL INJ 10 mL MDV 0.5 MG IVP (02:02)
[2023-09-13] MEDS: famotidine 20 mg/2 mL INJ IVP ×2 (04:43→16:59)
[2023-09-13] MEDS: oxyCODONE 5 mg IR Tab/Cap 10 MG PO ×2 (04:43→08:53)
--- NOTE | 2023-09-13 04:56 | XRR_ITS ---
PROCEDURE INFORMATION: Exam: XR Abdomen Exam date and time: 09/13/2023 5:12 AM Age: 63 years old Clinical indication: Abdominal pain; Prior surgery; Surgery date: Post-operative (0-2 days); Surgery type: Peg tube; Additional info: Abd pain. Post opt check. TECHNIQUE: Imaging protocol: Radiologic exam of the abdomen. Views: Frontal supine view of the abdomen. 1 View. COMPARISON: CR XR abdomen 1V* [id number] 09/11/2023 4:46 PM FINDINGS: Tubes, catheters and devices: A gastrostomy tube projects on the stomach. Gastrointestinal tract: Oral contrast is present in the colon. There is no significant bowel dilatation. No evidence of obstruction. Bones/joints: Unremarkable. XR/XR abdomen 1V* [id number] IMPRESSION: 1. Gastrostomy tube projects in satisfactory position. 2. No acute abnormality.
--- NOTE | 2023-09-13 06:25 | PC.NURSE ---
Tube feedings on hold per .
[2023-09-13] MEDS: HYDROmorphone 1 mg/mL INJ 1 mL 0.5 MG IVP (06:39)
[2023-09-13] MEDS: metoclopramide 5 mg/mL SDV 2 mL IVP ×2 (12:32→21:17)
[2023-09-13] MEDS: magnesium hydroxide 30 mL UDC PO (12:52)
--- NOTE | 2023-09-13 16:14 | P.PN_ITS ---
Subjective 2 Subjective: Overnight patient's PEG feeds per withheld because he was found to have no bowel movements in last 2 to 3 days. Abdominal x-ray was done which was not concerning for small bowel obstruction. Did not have increased residuals on tube feeds. Today morning examination patient comfortably sitting in bed. Denies any nausea or vomiting. Currently on trach collar. Medications: Reviewed: Yes Vitals/I&O/Wt Last Vital Signs Temp 98.0 F 09/13/23 15:49 Pulse 65 09/13/23 15:49 Resp 16 09/13/23 15:49 BP 124/82 09/13/23 15:49 Pulse Ox 92 09/13/23 15:49 O2 Del Method Trach Collar 09/13/23 15:49 O2 Flow Rate 6 09/12/23 20:00 FiO2 28 09/07/23 12:00 Weight last 48 hrs Weight 57.238 kg Weight 58.258 kg Physical Exam 2 Narrative: No acute distress, able to communicate through writing on the pad Const: COMMON NORMALS: patient oriented x3 and alert GENERAL APPEARANCE: c ooperative ORIENTATION/CONSCIOUSNESS: Yes awake HENMT: COMMON NORMALS: oropharynx normal OTHER: Tracheostomy. No bleeding around the tracheostomy. Neck/C-Spine: COMMON NORMALS: no JVD Resp: COMMON NORMALS: normal respiratory effort and clear to auscultation bilaterally AUSCULTATION: clear to auscultation bilaterally Cardio: COMMON NORMALS: no JVD, regular rhythm, S1 normal heart sound present, S2 normal heart sound present and No murmurs present (Cardio) RHYTHM: regular rhythm HEART SOUNDS: S1 normal heart sound present and S2 normal heart sound present GI: COMMON NORMALS: Normal to inspection, nondistended, normoactive bowel sounds present, Soft to palpation and non-tender PALPATION: Yes Soft to palpation Extremity: COMMON NORMALS: no joint enlargement and no pedal edema Neuro: COMMON NORMALS: patient oriented x3 and moves all extremities S ENSORIUM/ORIENTATION: Yes alert Skin: COMMON NORMALS: no rashes or lesions noted GENERAL SKIN EXAM: no rashes or lesions noted Data 09/11/23 04:55 09/11/23 04:55 A&P Assessment and plan (1) Status post tracheostomy: Appreciate ENT recommendations. Plan for trach change at 7 days. Case management working on getting equipment as an outpatient. Not able to maintain oral intake. Having difficulty in swallowing. As per the patient he was having difficulty in swallowing even before the procedure but has gotten worse since tracheostomy. Appreciate modified barium swallow. Currently not safe to tolerate any kind of consistency safely. Discussed in detail with Dr. Felipe from ENT. As per the ENT postoperative edema would have resolved by now as patient received high-dose Decadron perioperatively. And as patient was having issues with swallowing even preoperatively his concerns of difficulty to swallow are most likely in the setting of tumor burden and patient would possibly need PEG tube placement. Continue IV morphine as needed for pain until able to tolerate oral medication. Ativan as needed for anxiety. Has been requiring IV medications due to not tolerating oral intake so far. Gentle IV hydration. Patient is more amenable to feeding tube or external nutrition now. Plan for gastrostomy tube surgically versus PEG tube placement. Dr. Rip Finley consulted by ENT team. Appreciate input. (2) Airway compromise: Trach care. (3) Supraglottic mass: Appreciate biopsy result with concern for malignancy. Plan for PET scan as an outpatient on 09/22 with radiation therapy and possible chemotherapy as per PET results (4) Smoking addiction: Encourage smoking cessation.Continue 21 mg patches. Patient and family would like to use his own patches which they brought in. Plan Replace magnesium. Full code Tube feeds at goal of 55 cc/h. SCDs for DVT prophylaxis Famotidine for PUD prophylaxis Plan for the day: Patient was able to tolerate tube feeds. Without any residuals. There was concern for no bowel movements for which abdominal x-ray was done which ruled out small bowel obstruction. High concerns for decreased bowel movements because of poor oral intake and hide pain medication intake. Restart tube feeds. Start patient on milk of magnesia and senna Colace along with IV Reglan. Hold tube feeds only if residuals are in more than 55 cc/h for concerns for aspiration. Discontinue IV pain medications. Stop IV fluids. Electrolytes stable. Discharge plan: Plan to discharge back home within next 24 hours if patient continues to tolerate tube feeds with concerns for no bowel movements Attestations 2 Medical Necessity Statement*: Requires further hospitalization while new tube feedings are adjusted in a patient who was admitted post tracheostomy for subglottic mass biopsy. Diagnoses Status post tracheostomy Z93.0 Airway compromise J98.8 Supraglottic mass J38.7 Smoking addiction F17.200
[2023-09-13] MEDS: oxyCODONE 5 mg IR Tab/Cap PO (16:59)
[2023-09-13] MEDS: sennosides-docusate Tablet 1 TAB PO (18:17)
[2023-09-13] MEDS: trazodone 50 mg Tablet PO (21:43)
[2023-09-14] VITALS (9 sets, daily range): BP systolic 107–127; BP diastolic 68–85; PULSE 63–73; RESP 16–18; TEMP 36.8–37.7; O2SAT 87–96
[2023-09-14] MEDS: oxyCODONE 5 mg IR Tab/Cap PO ×3 (01:28→10:26)
[2023-09-14] MEDS: guaiFENesin-dextromethorphan UDC 10 mL PO ×2 (01:32→10:26)
[2023-09-14] MEDS: metoclopramide 5 mg/mL SDV 2 mL IVP (03:30)
[2023-09-14] MEDS: famotidine 20 mg/2 mL INJ IVP (03:31)
[2023-09-14] MEDS: ketorolac 30 mg/mL INJ 15 MG IVP ×2 (03:48→10:04)
--- NOTE | 2023-09-14 10:29 | PM.PN ---
Subjective Subjective: Patient is postoperative day 3 status post open gastrostomy tube placement for obstructing supraglottic mass. Patient doing very well, pain is much better controlled, has been tolerating tube feeds without any issues. Vitals/I&O/Wt Last Vital Signs Temp 98.4 F 09/14/23 08:00 Pulse 63 09/14/23 08:00 Resp 18 09/14/23 10:26 BP 124/81 09/14/23 08:00 Pulse Ox 96 09/14/23 08:00 O2 Del Method Room Air 09/14/23 08:00 O2 Flow Rate 6 09/12/23 20:00 FiO2 28 09/07/23 12:00 09/13/23 09/14/23 09/14/23 22:59 06:59 14:59 Intake Total 0 / 0 0 / 0 Output Total 0 / 0 Balance 0 / 0 0 / 0 Weight last 48 hrs Weight 129 lb 3.2 oz Weight 126 lb 3 oz Physical Exam GI: OTHER: Abdominal exam is benign, surgical incisions covered with Dermabond and healing well. Gastric tube place is healing well, no evidence of erythema no leakage around the tube. Data 09/11/23 04:55 09/11/23 04:55 A&P Assessment and plan (1) Supraglottic mass: Plan Excellent progression after open gastrostomy tube placement. Wound healing is going as expected. Patient has an abdominal binder for comfort, according to the patient he would like to give the binder as long as possible as it helps when he coughs. I agree with this I explained to him that He can keep the binder as long as he wishes but he needs to be careful as the upper part of the binder can rubbing to the skin and cause irritation. Patient is cleared from the general surgery standpoint. He can follow-up with me in 2 weeks in the clinic for postoperative evaluation. Attestations Medical Necessity Statement*: Per medical team Coding Level of Care Code Acute Code for [facility] Fwd Diagnoses Supraglottic mass J38.7
--- NOTE | 2023-09-14 13:11 | PM.DCS ---
Discharge Providers Date of Admission: 09/03/23 17:51 Date of Discharge: September 14, 2023 Attending Provider at Admission: Yang Felipe MD Attending Provider at Discharge: Martinez Fernandes MD Consults: ENT: Dr. Felipe Surgery: Dr. Rip Finley Primary Care Provider: Laine Berrios DO Diagnoses at Discharge Discharge Diagnosis (1) Supraglottic mass: Status: Acute Reason for Visit Reason for Visit: J38.7 Brief History: History as per HPI: 63-year-old gentleman with right supraglottic mass with intermittent abscess, pain, odynophagia, biopsy, after extubation with significant stridor, supraglottic and epiglottic edema underwent controlled but emergent tracheostomy. Subsequently admitted to ICU, hospitalist asked for admission due to better familiarity with EMR. Patient communicates by writing. He is doing okay after surgery. He otherwise has been at baseline state of health. As per discussion with his in the waiting room he has had quite bit of secretions, some hemoptysis, dysphagia, or odynophagia to hospitalization. Has stayed on clear liquid diet. Hospital Course Hospital Course Patient was admitted to the hospital further evaluation and management. She was continued on tracheostomy and oxygen supplementation was slightly decreased regularly. Tracheostomy was changed as per ENT. Patient continued to have concerns with aspiration and difficulty in swallowing for which speech therapy was involved and modified barium swallow was done after which it was determined that patient is not safe to swallow given the subglottic mass with high risk of aspiration. Surgery was consulted and he underwent open gastrostomy tube placement. 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 Patient has been started on tube feeding which has been tolerating well for last 48 hours. His pain is well-controlled in the last 24 hours. He has been discharged in hemodynamically stable condition advised to follow-up with the ENT as an outpatient in the next 1 week, PCP within next 1 week. He is to follow-up with oncology as an outpatient as well. Physical Exam Narrative: No acute distress, able to communicate through writing on the pad Const: COMMON NORMALS: patient oriented x3 and alert GENERAL APPEARANCE: cooperative ORIENTATION/CONSCIOUSNESS: Yes awake HENMT: COMMON NORMALS: oropharynx normal OTHER: Tracheostomy. No bleeding around the tracheostomy. Neck/C-Spine: COMMON NORMALS: no JVD Resp: COMMON NORMALS: normal respiratory effort and clear to auscultation bilaterally AUSCULTATION: clear to auscultation bilaterally Cardio: COMMON NORMALS: no JVD, regular rhythm, S1 normal heart sound present, S2 normal heart sound present and No murmurs present (Cardio) RHYTHM: regular rhythm HEART SOUNDS: S1 normal heart sound present and S2 normal heart sound present GI: COMMON NORMALS: Normal to inspection, nondistended, normoactive bowel sounds present, Soft to palpation and non-tender PALPATION: Yes Soft to palpation Extremity: COMMON NORMALS: no joint enlargement and no pedal edema Neuro: COMMON NORMALS: patient oriented x3 and moves all extremities SENSORIUM/ORIENTATION: Yes alert Skin: COMMON NORMALS: no rashes or lesions noted GENERAL SKIN EXAM: no rashes or lesions noted Discharge Data Studies Completed and Pending Completed Studies During Hospitalization Category Date Time Status FL barium swallow modifd 90073 Routine Exams 09/08/23 08:00 Completed XR abdomen 1V* [id number] Routine Exams 09/11/23 16:02 Completed XR abdomen 1V* [id number] Stat Exams 09/13/23 04:56 Completed Pathology: Surgical [PTH] Routine Pth 09/03/23 14:19 Completed Radiology Impressions Abdomen X-Ray 09/13/23 04:56 IMPRESSION: 1. Gastrostomy tube projects in satisfactory position. 2. No acute abnormality. Laboratory Results WBC 9.62 10^3/uL (3.29-11.43) 09/11/23 04:55 RBC 4.33 10^6/uL (3.85-5.65) 09/11/23 04:55 Hgb 12.80 g/dL (11.27-16.99) 09/11/23 04:55 Hct 38.6 % (37-53) 09/11/23 04:55 MCV 89.1 fl (82-101) 09/11/23 04:55 MCH 29.6 pg (27-33) 09/11/23 04:55 MCHC 33.2 g/dL (30-55) 09/11/23 04:55 RDW 12.3 % (12.1-15.1) 09/11/23 04:55 Plt Count 234 10^3/cmm (157-399) 09/11/23 04:55 MPV 9.3 fL (7.4-10.4) 09/11/23 04:55 Neut % (Auto) 71.6 % 09/11/23 04:55 Lymph % (Auto) 18.2 % 09/11/23 04:55 Waller % (Auto) 7.9 % 09/11/23 04:55 Eos % (Auto) 1.5 % 09/11/23 04:55 Baso % (Auto) 0.5 % 09/11/23 04:55 Neut # (Auto) 6.89 10^3/uL (1.8-7.7) 09/11/23 04:55 Lymph # (Auto) 1.8 10^3/uL (0.8-4.8) 09/11/23 04:55 Waller # (Auto) 0.8 10^3/uL (0.2-0.9) 09/11/23 04:55 Eos # (Auto) 0.1 10^3/uL (0.0-0.8) 09/11/23 04:55 Baso # (Auto) 0.1 10^3/uL (0.0-0.1) 09/11/23 04:55 Nucleated RBC % (auto) 0 % 09/11/23 04:55 Nucleated RBCs # 0.0 /100WBC 09/11/23 04:55 Sodium 138 mmol/L (136-145) 09/11/23 04:55 Potassium 3.7 mmol/L (3.5-5.1) 09/11/23 04:55 Chloride 101 mmol/L (98-107) 09/11/23 04:55 Carbon Dioxide 21 mmol/L (22-29) L 09/11/23 04:55 Anion Gap 19.7 (5-19) H 09/11/23 04:55 BUN 16 mg/dL (8-23) 09/11/23 04:55 Creatinine 0.7 mg/dL (0.7-1.2) 09/11/23 04:55 GFR Calculation 113.9 mL/min (90-130) 09/11/23 04:55 Glucose 84 mg/dL (65-115) 09/11/23 04:55 Estimat Average Glucose 105 09/09/23 05:24 Hemoglobin A1c 5.3 % (4.0-6.0) 09/09/23 05:24 Calculated Osmolality 286 mOsm/kg (285-295) 09/11/23 04:55 Calcium 8.7 mg/dL (8.5-10.5) 09/11/23 04:55 Magnesium 1.6 mg/dL (1.7-2.3) L 09/11/23 04:55 Iron 24 ug/dL (59-158) L 09/08/23 05:06 TIBC 182 mcg/dl 09/08/23 05:06 % Saturation 13.1 % (20-50) L 09/08/23 05:06 Unsat Iron Binding 158 ug/dL (112-347) 09/08/23 05:06 Total Bilirubin 0.4 mg/dL (0.15-1.2) 09/11/23 04:55 AST 9 U/L (0-40) 09/11/23 04:55 ALT 9 U/L (0-41) 09/11/23 04:55 Alkaline Phosphatase 85 U/L (40-130) 09/11/23 04:55 Total Protein 6.3 g/dL (6.6-8.7) L 09/11/23 04:55 Albumin 3.2 g/dL (3.5-5.2) L 09/11/23 04:55 Globulin 3.1 g/dL (1.3-4.6) 09/11/23 04:55 Triglycerides 125 mg/dL (0-150) 09/09/23 05:24 Cholesterol 139 mg/dL (0-200) 09/09/23 05:24 LDL Cholesterol, Calc 82 mg/dL (50-129) 09/09/23 05:24 Total VLDL Cholesterol 25 mg/dL (0-30) 09/09/23 05:24 HDL Cholesterol 32 mg/dL (60-100) L 09/09/23 05:24 Cholesterol/HDL Ratio 4.34 mg/dL (1.0-5.00) 09/09/23 05:24 Vitamin B12 1680 pg/mL (232-1245) H 09/08/23 05:06 Folate 6.0 ng/mL (4.5-32.2) 09/09/23 05:24 TSH 1.41 uIU/mL (0.27-4.20) 09/08/23 05:06 Vitals Last Vital Signs Temp 98.2 F 09/14/23 12:00 Pulse 64 09/14/23 12:00 Resp 18 09/14/23 12:00 BP 119/85 09/14/23 12:00 Pulse Ox 87 L 09/14/23 12:30 O2 Del Method Room Air 09/14/23 12:00 O2 Flow Rate 2 09/14/23 12:30 FiO2 28 09/07/23 12:00 Discharge Plan Discharge Patient Disposition: Home Condition: Stable Prescriptions: New oxycodone 5 mg Tablet 5 mg PO Q4H PRN (Reason: Severe Pain) Qty: 15 0RF dextromethorphan-guaifenesin 10-100 mg/5 mL Syrup 10 ml PO Q8H 7 Days Qty: 210 0RF sennosides-docusate sodium [Stool Softener-Laxative] 8.6-50 mg Tablet 1 tab PO BID Qty: 10 0RF Continued aspirin 81 mg tablet,delayed release (DR/EC) 81 mg PO DAILY Discharge Orders: Discharge Order (Routine); Ordered 09/14/23 Ordered By: Martinez Fernandes Other Ambulatory Orders: DME: Enteral Nutrition (Order) Location: None Selected Ordered By: Martinez Fernandes DME: Miscellaneous (Order) Location: None Selected Ordered By: Luis Viera DME: Miscellaneous (Order) Location: None Selected Ordered By: Luis Viera DME: Miscellaneous (Order) Location: None Selected Ordered By: Luis Viera DME: Miscellaneous (Order) Location: None Selected Ordered By: Yang Felipe DME: Miscellaneous (Order) Location: None Selected Ordered By: Luis Viera DME: Miscellaneous (Order) Location: None Selected Ordered By: Luis Viera DME: Miscellaneous (Order) Location: None Selected Ordered By: Luis Viera DME: Oxygen (Order) Location: None Selected Ordered By: Martinez Fernandes Referrals: Curry Saunders MD [Hospitalist] - 09/15/23 11:00 am Patient Instructions: Tracheostomy Care (GEN), Opioid Safety Activity Restrictions/Additional Instructions: Continue with trach care and PEG tube feeds have discussed in detail. Follow-up with a primary care provider within next 1 week and with oncology team as directed. Discharge Attestations Time Spent in Discharge Care*: greater than 30 min Specific Discharge Activities: educating patient, educating and/or supporting family/caregiver, discussing with pcp/other providers, discussing with hospice case manager/social workers/dc planners, documenting/other paperwork and evaluating patient/reviewing data Status at Discharge: Cognitive status at discharge: cognitively intact, Behavioral status at discharge: cooperative, Functional status at discharge: independent ambulation, Overall status at discharge: patient has a new baseline Quality Metrics Clinical Quality Measures [ No reported AMI, CVA or VTE this stay] Coding Level of Care Code 11543 Total time (in minutes) for Discharge: 60 Diagnoses Supraglottic mass J38.7
--- NOTE | 2023-09-14 13:30 | PC.NURSE ---
Patient requires oxygen. Attempted to fax all paperwork to [employer] however they are closed and i am unable to obtain the fax number. The phone number is [phone]. Patient has been on room air all day day and does not to wait for his oxygen. Patient and states, I don't think he will need it. If so we will come back. Ambulated patient around the nurses station. Patient is 95% on room air.
== END 2023-09-14 14:08 | disposition home or self-care (01) | DRG 13 ==
LOC: ICU 17:52 → MEDSURG 09-07 21:03
PROVIDERS: Internal Medicine; Surgery; Admitting Provider Otolaryngology; PCP Family Medicine; Visit Provider Student in an Organized Health Care Education/Training Program
PROC: 0CJS8ZZ Inspection of Larynx, Via Natural or Artificial Opening Endoscopic (ICD-10-PCS; principal; 2023-09-03 12:50)
PROC: 0CBS8ZX Excision of Larynx, Via Natural or Artificial Opening Endoscopic, Diagnostic (ICD-10-PCS; 2023-09-03 12:50)
PROC: 0DH60UZ Insertion of Feeding Device into Stomach, Open Approach (ICD-10-PCS; principal; 2023-09-11 13:00)
DX: C32.1 Malignant neoplasm of supraglottis (principal); F17.210 Nicotine dependence, cigarettes, uncomplicated; J98.8 Other specified respiratory disorders; R06.1 Stridor; Z85.828 Personal history of other malignant neoplasm of skin; N40.0 Benign prostatic hyperplasia without lower urinary tract symptoms; R13.13 Dysphagia, pharyngeal phase; T17.908A Unspecified foreign body in respiratory tract, part unspecified causing other injury, initial encounter; E83.42 Hypomagnesemia
CPT/HCPCS: 36415; 74018; 74230; 80048; 80053; 80061; 82607; 82746; 83036; 83540; 83550; 83735; 84443; 85025; 88305; 92523; 92526; 92610; 92611; 94760; 94799; 96374; 96376; J0171; J0330; J1100; J1170; J1885; J1956; J2060; J2250; J2270; J2405; J2704; J2710; J2765; J3010; J3475; J3490; J7030; J7120

== ENCOUNTER 2023-09-23 09:16 | Outpatient (CLI) | payer OTHER, SELFPAY ==
--- NOTE | 2023-09-23 09:30 | PETR_ITS ---
PROCEDURE INFORMATION: Exam: PET/CT Skull Base to Mid-thigh Exam date and time: 09/23/2023 10:40 AM Age: 63 years old Clinical indication: Abnormal findings; Supraglottic mass LABS AND CLINICAL REPORTS: Glucose: 111 mg/dl Treatment strategy for malignancy (PET staging): Initial Staging (PI) TECHNIQUE: Imaging protocol: Following at least four-hour fasting and following the injection of radiopharmaceutical, low dose CT images were obtained. Then, PET images were obtained. Attenuation corrected images were constructed using the CT scan. Fused images of PET and CT were reviewed. The standardized uptake values (SUV) reported below are maximum values within a region of interest, expressed in gm/ml. Exam includes orbital meatal line to mid-thigh. Radiopharmaceutical: 11.38 mCi F-18 FDG (Fluorodeoxyglucose), IV. Time of imaging post radiopharmaceutical administration: 1 hour Injection site: Left antecubital vein COMPARISON: CT neck w con* [id number] 08/13/2023 5:20 PM FINDINGS: Tubes, catheters and devices: Catheters, tubes and devices: Tracheostomy and percutaneous gastrostomy tube is in place. Brain: Visualized brain has normal physiologic uptake. Pharynx: Normal physiologic uptake. Larynx: The supraglottic tumor noted as about 3.9 x 2.2 cm mass anteriorly to the epiglottis extending toward the right piriform sinus with the highest uptake of 6.7 SUV. Increased linear uptake of 3.6 SUV noted along both sides of tracheostomy reflecting benign inflammatory finding. Lungs, pleura and trachea: No abnormal uptake. Moderate centrilobular emphysema and paraseptal emphysema in the upper lobes. No lung nodules or masses. No pleural effusion. Heart: Normal physiologic uptake. There is no cardiomegaly. Mild coronary artery calcification is present. There is no pericardial effusion. Mediastinal space: No abnormal uptake. Liver: No abnormal uptake. Gallbladder and bile ducts: No abnormal uptake. No calcified gallstones. Pancreas: No abnormal uptake. Spleen: No abnormal uptake. No splenomegaly. Adrenal glands: No abnormal uptake. No nodules. Kidneys and ureters: Normal physiologic uptake. No hydronephrosis. A couple of simple cysts in the left kidney measuring up to 2.6 cm. Stomach and bowel: Small focus of increased uptake of 4 SUV in the left lower quadrant probably located within the sigmoid colon. There is diverticulosis of the sigmoid colon with no CT signs of acute diverticulitis. Linear segment of increased uptake in the cecum and ascending colon is likely benign. Vasculature: No abnormal uptake. No aortic aneurysm. Lymph nodes: 1.3 cm rounded hypodense left level 2 lymph node on axial image 32 measures 2.1 SUV containing significant cystic component as was noted on prior contrast enhanced CT neck. There are 2 lymph nodes in the right neck including 1.3 x 0.9 cm node at level 2 on axial image 30 with uptake of 2.8 SUV, and 1.1 x 0.9 cm node at level 3 on axial image 32 with low-grade uptake of 1.8 SUV. No FDG avid lymphadenopathy in the chest, abdomen, pelvis, and extremities. Bones/joints: No abnormal uptake in the visualized axial and appendicular skeleton. Soft tissues: Bilateral uptake within the anterior scalene muscle more intense on the left side likely represents benign finding. PET/PET skulltothi INITIAL [id number] IMPRESSION: The primary supraglottic tumor is FDG avid with the highest uptake of 6.7 SUV. Bilateral level 2 lymph nodes in the neck and right level 3 node concerning for metastatic lymphadenopathy demonstrate low grade uptake up to 2.8 SUV possibly due to cystic changes. No FDG avid finding outside of the neck concerning for distant metastatic disease. Nonspecific focus of increased uptake in the sigmoid colon for correlation with colonoscopy to exclude focal mass.
== END 2023-09-23 09:17 | disposition home or self-care (01) ==
PROVIDERS: PCP Family Medicine; Visit Provider Otolaryngology
DX: J38.7 Other diseases of larynx (principal)
CPT/HCPCS: 78815; A9552

== ENCOUNTER 2023-10-09 07:45 | Oncology outpatient (recurring) (ONCR) | payer OTHER, SELFPAY ==
[2023-09-16 17:00] LABS: Basophils # 0.1 10^3/uL (0.0-0.1); Basophils % 0.9 %; Eosinophils # 0.2 10^3/uL (0.0-0.8); Eosinophils % 2.1 %; Hematocrit 39.7 % (37-53); Lymphocytes # 2.3 10^3/uL (0.8-4.8); Lymphocytes % 26.7 %; Mean Corpuscular HGB Conc 32.7 g/dL (30-55); Mean Corpuscular Volume 88.6 fl (82-101); Mean Platelet Volume 9.3 fL (7.4-10.4); Monocytes # 0.8 10^3/uL (0.2-0.9); Monocytes % 9.5 %; Neutrophils # 5.16 10^3/uL (1.8-7.7); Neutrophils % 60.6 %; Nucleated Red Blood Cells % 0 %; Platelet Count 377 10^3/cmm (157-399); Red Blood Count 4.48 10^6/uL (3.85-5.65); Red Cell Distribution Width 12.7 % (12.1-15.1); White Blood Count 8.53 10^3/uL (3.29-11.43)
[2023-09-16 17:27] LABS: Alanine Aminotransferase 18 U/L (0-41); Albumin Level 3.7 g/dL (3.5-5.2); Alkaline Phosphatase 75 U/L (40-130); Aspartate Amino Transferase 16 U/L (0-40); Blood Urea Nitrogen 31 mg/dL (8-23); Calcium 9.1 mg/dL (8.5-10.5); Carbon Dioxide 30 mmol/L (22-29); Chloride 101 mmol/L (98-107); Creatinine Clr Calc Pharmacy 77.7668; Globulin 3.4 g/dL (1.3-4.6); Glomerular Filtration Rate 97.6 mL/min (90-130); Glucose 185 mg/dL (65-115); Osmolality Calculated 305 mOsm/kg (285-295); Sodium 142 mmol/L (136-145); Thyroid Stimulating Hormone 2.77 uIU/mL (0.27-4.20); Total Bilirubin 0.3 mg/dL (0.15-1.2); Total Protein 7.1 g/dL (6.6-8.7)
--- NOTE | 2023-09-18 09:21 | N.ONRAD NP_ITS ---
Radiation Oncology New Patient Visit Patient: Gilson Rajan MR#: [id number] : 1960> Age: 63> Sex: Male> Dictated by: Curry Saunders Date of Service: 09/17/2023 Referring Physician(s) : Dr. 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 He had urgent Trach placed and operative gastrostomy tube placed at that time. Here to address definitive radiation with chemotherapy. Radiotherapy to date: Summary > No prior radiation therapy. Chief Complaint / History of Present Illness: In June he lost ability to sing and by July he became increasingly hoarse. He had modest throat pain and swallowing difficulty with weight loss from 145 to 150 down to [address] Felipe who noted a supraglottic mass. CT 08/13/2023 Bulky 4 cm multilobulated brightly enhancing right supraglottic mass obliterating the piriform sinus and distorting and narrowing the supraglottic airway extending to or even involving the right true vocal cord. Bilateral ring enhancing small level 2 and 3 cervical adenopathy. Exam under anesthesia and biopsy 09/03/2023 revealed right supraglotic mass extending to just above true vocal cords. Biopsy revealed moderately to poorly differentiated squamous cell carcinoma. HPV p16 negative. He had airway compromise and had trach placed at time of biopsy. PEG tube placement not feasible due to obstruction of primary tumor and had open gastrostomy placed on 09/11/2023 during the same hospitalization. Seen by med onc with port placement to be scheduled. PET/CT scheduled for 09/23/2023. Edentulous with dentures in. Smoked 1 to 2 ppd from age 14 to 63 quit at time of diagnosis. Distant alcohol use. Still having some abdominal discomfort since surgery. Not sleeping well. Current Medications: dextromethorphan-guaifenesin 10-100 mg/5 mL 10 mL PO Q8H 1 week, oxycodone 5 mg PO Q4H PRN, sennosides-docusate sodium 8.6-50 mg (Stool Softener-Laxative) 1 tab PO BID Allergies: Penicillins Allergy (Verified 09/16/23 16:15) ALGY-Hives Medical History: No previous radiation therapy. Broken wrist, History of basal cell carcinoma (BCC) of skin On shoulder - 5-6 years ago, Benign non-nodular prostatic hyperplasia with lower urinary tract symptoms-Abnormal PSA Social History: for 3rd time. 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 Vital Signs: Performed on 09/17/2023 1:32 PM BMI - 19.237 kg/m2, Height - 65 in, Weight - 115.6 lbs, Temperature - 97.9 f, Pulse - 59 /min (low), Respiration - 16 /min, O2 Sat - 97 %, Pain - 0, Fatigue - 0 and BP - 122/ 70 mm(hg). Physical Exam: Elderly appearing for age. Edentulous with dentures in. Voice ok with trach plugged. Small 2cm bilateral cervical adenopathy. G tube in with healed midline abd incision. Mild tenderness around g tube. No extremity clubbing or edema. 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 PET/CT appropriate for completion of staging. Recommend 70 Gy of IMRT based treatment with concurrent chemotherapy. Discussed in detail with patient and spouse. Rx script of Trsimon at his request. Signed by: 09/18/2023 9:20:22 AM <<Signature on File>> Time spent with patient: CPT Code: CPT Code:
[2023-10-02 08:03] VITALS: BMI 18.6
[2023-10-02 08:07] LABS: Basophils # 0.1 10^3/uL (0.0-0.1); Basophils % 0.7 %; Eosinophils # 0.1 10^3/uL (0.0-0.8); Eosinophils % 0.8 %; Hematocrit 43.4 % (37-53); Lymphocytes # 1.5 10^3/uL (0.8-4.8); Lymphocytes % 19.8 %; Mean Corpuscular HGB Conc 30.9 g/dL (30-55); Mean Corpuscular Hemoglobin 29.1 pg (27-33); Mean Corpuscular Volume 94.1 fl (82-101); Mean Platelet Volume 11.3 fL (7.4-10.4); Monocytes # 0.4 10^3/uL (0.2-0.9); Monocytes % 4.9 %; Neutrophils # 5.53 10^3/uL (1.8-7.7); Neutrophils % 73.5 %; Nucleated Red Blood Cells % 0 %; Platelet Count 190 10^3/cmm (157-399); Red Blood Count 4.61 10^6/uL (3.85-5.65); Red Cell Distribution Width 13.5 % (12.1-15.1); White Blood Count 7.52 10^3/uL (3.29-11.43)
[2023-10-02 08:15] VITALS: BP 127/75; PULSE 59; RESP 18; TEMP 36.7; O2SAT 99
[2023-10-02 08:31] LABS: Alanine Aminotransferase 19 U/L (0-41); Alkaline Phosphatase 92 U/L (40-130); Anion Gap 13.5 (5-19); Aspartate Amino Transferase 11 U/L (0-40); Blood Urea Nitrogen 32 mg/dL (8-23); Calcium 9.4 mg/dL (8.5-10.5); Carbon Dioxide 31 mmol/L (22-29); Chloride 108 mmol/L (98-107); Creatinine Clr Calc Pharmacy 54.3299; Globulin 3.1 g/dL (1.3-4.6); Glomerular Filtration Rate 75.5 mL/min (90-130); Glucose 116 mg/dL (65-115); Osmolality Calculated 314 mOsm/kg (285-295); Potassium 4.5 mmol/L (3.5-5.1); Sodium 148 mmol/L (136-145); Total Bilirubin 0.4 mg/dL (0.15-1.2); Total Protein 7.1 g/dL (6.6-8.7)
[2023-10-02] MEDS: sodium chlor 0.9% + KCl 20 mEq 20 MEQ/1,000 ML BAG 1000 MEQ IV (10:49)
[2023-10-02] MEDS: magnesium sulfate premix 2 GM/50 ML PIGGYBACK IV (10:51)
[2023-10-02] MEDS: sodium chloride 0.9% 250 ML 50 ML IV (13:00)
[2023-10-02] MEDS: diphenhydrAMINE 50 mg/mL SDV 1mL 25 MG IVP (13:01)
[2023-10-02] MEDS: famotidine 20 mg/2 mL INJ IVP (13:03)
[2023-10-02] MEDS: palonosetron 0.25 mg/5 mL SDV IVP (13:09)
[2023-10-02] MEDS: fosaprepitant 150 MG in sodium chloride 0.9% 150 ML 300 MG IV (13:12)
[2023-10-02] MEDS: CISPLATIN IV (14:20)
[2023-10-02] MEDS: SODIUM CHLORIDE 0.9% IV (14:20)
[2023-10-02] MEDS: FUROsemide 10 mg/mL SDV 2mL 20 MG IVP (15:33)
[2023-10-02] MEDS: potassium chloride 20 MEQ in sodium chloride 0.9% 500 ML 375 MEQ IV (15:38)
[2023-10-02 17:29] VITALS: BP 120/80; PULSE 57; RESP 18; TEMP 35.7; O2SAT 100
--- NOTE | 2023-10-07 10:04 | ONCRAD TMN_ITS ---
Radiation Oncology Weekly Treatment Management Patient: Gilson Rajan MR#: [id number] : 1960 Attending Physician: Dr. Darlene Rivers Date of Service: 10/07/2023 Fractions: 3 out of 35 Referring Physician(s) : Diagnosis: C32.1 - Malignant neoplasm of supraglottis, Diagnosed 09/18/2023 (Active) Radiotherapy to date: Course: HN 2023, Treatment Site: [facility] 70/63/56, Ref. ID: [id number], Energy: 6X, Dose/Fx (cGy): 200, #Fx: 3 / 35, Dose Correction (cGy): 0, Total Dose Delivered (cGy): 600, Start Date: 10/02/2023, Elapsed Days: 5 Reason for visit: The patient is being seen today as part of their regularly scheduled weekly on treatment visits to assess for acute toxicities from radiotherapy. Review of Systems: Patient has noticed no real changes. His throat is about the same in terms of the soreness. Vital Signs: Performed on 10/07/2023 9:42 AM BMI - 18.605 kg/m2, Height - 65 in, Weight - 111.8 lbs, Temperature - 97.1 f, Pulse - 55 /min (low), Respiration - 16 /min, O2 Sat - 98 %, Pain - 0, Fatigue - 0 and BP - 102/ 67 mm(hg). Physical Exam: No changes on exam noted Imaging: Radiation therapy imaging related to accurate target localization (i.e. KV, MV and CBCT) was reviewed. Appropriate changes, if any, were made to ensure treatment accuracy. Plan: His was with him today and she is concerned about not being able to get enough calories in. They are getting about 2000 a day but they wanted 2500 today. We talked about adding some protein powder to his shakes. I encouraged him to do some static exercises for his back which has been a major issue since he is lost all his weight. We talked about the next few weeks and how his pain will improve but then become sore again from the radiation. At this point they are seeing the surgeon later today for port placement. Signed by: Dr. Darlene Rivers 10/07/2023 10:02:14 AM
[2023-10-09 08:05] VITALS: BP 66/47; PULSE 60; RESP 16
[2023-10-09 08:10] VITALS: BP 79/55; PULSE 62; RESP 17
[2023-10-09 08:22] LABS: Basophils % 0.6 %; Eosinophils # 0.2 10^3/uL (0.0-0.8); Eosinophils % 2.5 %; Hematocrit 41.8 % (37-53); Lymphocytes # 1.2 10^3/uL (0.8-4.8); Lymphocytes % 17.7 %; Mean Corpuscular HGB Conc 31.1 g/dL (30-55); Mean Corpuscular Volume 93.3 fl (82-101); Mean Platelet Volume 11.9 fL (7.4-10.4); Monocytes # 0.4 10^3/uL (0.2-0.9); Monocytes % 5.2 %; Neutrophils # 4.99 10^3/uL (1.8-7.7); Neutrophils % 73.7 %; Nucleated Red Blood Cells % 0 %; Platelet Count 125 10^3/cmm (157-399); Red Blood Count 4.48 10^6/uL (3.85-5.65); Red Cell Distribution Width 13.5 % (12.1-15.1); White Blood Count 6.77 10^3/uL (3.29-11.43)
[2023-10-09 08:40] LABS: Alanine Aminotransferase 58 U/L (0-41); Albumin Level 3.8 g/dL (3.5-5.2); Alkaline Phosphatase 99 U/L (40-130); Aspartate Amino Transferase 16 U/L (0-40); Blood Urea Nitrogen 32 mg/dL (8-23); Calcium 9.2 mg/dL (8.5-10.5); Carbon Dioxide 31 mmol/L (22-29); Chloride 105 mmol/L (98-107); Creatinine Clr Calc Pharmacy 67.4966; Globulin 3.2 g/dL (1.3-4.6); Glomerular Filtration Rate 97.6 mL/min (90-130); Glucose 132 mg/dL (65-115); Osmolality Calculated 305 mOsm/kg (285-295); Sodium 143 mmol/L (136-145); Total Bilirubin 0.4 mg/dL (0.15-1.2)
[2023-10-09] MEDS: magnesium sulfate premix 2 GM/50 ML PIGGYBACK IV (08:44)
[2023-10-09] MEDS: sodium chlor 0.9% + KCl 20 mEq 20 MEQ/1,000 ML BAG 500 MEQ IV (08:44)
[2023-10-09] MEDS: sodium chloride 0.9% 1,000 ML 250 ML IV (11:04)
[2023-10-09] MEDS: famotidine 20 mg/2 mL INJ IVP (11:10)
[2023-10-09] MEDS: palonosetron 0.25 mg/5 mL SDV IVP (11:11)
[2023-10-09] MEDS: OLANZapine 5 mg TABLET PO (11:13)
[2023-10-09] MEDS: diphenhydrAMINE 50 mg/mL SDV 1mL 25 MG IVP (11:14)
[2023-10-09] MEDS: fosaprepitant 150 MG in sodium chloride 0.9% 150 ML 300 MG IV (11:34)
[2023-10-09] MEDS: CISPLATIN IV (12:25)
[2023-10-09] MEDS: SODIUM CHLORIDE 0.9% IV (12:25)
[2023-10-09] MEDS: potassium chloride 20 MEQ in sodium chloride 0.9% 500 ML 500 MEQ IV (14:02)
[2023-10-09] MEDS: FUROsemide 10 mg/mL SDV 2mL 20 MG IVP (14:03)
[2023-10-09 15:33] VITALS: BP 114/78; PULSE 78; RESP 18; TEMP 36.6; O2SAT 98
== END 2023-10-09 23:59 | disposition home or self-care (01) ==
PROVIDERS: Internal Medicine; Internal Medicine Hematology & Oncology; PCP Family Medicine; Visit Provider Radiology Radiation Oncology
DX: Z53.9 Procedure and treatment not carried out, unspecified reason (principal); Z51.0 Encounter for antineoplastic radiation therapy; Z51.11 Encounter for antineoplastic chemotherapy; C32.1 Malignant neoplasm of supraglottis; Z79.52 Long term (current) use of systemic steroids; Z79.899 Other long term (current) drug therapy
CPT/HCPCS: 36415; 77300; 77301; 77334; 77338; 77386; 80053; 84443; 85025; 96365; 96366; 96367; 96368; 96375; 96413; 99024; 99205; J1100; J1200; J1453; J1940; J2469; J3475; J3480; J3490; J7030; J7040; J7050; J9060

== ENCOUNTER 2023-10-10 10:13 | Oncology outpatient (recurring) (ONCR) | payer OTHER, SELFPAY | END 2023-10-10 23:59 | disposition home or self-care (01) | LOC: ONCMED 10:13 | PROVIDERS: PCP Family Medicine; Visit Provider Radiology Radiation Oncology | DX: Z51.0 Encounter for antineoplastic radiation therapy; C32.1 Malignant neoplasm of supraglottis | CPT/HCPCS: 77336; 77386 ==

== ENCOUNTER 2023-10-13 10:37 | Day surgery (SDC) | payer OTHER, SELFPAY ==
[2023-10-13] VITALS (8 sets, daily range): BP systolic 110–145; BP diastolic 67–89; PULSE 54–78; RESP 15–17; TEMP 36.2; O2SAT 95–100; BMI 18.6
--- NOTE | 2023-10-13 10:47 | P.HPUD_ITS ---
Surgery/Procedure H&P Update DATE OF PROCEDURE: October 13, 2023 DATE H&P PERFORMED: 10/07/23 H&P UPDATE INFORMATION: I have reviewed H&P completed within last 30 days, I have examined patient prior to procedure, No changes to prior documentation and H&P is in [facility] EMR on date indicated PLANNED PROCEDURE: Operation Date: 10/13/23 11:50 Proposed Procedures p Portacath Placement 65034, Z95.828, C32.1(Not Applicable) - Sudhakar Isaacs MD
--- NOTE | 2023-10-13 10:47 | W.PM.OPSUD ---
Surgery/Procedure H&P Update DATE OF PROCEDURE: October 13, 2023 DATE H&P PERFORMED: 10/07/23 H&P UPDATE INFORMATION: I have reviewed H&P completed within last 30 days, I have examined patient prior to procedure, No changes to prior documentation and H&[place] is in [facility] [place] date indicated PLANNED PROCEDURE: Operation Date: 10/13/23 11:50 Proposed Procedures p Portacath Placement 73780, Z95.828, C32.1(Not Applicable) - Sudhakar Isaacs MD
--- NOTE | 2023-10-13 10:51 | SC_ITS ---
WS: [id number] C-arm FL for CVA [id number] REASON FOR EXAM: For Vascular access FINDINGS: Chemotherapy infusion port over the right chest right internal jugular vein infusion catheter. Cathet er tip appears to be within the distal SVC. There is no pneumothorax.
[2023-10-13] MEDS: sodium chloride 0.9% 1,000 ML 30 ML IV (11:13)
--- NOTE | 2023-10-13 12:46 | ANES.PREANE2 ---
Pre-Anesthetic Assessment Height/Weight: Height 1.65 m Weight 50.802 kg Temp Pulse Resp BP Pulse Ox O2 Del Method 97.2 F L 54 L 17 110/74 100 Room Air 10/13/23 11:03 10/13/23 11:03 10/13/23 11:03 10/13/23 11:03 10/13/23 11:03 10/13/23 11:03 Operation Date: 10/13/23 11:50 Proposed Procedures p Portacath Placement 38494, Z95.828, C32.1(Not Applicable) - Sudhakar Isaacs MD Familial anesthetic complications: Difficult intubation Was Beta Jaime taken within 24 hours: N/A Was Clonidine taken within 24 hours: N/A Last intake: Intake Last Liquid Date 10/12/23 Last Liquid Time 19:00 Last Solid Date 10/12/23 Last Solid Time 19:00 Social No alcohol and No tobacco Exam alert, oriented x 3, clear to auscultation bilaterally and regular rate & rhythm Airway Comments: Comments: supraglottic mass with trach placed in late august Anesthetic Plan ASA status: 3 Anesthesia: MAC Risk of > 500 ml blood loss (7ml/kg in children): No Medications/Allergies Home Medications Medication Instructions Recorded Confirmed Last Taken Type oxycodone 5 mg tablet 5 mg PO Q4H PRN Severe Pain #15 09/14/23 10/10/23 09/14/23 Rx tabs sennosides 8.6 mg-docusate sodium 1 tab PO BID #10 tabs 09/14/23 10/10/23 1 Week Ago Rx 50 mg tablet (Stool ~10/03/23 Softener-Laxative) dextromethorphan-guaifenesin 5 20 ml PO Q8H PRN Cough 10/02/23 10/13/23 10/12/23 History mg-100 mg/5 mL oral liquid (Child Robitussin Cough-Chest DM) marijuana 1 applic peg-tube DAILY PRN Anxiety 10/02/23 10/10/23 10/10/23 History clindamycin HCl 300 mg capsule 300 mg PO TID 3 days #9 caps 10/07/23 10/13/23 10/12/23 Rx zolpidem 5 mg tablet (Ambien) 5 mg PO BEDTIME 10/13/23 10/13/23 1 Week Ago History ~10/03/23 Allergies Allergy/AdvReac Type Severity Reaction Status Date / Time Penicillins Allergy ALGY-Hives Verified 10/13/23 10:59 Current Medications Generic Name Dose Route Start Last Admin Trade Name Jj PRN Reason Stop Dose Admin Sodium Chloride 1,000 mls @ 30 mls/hr 10/13/23 11:00 10/13/23 11:13 Sodium Chloride 0.9% IV 10/14/23 10:59 30 mls/hr .Q24H CINDY Administration PFSH Anesthesia Medical History Abnormal PSA Benign non-nodular prostatic hyperplasia with lower urinary tract symptoms Broken wrist History of basal cell carcinoma (BCC) of skin On shoulder - 5-6 years ago Smoking addiction Supraglottic mass Surgical History History of cataract surgery with lens implant Hx of appendectomy Family History Father , AT AGE 64 LUNG CANCER No problems noted. Social History Smoking and tobacco/nicotine status: unknown if used tobacco/nicotine Quit status (tobacco/nicotine): has quit using Year quit tobacco: August 2023 Former quit date comment: 50 years total tobacco use Second hand smoke exposure: No Alcohol intake: never Substance/Drug Use: current Substance/Drug use frequency: few times a week Adopted: No Caregiver/support person: No Lives independently: No Household members: spouse Marital status: service: No Current occupational status: employed Pets and animals: Yes Pets & animals: cat(s) and dog(s) Current gender identity: Male Special regino needs: No Data Anesthesia Cardiac Studies: No Data to Display
[2023-10-13] MEDS: vancomycin 1,000 MG in sodium chloride 0.9% 250 ML 250 MG IV (12:51)
[2023-10-13] MEDS: lidocaine-epi 1% 20 mL INJ INJECTION (14:12)
[2023-10-13] MEDS: heparin, porcine 1,000 unit/mL INJ 10 mL 6000 UNIT IRRIGATION (14:13)
--- NOTE | 2023-10-13 14:26 | P.OP_ITS ---
Operative Report Date of procedure: October 13, 2023 Pre-op diagnosis: Throat cancer Post-op diagnosis: Same Procedure done: Insertion of Port-A-Cath on the right IJ Implants: Bard Port-A-Cath Surgeon: Sudhakar Isaacs MD Supervisor [employer]: [employer] OR Staff Estimated blood loss: 10 Complications: none apparent Brief History: 63-year-old male who presented to my clinic for evaluation for possible port placement for chemotherapy. After discussion of all risk benefits as documented my preop note we decided to proceed. Procedure: Patient was brought into the OR, he was placed in a supine position, mother anesthesia sedation was given. Careful consideration was made to not dislodge his tracheostomy tube. Timeout was conducted after the skin was prepped and draped in the usual sterile fashion. I then proceeded to identify the right IJ vein with ultrasound, I infiltrated local anesthesia on top of the vein. I then proceeded to cannulate the vein under direct ultrasound guidance using an 18- gauge needle, the needle tip was seen entering the vein and immediate return of blood was noted. A wire was advanced through the needle and the needle was removed. The position of the wire was verified with ultrasound and fluoroscopy. The wire was then fixed to the drapes. I then placed my attention to the chest, local anesthesia was infiltrated in the previously marked area on the chest and then a tract connecting the chest to the wire insertion site in the neck. I then proceeded to make a 3.5 cm incision in the right upper chest, the incision was deepened to subcutaneous tissue with electrocautery and electrocautery was used to create the subcutaneous pocket to house the Port-A-Cath. I then proceeded to use a hemostat to create a tunnel from the chest wound to the neck. I then proceeded to make a 0.5 cm incision at the level of the wire insertion site in the neck. Hemostasis was verified. I then placed the Port-A-Cath in the pocket and tunneled the catheter using the provided tunneler. The catheter was cut to appropriate length under fluoroscopy guidance and then flushed. I then proceeded to insert an introducer with a peel-off sheath over the wire under direct fluoroscopic guidance. I then remove the wire and the introducer leaving the peel-off sheath in place. The catheter was then advanced through the peel-off sheath and the peel-off sheath was removed leaving the catheter in place. Fluoroscopy showed evidence of Adequate catheter position. I then proceeded to access the port; the port was retrieving blood and flushing fine, I then hep-locked the catheter. Hemostasis was verified. The wound was closed in layers using #3-0 Vicryl for the subcutaneous tissue and #4 Monocryl for the skin. Dermabond was applied. At the end of the procedure all counts were correct. The patient tolerated well the procedure and was transferred to the PACU in stable condition.
--- NOTE | 2023-10-13 15:30 | ANE.PACU2 ---
Inpatient post-anesthesia follow up: Airway intact: Yes Vital signs: Temperature 97.2 F Pulse Rate 57 Respiratory Rate 17 Blood Pressure 145/89 Pulse Oximetry 98 Oxygen Delivery Me thod Room Air Oxygen Flow Rate Fraction of Inspir ed Oxygen Hydration adequate: Yes Nausea and vomiting: No Pain level: 1 Mental status: Baseline
--- NOTE | 2023-10-13 16:41 | SC_ITS ---
WS: [id number] C-arm FL for CVA 60522 REASON FOR EXAM: For Vascular access FINDINGS: Chemotherapy infusion port over the right chest right internal jugular vein infusion catheter. Cathet er tip appears to be within the distal SVC. There is no pneumothorax. SC/C-arm FL for CVA 95608 IMPRESSION: Right-sided chemotherapy infusion port and catheter placement without abnormali ty.
== END 2023-10-13 15:28 | disposition home or self-care (01) ==
PROVIDERS: PCP Family Medicine; Visit Provider Surgery
PROC: (CPT 36561; principal; 2023-10-13 11:40)
DX: C14.0 Malignant neoplasm of pharynx, unspecified (principal); Z87.891 Personal history of nicotine dependence
CPT/HCPCS: 36561; 77001; C1788; J1644; J2704; J3010; J3370; J7030; J7050

== ENCOUNTER 2023-10-24 10:16 | Oncology outpatient (recurring) (ONCR) | payer OTHER, SELFPAY ==
--- NOTE | 2023-10-14 10:50 | ONCRAD TMN_ITS ---
Radiation Oncology Weekly Treatment Management Patient: Satinder Barcaly MR#: [id number] : 1960> Attending Physician: Dr. 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 ID: [id number], Energy: 6X, Dose/Fx (cGy): 200, #Fx: 8 / 35, Dose Correction (cGy): 0, Total Dose Delivered (cGy): 1,600, Start Date: 10/02/2023, Elapsed Days: 12 Reason for visit: The patient is being seen today as part of their regularly scheduled weekly on treatment visits to assess for acute toxicities from radiotherapy. Review of Systems: Patient noticed that a week ago he was coughing and was coughing quite a bit of blood. However for the last few days he coughs and there is been no blood. He is also able to swallow water when he turns his head a certain way. Vital Signs: Performed on 10/14/2023 10:32 AM BMI - 16.874 kg/m2 (low), Height - 65 in, Weight - 101.4 lbs, Temperature - 96.3 f, Pulse - 57 /min (low), Respiration - 18 /min, O2 Sat - 98 %, Pain - 0, Fatigue - 0 and BP - 99/ 62 mm(hg)(/low). Physical Exam: No real changes on exam Imaging: Radiation therapy imaging related to accurate target localization (i.e. KV, MV and CBCT) was reviewed. Appropriate changes, if any, were made to ensure treatment accuracy. Plan: Will continue with his treatments as planned. He now has his port in him to be able to get his chemo through the port. Signed by: Dr. Darlene Rivers 10/14/2023 10:48:57 AM
[2023-10-16 08:00] VITALS: BP 104/60; PULSE 55; RESP 18; TEMP 36.8; O2SAT 96
[2023-10-16 08:13] VITALS: BMI 19.4
[2023-10-16 08:21] LABS: Basophils % 0.6 %; Eosinophils # 0.2 10^3/uL (0.0-0.8); Eosinophils % 4.3 %; Hematocrit 31.8 % (37-53); Lymphocytes # 0.7 10^3/uL (0.8-4.8); Lymphocytes % 14.9 %; Mean Corpuscular HGB Conc 32.7 g/dL (30-55); Mean Corpuscular Hemoglobin 29.4 pg (27-33); Mean Corpuscular Volume 89.8 fl (82-101); Monocytes # 0.2 10^3/uL (0.2-0.9); Neutrophils # 3.48 10^3/uL (1.8-7.7); Nucleated Red Blood Cells % 0 %; Platelet Count 124 10^3/cmm (157-399); Red Blood Count 3.54 10^6/uL (3.85-5.65); Red Cell Distribution Width 13.2 % (12.1-15.1); White Blood Count 4.64 10^3/uL (3.29-11.43)
[2023-10-16 08:42] LABS: Alanine Aminotransferase 31 U/L (0-41); Albumin Level 3.4 g/dL (3.5-5.2); Alkaline Phosphatase 83 U/L (40-130); Anion Gap 13.5 (5-19); Aspartate Amino Transferase 13 U/L (0-40); Blood Urea Nitrogen 30 mg/dL (8-23); Calcium 8.2 mg/dL (8.5-10.5); Carbon Dioxide 26 mmol/L (22-29); Chloride 101 mmol/L (98-107); Creatinine Clr Calc Pharmacy 103.6078; Globulin 2.6 g/dL (1.3-4.6); Glomerular Filtration Rate 136.1 mL/min (90-130); Glucose 100 mg/dL (65-115); Osmolality Calculated 288 mOsm/kg (285-295); Potassium 4.5 mmol/L (3.5-5.1); Sodium 136 mmol/L (136-145); Total Bilirubin 0.2 mg/dL (0.15-1.2)
[2023-10-16] MEDS: sodium chlor 0.9% + KCl 20 mEq 20 MEQ/1,000 ML BAG 500 MEQ IV (09:44)
[2023-10-16] MEDS: magnesium sulfate premix 2 GM/50 ML PIGGYBACK IV (09:45)
[2023-10-16] MEDS: diphenhydrAMINE 50 mg/mL SDV 1mL 25 MG IVP (10:00)
[2023-10-16 10:17] LABS: Iron 63 ug/dL (59-158); Percent Saturation 26.4 % (20-50); Total Iron Binding Capacity 238 mcg/dl; Unsaturated Iron Binding 175 ug/dL (112-347)
[2023-10-16 10:33] LABS: Vitamin B12 883 pg/mL (232-1245)
[2023-10-16] MEDS: sodium chloride 0.9% 250 ML 75 ML IV (11:18)
[2023-10-16] MEDS: fosaprepitant 150 MG in sodium chloride 0.9% 150 ML 300 MG IV (11:19)
[2023-10-16] MEDS: famotidine 20 mg/2 mL INJ IVP (11:19)
[2023-10-16] MEDS: OLANZapine 5 mg TABLET PO (11:32)
[2023-10-16] MEDS: palonosetron 0.25 mg/5 mL SDV IVP (11:34)
[2023-10-16] MEDS: CISPLATIN IV (12:51)
[2023-10-16] MEDS: SODIUM CHLORIDE 0.9% IV (12:51)
[2023-10-16 13:56] VITALS: BP 117/66; PULSE 71; RESP 18; TEMP 35.7; O2SAT 96
[2023-10-16] MEDS: potassium chloride 20 MEQ in sodium chloride 0.9% 500 ML 500 MEQ IV (13:56)
[2023-10-16] MEDS: FUROsemide 10 mg/mL SDV 2mL 20 MG IVP (13:57)
--- NOTE | 2023-10-21 10:50 | ONCRAD TMN_ITS ---
Radiation Oncology Weekly Treatment Management Patient: Gilson Rajan MR#: [id number] : 1960 Attending Physician: Dr. 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 ID: [id number], Energy: 6X, Dose/Fx (cGy): 200, #Fx: 13 / 35, Dose Correction (cGy): 0, Total Dose Delivered (cGy): 2,600, Start Date: 10/02/2023, Elapsed Days: 19 Reason for visit: The patient is being seen today as part of their regularly scheduled weekly on treatment visits to assess for acute toxicities from radiotherapy. Review of Systems: Patient was actually feeling fairly well today. He has noticed no substantial soreness or skin changes Vital Signs: Performed on 10/21/2023 10:31 AM BMI - 18.904 kg/m2, Height - 65 in, Weight - 113.6 lbs, Temperature - 97.8 f, Pulse - 49 /min (low), Respiration - 16 /min, O2 Sat - 96 %, Pain - 0, Fatigue - 6 and BP - 92/ 59 mm(hg)(/low). Physical Exam: On exam his skin has no changes as yet Imaging: Radiation therapy imaging related to accurate target localization (i.e. KV, MV and CBCT) was reviewed. Appropriate changes, if any, were made to ensure treatment accuracy. Plan: His blood pressure today was lower than normal. We talked about how much fluid he is taking in. He realized that he has not been getting in as much water as he normally would if he was drinking orally. We reviewed some different techniques for him to get this fluid in. I also reminded him that he can put anything through the tube as long as it is in liquid form and always flush after. At this point we will check his blood pressure tomorrow and we will continue with his treatments as planned Signed by: Dr. Darlene Rivers 10/21/2023 10:48:22 AM
[2023-10-23 07:51] LABS: Basophils % 0.6 %; Eosinophils # 0.2 10^3/uL (0.0-0.8); Eosinophils % 4.3 %; Hematocrit 29.8 % (37-53); Lymphocytes # 0.6 10^3/uL (0.8-4.8); Lymphocytes % 17.8 %; Mean Corpuscular HGB Conc 33.2 g/dL (30-55); Mean Corpuscular Hemoglobin 29.7 pg (27-33); Mean Corpuscular Volume 89.5 fl (82-101); Mean Platelet Volume 9.6 fL (7.4-10.4); Monocytes # 0.3 10^3/uL (0.2-0.9); Monocytes % 7.5 %; Neutrophils # 2.42 10^3/uL (1.8-7.7); Neutrophils % 69.5 %; Nucleated Red Blood Cells % 0 %; Platelet Count 154 10^3/cmm (157-399); Red Blood Count 3.33 10^6/uL (3.85-5.65); Red Cell Distribution Width 13.4 % (12.1-15.1); White Blood Count 3.48 10^3/uL (3.29-11.43)
[2023-10-23 09:00] LABS: Alanine Aminotransferase 16 U/L (0-41); Albumin Level 3.4 g/dL (3.5-5.2); Alkaline Phosphatase 93 U/L (40-130); Anion Gap 13.3 (5-19); Aspartate Amino Transferase 12 U/L (0-40); Blood Urea Nitrogen 22 mg/dL (8-23); Calcium 8.6 mg/dL (8.5-10.5); Carbon Dioxide 27 mmol/L (22-29); Chloride 98 mmol/L (98-107); Creatinine Clr Calc Pharmacy 88.3563; Globulin 2.5 g/dL (1.3-4.6); Glomerular Filtration Rate 113.9 mL/min (90-130); Glucose 93 mg/dL (65-115); Osmolality Calculated 281 mOsm/kg (285-295); Potassium 4.3 mmol/L (3.5-5.1); Sodium 134 mmol/L (136-145); Total Bilirubin 0.3 mg/dL (0.15-1.2); Total Protein 5.9 g/dL (6.6-8.7)
[2023-10-23] MEDS: sodium chlor 0.9% + KCl 20 mEq 20 MEQ/1,000 ML BAG 1000 MEQ IV (09:21)
[2023-10-23] MEDS: magnesium sulfate premix 2 GM/50 ML PIGGYBACK IV (09:22)
[2023-10-23] MEDS: OLANZapine 5 mg TABLET PO (10:41)
[2023-10-23] MEDS: fosaprepitant 150 MG in sodium chloride 0.9% 150 ML 300 MG IV (10:41)
[2023-10-23] MEDS: palonosetron 0.25 mg/5 mL SDV IVP (11:28)
[2023-10-23] MEDS: dexamethasone 4 mg/mL INJ 5 mL 12 MG IV (11:28)
[2023-10-23] MEDS: famotidine 20 mg/2 mL INJ IVP (11:31)
[2023-10-23] MEDS: sodium chloride 0.9% 250 ML 75 ML IV (11:32)
[2023-10-23] MEDS: diphenhydrAMINE 50 mg/mL SDV 1mL 25 MG IVP (11:33)
[2023-10-23] MEDS: SODIUM CHLORIDE 0.9% IV (11:38)
[2023-10-23] MEDS: CISPLATIN IV (11:38)
[2023-10-23] MEDS: potassium chloride 20 MEQ in sodium chloride 0.9% 500 ML 500 MEQ IV (13:15)
[2023-10-23] MEDS: FUROsemide 10 mg/mL SDV 2mL 20 MG IVP (13:16)
[2023-10-23 14:25] VITALS: BP 116/77; PULSE 48; RESP 16; O2SAT 94
== END 2023-10-24 23:59 | disposition home or self-care (01) ==
PROVIDERS: Nurse Practitioner Family; PCP Family Medicine; Visit Provider Radiology Radiation Oncology
DX: Z51.0 Encounter for antineoplastic radiation therapy; C32.1 Malignant neoplasm of supraglottis
CPT/HCPCS: 77336; 77386; 80053; 82607; 83540; 83550; 85025; 96366; 96367; 96368; 96375; 96413; 99024; J1100; J1200; J1453; J1940; J2469; J3475; J3480; J3490; J7040; J7050; J9060

== ENCOUNTER 2023-11-07 10:09 | Oncology outpatient (recurring) (ONCR) | payer OTHER, SELFPAY ==
--- NOTE | 2023-10-28 10:40 | ONCRAD TMN_ITS ---
Radiation Oncology Weekly Treatment Management Patient: Gilson Rajan MR#: [id number] : 1960 Attending Physician: Dr. 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 ID: [id number], Energy: 6X, Dose/Fx (cGy): 200, #Fx: 18 / 35, Dose Correction (cGy): 0, Total Dose Delivered (cGy): 3,600, Start Date: 10/02/2023, Elapsed Days: 26 Reason for visit: The patient is being seen today as part of their regularly scheduled weekly on treatment visits to assess for acute toxicities from radiotherapy. Review of Systems: Patient is actually feeling fairly well. He has had no pain. He is no longer taking any pain pills. He has noticed that his energy level is beginning to decrease usually in the afternoon Vital Signs: Performed on 10/28/2023 10:19 AM BMI - 18.871 kg/m2, Height - 65 in, Weight - 113.4 lbs, Temperature - 96.5 f, Pulse - 54 /min (low), Respiration - 16 /min, O2 Sat - 97 %, Pain - 0, Fatigue - 7 and BP - 107/ 66 mm(hg). Physical Exam: On exam his skin is mildly erythematous and a little dry Imaging: Radiation therapy imaging related to accurate target localization (i.e. KV, MV and CBCT) was reviewed. Appropriate changes, if any, were made to ensure treatment accuracy. Plan: Will continue with his treatments as planned. He did have some issues with constipation alternating with diarrhea. I suggested some different things he can try for leveling this out. Signed by: Dr. Darlene Rivers 10/28/2023 10:39:30 AM
[2023-10-30 07:58] LABS: Basophils % 0.9 %; Eosinophils # 0.1 10^3/uL (0.0-0.8); Eosinophils % 3.1 %; Hematocrit 29.9 % (37-53); Lymphocytes # 0.6 10^3/uL (0.8-4.8); Lymphocytes % 18.8 %; Mean Corpuscular HGB Conc 33.1 g/dL (30-55); Mean Corpuscular Hemoglobin 29.6 pg (27-33); Mean Corpuscular Volume 89.5 fl (82-101); Mean Platelet Volume 9.7 fL (7.4-10.4); Monocytes # 0.2 10^3/uL (0.2-0.9); Monocytes % 7.5 %; Neutrophils # 2.22 10^3/uL (1.8-7.7); Neutrophils % 69.4 %; Nucleated Red Blood Cells % 0 %; Platelet Count 160 10^3/cmm (157-399); Red Blood Count 3.34 10^6/uL (3.85-5.65); Red Cell Distribution Width 14.6 % (12.1-15.1)
[2023-10-30 08:18] LABS: Alanine Aminotransferase 24 U/L (0-41); Albumin Level 3.7 g/dL (3.5-5.2); Alkaline Phosphatase 88 U/L (40-130); Aspartate Amino Transferase 12 U/L (0-40); Blood Urea Nitrogen 20 mg/dL (8-23); Calcium 8.5 mg/dL (8.5-10.5); Carbon Dioxide 27 mmol/L (22-29); Chloride 102 mmol/L (98-107); Globulin 2.4 g/dL (1.3-4.6); Glomerular Filtration Rate 113.9 mL/min (90-130); Glucose 125 mg/dL (65-115); Osmolality Calculated 288 mOsm/kg (285-295); Sodium 137 mmol/L (136-145); Total Bilirubin 0.2 mg/dL (0.15-1.2); Total Protein 6.1 g/dL (6.6-8.7)
[2023-10-30] MEDS: sodium chlor 0.9% + KCl 20 mEq 20 MEQ/1,000 ML BAG 667 MEQ IV (09:55)
[2023-10-30] MEDS: magnesium sulfate premix 2 GM/50 ML PIGGYBACK IV (09:56)
[2023-10-30] MEDS: sodium chloride 0.9% 250 ML 75 ML IV (11:31)
[2023-10-30] MEDS: diphenhydrAMINE 50 mg/mL SDV 1mL 25 MG IVP (11:36)
[2023-10-30] MEDS: palonosetron 0.25 mg/5 mL SDV IVP (11:48)
[2023-10-30] MEDS: famotidine 20 mg/2 mL INJ IVP (11:52)
[2023-10-30] MEDS: dexamethasone 4 mg/mL INJ 5 mL 12 MG IVP (11:55)
[2023-10-30] MEDS: fosaprepitant 150 MG in sodium chloride 0.9% 150 ML 300 MG IV (11:59)
[2023-10-30] MEDS: OLANZapine 5 mg TABLET PO (12:00)
[2023-10-30] MEDS: SODIUM CHLORIDE 0.9% IV (12:40)
[2023-10-30] MEDS: CISPLATIN IV (12:40)
[2023-10-30] MEDS: FUROsemide 10 mg/mL SDV 2mL 20 MG IVP (14:21)
[2023-10-30] MEDS: potassium chloride 20 MEQ in sodium chloride 0.9% 500 ML 500 MEQ IV (14:28)
[2023-10-30 15:41] VITALS: BP 114/77; PULSE 59; RESP 16; O2SAT 95
[2023-11-06 07:46] VITALS: BP 96/63; PULSE 77; RESP 16; TEMP 37.3; O2SAT 96
[2023-11-06 07:53] LABS: Eosinophils # 0.1 10^3/uL (0.0-0.8); Eosinophils % 4.5 %; Hematocrit 29.4 % (37-53); Lymphocytes # 0.5 10^3/uL (0.8-4.8); Lymphocytes % 17.9 %; Mean Corpuscular HGB Conc 33.3 g/dL (30-55); Mean Platelet Volume 9.1 fL (7.4-10.4); Monocytes # 0.3 10^3/uL (0.2-0.9); Monocytes % 8.9 %; Neutrophils # 1.96 10^3/uL (1.8-7.7); Neutrophils % 67.4 %; Nucleated Red Blood Cells % 0 %; Platelet Count 141 10^3/cmm (157-399); Red Blood Count 3.16 10^6/uL (3.85-5.65); Red Cell Distribution Width 16.3 % (12.1-15.1); White Blood Count 2.91 10^3/uL (3.29-11.43)
[2023-11-06 08:05] LABS: Alanine Aminotransferase 14 U/L (0-41); Albumin Level 3.6 g/dL (3.5-5.2); Alkaline Phosphatase 85 U/L (40-130); Anion Gap 10.3 (5-19); Aspartate Amino Transferase 11 U/L (0-40); Blood Urea Nitrogen 17 mg/dL (8-23); Calcium 8.6 mg/dL (8.5-10.5); Carbon Dioxide 27 mmol/L (22-29); Chloride 101 mmol/L (98-107); Creatinine Clr Calc Pharmacy 88.5298; Globulin 2.4 g/dL (1.3-4.6); Glomerular Filtration Rate 113.9 mL/min (90-130); Glucose 107 mg/dL (65-115); Osmolality Calculated 280 mOsm/kg (285-295); Potassium 4.3 mmol/L (3.5-5.1); Sodium 134 mmol/L (136-145); Total Bilirubin 0.2 mg/dL (0.15-1.2)
[2023-11-06] MEDS: magnesium sulfate premix 2 GM/50 ML PIGGYBACK IV (09:19)
[2023-11-06] MEDS: sodium chlor 0.9% + KCl 20 mEq 20 MEQ/1,000 ML BAG 500 MEQ IV (09:20)
[2023-11-06] MEDS: sodium chloride 0.9% 250 ML 75 ML IV (10:53)
[2023-11-06] MEDS: diphenhydrAMINE 50 mg/mL SDV 1mL 25 MG IVP (10:54)
[2023-11-06] MEDS: famotidine 20 mg/2 mL INJ IVP (10:56)
[2023-11-06] MEDS: fosaprepitant 150 MG in sodium chloride 0.9% 150 ML 300 MG IV (10:57)
[2023-11-06] MEDS: OLANZapine 5 mg TABLET PO (10:57)
[2023-11-06] MEDS: palonosetron 0.25 mg/5 mL SDV IVP (10:59)
[2023-11-06] MEDS: dexamethasone 4 mg/mL INJ 5 mL 12 MG IVP (11:03)
[2023-11-06] MEDS: CISPLATIN IV (11:52)
[2023-11-06] MEDS: SODIUM CHLORIDE 0.9% IV (11:52)
[2023-11-06] MEDS: FUROsemide 10 mg/mL SDV 2mL 20 MG IVP (13:48)
[2023-11-06] MEDS: potassium chloride 20 MEQ in sodium chloride 0.9% 500 ML 500 MEQ IV (13:48)
[2023-11-06 14:45] VITALS: BP 115/73; PULSE 55; RESP 16; TEMP 36.2; O2SAT 99
== END 2023-11-09 23:59 | disposition home or self-care (01) ==
PROVIDERS: Internal Medicine Medical Oncology; PCP Family Medicine; Visit Provider Radiology Radiation Oncology
DX: Z51.0 Encounter for antineoplastic radiation therapy; C32.1 Malignant neoplasm of supraglottis
CPT/HCPCS: 77336; 77386; 80053; 85025; 96367; 96368; 96375; 96413; J1100; J1200; J1453; J1940; J2469; J3475; J3480; J3490; J7040; J7050; J9060

== ENCOUNTER 2023-12-10 07:52 | Oncology outpatient (recurring) (ONCR) | payer OTHER, SELFPAY ==
--- NOTE | 2023-11-11 10:47 | ONCRAD TMN_ITS ---
Radiation Oncology Weekly Treatment Management Patient: Gilson Rajan MR#: [id number] : 1960 Attending Physician: Dr. 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 ID: [id number], Energy: 6X, Dose/Fx (cGy): 200, #Fx: 28 / 35, Dose Correction (cGy): 0, Total Dose Delivered (cGy): 5,600, Start Date: 10/02/2023, Elapsed Days: 40 Reason for visit: The patient is being seen today as part of their regularly scheduled weekly on treatment visits to assess for acute toxicities from radiotherapy. Review of Systems: Patient is having considerable issues with soreness in his throat. His trach is bothering him. He is making considerable sticky secretions which she has to suction 10 times at night. He is not sleeping well. Vital Signs: Performed on 11/11/2023 10:16 AM BMI - 19.47 kg/m2, Height - 65 in, Weight - 117 lbs, Temperature - 96.5 f, Pulse - 58 /min (low), Respiration - 16 /min, O2 Sat - 96 %, Pain - 4, Fatigue - 6 and BP - 99/ 65 mm(hg). Physical Exam: On exam his skin is just very erythematous but there is no moist or dry desquamation he does spit in the sink 4 times during our encounter Imaging: Radiation therapy imaging related to accurate target localization (i.e. KV, MV and CBCT) was reviewed. Appropriate changes, if any, were made to ensure treatment accuracy. Plan: I offered him a treatment break. He declined he says he just wants to get it done. So at this point we will continue as planned Signed by: Dr. Darlene Rivers 11/11/2023 10:46:03 AM
[2023-11-12 08:09] LABS: Basophils % 1.2 %; Eosinophils # 0.1 10^3/uL (0.0-0.8); Eosinophils % 3.1 %; Hematocrit 27.1 % (37-53); Lymphocytes # 0.4 10^3/uL (0.8-4.8); Lymphocytes % 14.8 %; Mean Corpuscular HGB Conc 33.2 g/dL (30-55); Mean Corpuscular Volume 93.4 fl (82-101); Monocytes # 0.2 10^3/uL (0.2-0.9); Neutrophils % 70.3 %; Nucleated Red Blood Cells % 0 %; Platelet Count 134 10^3/cmm (157-399); Red Cell Distribution Width 18.1 % (12.1-15.1); White Blood Count 2.56 10^3/uL (3.29-11.43)
[2023-11-12 08:27] LABS: Alanine Aminotransferase 11 U/L (0-41); Albumin Level 3.6 g/dL (3.5-5.2); Alkaline Phosphatase 81 U/L (40-130); Anion Gap 12.1 (5-19); Aspartate Amino Transferase 9 U/L (0-40); Blood Urea Nitrogen 22 mg/dL (8-23); Calcium 8.6 mg/dL (8.5-10.5); Carbon Dioxide 27 mmol/L (22-29); Chloride 100 mmol/L (98-107); Globulin 2.2 g/dL (1.3-4.6); Glomerular Filtration Rate 113.9 mL/min (90-130); Glucose 124 mg/dL (65-115); Osmolality Calculated 285 mOsm/kg (285-295); Potassium 4.1 mmol/L (3.5-5.1); Sodium 135 mmol/L (136-145); Total Bilirubin 0.2 mg/dL (0.15-1.2); Total Protein 5.8 g/dL (6.6-8.7)
[2023-11-12] MEDS: sodium chlor 0.9% + KCl 20 mEq 20 MEQ/1,000 ML BAG 500 MEQ IV (09:40)
[2023-11-12] MEDS: magnesium sulfate premix 2 GM/50 ML PIGGYBACK IV (09:41)
[2023-11-12] MEDS: OLANZapine 5 mg TABLET PO (11:11)
[2023-11-12] MEDS: sodium chloride 0.9% 250 ML 75 ML IV (11:11)
[2023-11-12] MEDS: diphenhydrAMINE 50 mg/mL SDV 1mL 25 MG IVP (11:12)
[2023-11-12] MEDS: famotidine 20 mg/2 mL INJ IVP (11:13)
[2023-11-12] MEDS: palonosetron 0.25 mg/5 mL SDV IVP (11:14)
[2023-11-12] MEDS: dexamethasone 4 mg/mL INJ 12 MG IVP (11:16)
[2023-11-12] MEDS: fosaprepitant 150 MG in sodium chloride 0.9% 150 ML 300 MG IV (11:18)
[2023-11-12] MEDS: SODIUM CHLORIDE 0.9% IV (12:13)
[2023-11-12] MEDS: CISPLATIN IV (12:13)
[2023-11-12] MEDS: FUROsemide 10 mg/mL SDV 2mL 20 MG IVP (13:36)
[2023-11-12] MEDS: potassium chloride 20 MEQ in sodium chloride 0.9% 500 ML 500 MEQ IV (13:37)
[2023-11-12 14:50] VITALS: BP 120/78; PULSE 74; RESP 18; TEMP 36.6; O2SAT 98
--- NOTE | 2023-11-18 11:05 | ONCRAD TMN_ITS ---
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 ID: [id number], Energy: 6X, Dose/Fx (cGy): 200, #Fx: 31 / 35, Dose Correction (cGy): 0, Total Dose Delivered (cGy): 6,200, Start Date: 10/02/2023, Elapsed Days: 47 Reason for visit: The patient is being seen today as part of their regularly scheduled weekly on treatment visits to assess for acute toxicities from radiotherapy. 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 Patient is maintaining his weight with full use of feeding tube. He presently complains of severe soreness in the trachea area. He is wanting to see Dr. Rondon (ENT) to evaluate the removal of the trachea at some point after XRT and chemotherapy are completed. He also will need scheduled for swallowing studies in the future. He has fluctuated just 4 pounds over the entire treatment. Vital Signs: Performed on 11/18/2023 10:12 AM BMI - 19.304 kg/m2, Height - 65 in, Weight - 116 lbs, Temperature - 97.5 f, Pulse - 67 /min, Respiration - 18 /min, O2 Sat - 99 %, Pain - 0, Fatigue - 0 and BP - 116/ 74 mm(hg). Physical Exam: Alert and oriented and answers questions through trach appliance. Skin is with moderate erythema with significant irritation at the stoma area. Imaging: Radiation therapy imaging related to accurate target localization (i.e. KV, MV and CBCT) was reviewed. Appropriate changes, if any, were made to ensure treatment accuracy. Plan: Continue XRT Continue chemotherapy Schedule evaluation for swallowing studies Future Schedule ENT evaluation by Dr. Rondon in the very near future Signed by: Ben Whitlock 11/18/2023 11:03:49 AM
--- NOTE | 2023-11-25 09:59 | N.ONRD TS_ITS ---
Radiation Oncology Treatment Summary Patient: Gilson Rajan MR#: [id number] : 1960 Age: 63 Sex: Male Dictated by: Ben Whitlock M.D. 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 ID: [id number], Energy: 6X, Dose/Fx (cGy): 200, #Fx: 35 / 35, Dose Correction (cGy): 0, Total Dose Delivered (cGy): 7,000, Start Date: 10/02/2023, End Date: 11/24/2023, Elapsed Days: 53 Clinical Summary: The patient tolerated RT well. Patient tolerated concurrent chemotherapy. He remains under percent using feeding tube with good maintenance of weight. He is wanting to see ENT to evaluate the removal of his trach. He will need scheduled for for swallowing studies also. Plan: End of treatment today. Continue on the above medication until the skin reaction resolves. Follow up in one month immediately after seeing Dr. Mercado, ENT. Swallowing studies in the future. Signed by: Ben Whitlock>11/25/2023 9:57:47 AM <<Signature on File>>
[2023-12-10 08:18] LABS: Basophils # 0.1 10^3/uL (0.0-0.1); Eosinophils # 0.2 10^3/uL (0.0-0.8); Eosinophils % 3.3 %; Hematocrit 33.4 % (37-53); Lymphocytes % 19.4 %; Mean Corpuscular HGB Conc 32.3 g/dL (30-55); Mean Corpuscular Hemoglobin 32.6 pg (27-33); Mean Corpuscular Volume 100.9 fl (82-101); Mean Platelet Volume 8.9 fL (7.4-10.4); Monocytes # 0.5 10^3/uL (0.2-0.9); Monocytes % 9.4 %; Neutrophils # 3.48 10^3/uL (1.8-7.7); Neutrophils % 66.7 %; Nucleated Red Blood Cells % 0 %; Platelet Count 255 10^3/cmm (157-399); Red Blood Count 3.31 10^6/uL (3.85-5.65); Red Cell Distribution Width 20.5 % (12.1-15.1); White Blood Count 5.21 10^3/uL (3.29-11.43)
[2023-12-10 08:47] LABS: Alanine Aminotransferase 50 U/L (0-41); Albumin Level 3.9 g/dL (3.5-5.2); Alkaline Phosphatase 93 U/L (40-130); Anion Gap 12.2 (5-19); Aspartate Amino Transferase 30 U/L (0-40); Blood Urea Nitrogen 19 mg/dL (8-23); Carbon Dioxide 29 mmol/L (22-29); Chloride 100 mmol/L (98-107); Creatinine Clr Calc Pharmacy 77.7818; Glomerular Filtration Rate 97.6 mL/min (90-130); Glucose 86 mg/dL (65-115); Osmolality Calculated 286 mOsm/kg (285-295); Potassium 4.2 mmol/L (3.5-5.1); Sodium 137 mmol/L (136-145); Thyroid Stimulating Hormone 1.42 uIU/mL (0.27-4.20); Total Bilirubin 0.3 mg/dL (0.15-1.2); Total Protein 6.9 g/dL (6.6-8.7)
== END 2023-12-10 23:59 | disposition home or self-care (01) ==
PROVIDERS: Nurse Practitioner Family; PCP Family Medicine; Visit Provider Radiology Radiation Oncology
DX: C32.1 Malignant neoplasm of supraglottis; Z53.9 Procedure and treatment not carried out, unspecified reason; Z79.899 Other long term (current) drug therapy
CPT/HCPCS: 36591; 71046; 77336; 77386; 80053; 84443; 85025; 96367; 96368; 96375; 96413; 99024; J1100; J1200; J1453; J1940; J2469; J3475; J3480; J3490; J7040; J7050; J9060

== ENCOUNTER 2023-12-31 08:15 | Outpatient (CLI) | payer OTHER, SELFPAY ==
--- NOTE | 2023-12-31 08:20 | FL_ITS ---
WS: [id number] Barium swallow and esophagram, 12/31/2023 Clinical Data: MALIGNANT NEOPLASM OF SUPRAGLOTTIS Comparison: None. Fluoroscopy time: 1min [id number] # of spot films: 5 Findings: The patient swallowed the thick and thin barium, and it flowed through the hypopharynx without hesita tion. No stricture, mass, polyp or erosion was seen. There is penetration into the proximal trachea w ith residual barium in the piriform sinuses and vallecula. The barium entered the esophagus and there was normal motility throughout. No hiatal hernia, reflux, stricture, polyp, mass, erosion or ulcer was noted. The barium passed normally into the stomach. FL/FL barium swallow [id number] Impression: 1. Barium penetrates into proximal trachea with residual barium in the piriform sinuses and vallecula. 2. Negative esophagram.
== END 2023-12-31 08:16 | disposition home or self-care (01) ==
LOC: RAD 08:16
PROVIDERS: PCP Family Medicine; Visit Provider Specialist
DX: C32.1 Malignant neoplasm of supraglottis (principal)
CPT/HCPCS: 74220

== ENCOUNTER 2024-01-07 09:22 | Outpatient (CLI) | payer OTHER, SELFPAY ==
--- NOTE | 2024-01-07 09:24 | CT_ITS ---
WS: [id number] CT NECK TECHNIQUE: Contrast-enhanced CT of the neck with coronal and sagittal reformatted images. CLINICAL INFORMATION: MALIGNANT NEOPLASM OF SUPRAGLOTTIS COMPARISON: PET/CT 09/23/2023. Neck CT 08/13/2023 DLP: 118.[address] scans at [facility] use at least one of these dose optimization techniques: automated e xposure control; mA and/or kV adjustment per patient size (includes targeted exams where dose is matc hed to clinical indication); or iterative reconstruction. FINDINGS: Treatment-related changes are new since the prior examination with tracheostomy defect. Previously de scribed supraglottic neoplasm has significantly improved and essentially resolved. No significant foc al enhancing soft tissue. Residual fullness involving the supraglottic larynx eccentric to the RIGHT with edema extending into the epiglottis and vocal folds. This is presumably due to treatment related changes. Narrowing of the vallecula due to edema. Normal posterior nasopharynx. Normal subglottic airway. Persistent enlarged RIGHT jugular lymph node s which were FDG avid on the prior PET/CT. Remainder of the lymphadenopathy appears resolved. A few s lightly prominent RIGHT supraclavicular lymph nodes similar to previous. Again PET/CT could be used t o assess for active disease. Emphysematous changes in the lung apices. Ectatic aortic arch. Thyroid gland appears normal. Mastoid air cells and paranasal sinuses are well aerated. Small retention cyst LEFT maxillary sinus. CT/CT neck w con* [id number] IMPRESSION: 1. Treatment-related changes with resolution of the previously described enhan cing supraglottic mass. Residual edema described above the supraglottic larynx extending to the vocal folds. No suspicious enhancing supraglottic lesions. 2. Persistent RIGHT jugular lymph nodes which were FDG avid on the prior PET/C T. These are similar in appearance. 3. A few prominent RIGHT supraclavicular lymph nodes similar to previous. 4. Left-sided lymphadenopathy has resolved.
--- NOTE | 2024-01-07 09:24 | FL_ITS ---
WS: [id number] Exam: FL barium swallow modifd [id number] Date/Time of Exam: 01/07/2024 9:52 AM Reason For Exam: Other dysphagia Fluoroscopy time: 4min [id number] minutes # of spot films: Modified barium swallow test was performed in conjunction with the speech therapy service. Oral pharyngeal phase of swallowing was somewhat compromised specifically the patient experienced dif ficulty elevating the tongue to the hard palate to initiate swallowing. The patient experienced mild penetration into the laryngeal inlet when ingesting thin liquid barium. The patient tolerated the rem aining barium consistency foodstuffs without penetration or aspiration. The patient ingested a barium tablet which passed into the stomach without complication. FL/FL barium swallow modifd [id number] IMPRESSION: 1. Altered oropharyngeal phase of swallowing as detailed above. 2. The patient experienced mild penetration into the laryngeal inlet when inges ting thin liquid barium. No aspiration was noted. A separate report with recommendations will follow from the speech therapy serv ice.
[2024-01-07] MEDS: iohexol 350 mg/mL 500 mL Btl (per mL) IV (10:02)
== END 2024-01-07 09:23 | disposition home or self-care (01) ==
LOC: RAD 09:22
PROVIDERS: PCP Family Medicine Adult Medicine; Visit Provider Specialist
DX: C32.1 Malignant neoplasm of supraglottis (principal); J38.4 Edema of larynx; R59.0 Localized enlarged lymph nodes; R13.12 Dysphagia, oropharyngeal phase
CPT/HCPCS: 70491; 74230; 92611; Q9967

== ENCOUNTER 2024-02-13 10:13 | Outpatient (CLI) | payer OTHER, SELFPAY ==
--- NOTE | 2024-02-13 13:24 | PETR_ITS ---
PROCEDURE INFORMATION: Exam: PET/CT Skull Base to Mid-thigh Exam date and time: 02/13/2024 11:14 AM Age: 63 years old Clinical indication: Condition or disease; Primary cancer: Malignant neoplasm of supraglotis; Prior surgery; Surgery date: 6+ months; Surgery type: Trach; Additional info: Malignant neoplasm of supraglottis LABS AND CLINICAL REPORTS: Glucose: 109 mg/dl Treatment strategy for malignancy (PET staging): Restaging (PS) TECHNIQUE: Imaging protocol: Following at least four-hour fasting and following the injection of radiopharmaceutical, low dose CT images were obtained. Then, PET images were obtained. Attenuation corrected images were constructed using the CT scan. Fused images of PET and CT were reviewed. The standardized uptake values (SUV) reported below are maximum values within a region of interest, expressed in gm/ml. Exam includes orbital meatal line to mid-thigh. Radiopharmaceutical: 12.42 mCi F-18 FDG (Fluorodeoxyglucose), IV. Time of imaging post radiopharmaceutical administration: 1 hour Injection site: LEFT AC. COMPARISON: PT PET skull to thigh INIT [id number] 09/23/2023 10:40 AM FINDINGS: Tubes, catheters and devices: Right-sided Port-A-Cath terminates at the superior cavoatrial junction. Percutaneous gastrostomy tube is in place. Brain: Visualized brain has normal physiologic uptake. Pharynx: Focus of hypermetabolic uptake along the right glossotonsillar sulcus with SUV max 8.1. Larynx: Some persistent supraglottic edema without FDG uptake is seen, which may reflect treatment effect. Lungs, pleura and trachea: Emphysematous changes in the lungs. Heart: Normal physiologic uptake. Mediastinal space: No abnormal uptake. Liver: SUV max of liver is 2.8. Gallbladder and biliary ducts: No abnormal uptake. Pancreas: No abnormal uptake. Spleen: No abnormal uptake. Adrenal glands: No abnormal uptake. Kidneys and ureters: Bilateral renal cysts. No hydronephrosis. Stomach and bowel: There is more intense uptake in the region of the proximal sigmoid colon, now with SUV max 9.1, previously 4.0. There is some patchy uptake in the distal sigmoid colon with SUV max 5.5. Reproductive: Prostatomegaly. Vasculature: No abnormal uptake. Lymph nodes: Persistent mildly hypermetabolic right level 2 cervical chain lymph nodes with SUV max 3.[address] This measures up to 8 mm. Very slight uptake within left level 2 cervical chain lymph nodes is similar to background with SUV max 2.2. Skeleton: No abnormal uptake in the visualized axial and appendicular skeleton. Soft tissues: Some linear uptake in the region of the cervical spine may reflect physiologic muscular uptake. Some linear uptake in the region of the lower neck may reflect physiologic muscular uptake. Other findings: SUV max of blood pool is 2.6. PET/PET skull to thigh SUBS [id number] IMPRESSION: 1. There is a focus of hypermetabolic uptake along the right glossotonsillar sulcus of uncertain etiology and significance. This could be inflammatory or treatment related, though neoplastic involvement is not excluded. Recommend correlation with physical exam/direct inspection. 2. Persistent mildly hypermetabolic right level 2 cervical chain lymph nodes. 3. Increased intensity of focal uptake within the proximal sigmoid colon, which raises concern for colonic neoplasm. Recommend colonoscopy for further evaluation. 4. Some patchy uptake within the more distal sigmoid colon may be inflammatory. This can also be correlated with colonoscopy.
== END 2024-02-13 10:14 | disposition home or self-care (01) ==
LOC: RAD 10:13
PROVIDERS: PCP Family Medicine Adult Medicine; Visit Provider Specialist
DX: C32.1 Malignant neoplasm of supraglottis (principal); R93.89 Abnormal findings on diagnostic imaging of other specified body structures
CPT/HCPCS: 78815; A9552

== ENCOUNTER 2024-04-06 06:34 | Day surgery (SDC) | payer OTHER, SELFPAY ==
--- NOTE | 2024-04-06 05:37 | P.HPUD_ITS ---
Surgery/Procedure H&P Update DATE OF PROCEDURE: April 06, 2024 DATE H&P PERFORMED: 03/30/24 H&P UPDATE INFORMATION: I have reviewed H&P completed within last 30 days, I have examined patient prior to procedure, No changes to prior documentation and H&P is in [facility] EMR on date indicated PLANNED PROCEDURE: Operation Date: 04/06/24 07:40 Proposed Procedures p EGD Dilation W/ BALLOON - 33603, 41133, G0121, Q39.3 , Z12.11(Not Applicable) - Sudhakar Isaacs MD s Colonoscopy(Not Applicable) - Sudhakar Isaacs MD
[2024-04-06 06:49] VITALS: BP 137/85; PULSE 74; RESP 18; TEMP 36.6; O2SAT 98; BMI 21.1
[2024-04-06] MEDS: sodium chloride 0.9% 1,000 ML 30 ML IV (06:55)
--- NOTE | 2024-04-06 07:06 | P.ANESASSM_ITS ---
Pre-Anesthetic Assessment Height/Weight: Height 1.65 m Weight 57.606 kg Temp Pulse Resp BP Pulse Ox O2 Del Method 97.8 F 74 18 137/85 98 Room Air 04/06/24 06:49 04/06/24 06:49 04/06/24 06:49 04/06/24 06:49 04/06/24 06:49 04/06/24 06:49 Preop Diagnosis: Esophageal stricture Operation Date: 04/06/24 07:40 Proposed Procedures p EGD Dilation W/ BALLOON - 93311, 45980, G0121, Q39.3 , Z12.11(Not Applicable) - Sudhakar Isaacs MD s Colonoscopy(Not Applicable) - Sudhakar Isaacs MD Was Beta Jaime taken within 24 hours: N/A Was Clonidine taken within 24 hours: N/A Last intake: Intake Last Liquid Date 04/05/24 Last Liquid Time 20:30 Last Solid Date 04/05/24 Last Solid Time 05:00 Social No alcohol and No tobacco Marijuana daily Exam alert, oriented x 3, clear to auscultation bilaterally and regular rate & rhythm Airway Submandibular: within normal limits Cervical ROM: within normal limits (Appears normal but hx supraglottic CA. received radiation. Currently able to eat ) Mallampati: Class II Dentition: false History/ROS No significant history except as noted and No significant complaints Pulmonary None reported CV/HEM None reported None reported Hepatic None reported GI None reported Metabolic None reported Musc/skel None reported Neuropsych None reported Anesthetic Plan ASA status: 3 Anesthesia: Anesthesia Evaluation and MAC Risk of > 500 ml blood loss (7ml/kg in children): No Medications/Allergies Home Medications Medication Instructions Recorded Confirmed Last Taken Type marijuana 1 applic PO DAILY PRN Anxiety 10/02/23 04/06/24 04/04/24 History dextromethorphan HBr 20 mg/15 mL 20 mg PO Q4-5H PRN Cough 12/10/23 04/06/24 1 Month Ago History oral solution ~03/06/24 ondansetron HCl 4 mg tablet 4 mg PO Q8H PRN nausea and 03/30/24 04/01/24 Unknown Rx vomiting #3 tabs zolpidem 5 mg tablet (Ambien) 5 mg PO BEDTIME PRN Sleep 04/01/24 04/06/24 2 Months Ago History ~02/05/24 Allergies Allergy/AdvReac Type Severity Reaction Status Date / Time Penicillins Allergy ALGY-Hives Verified 04/06/24 06:43 [facility] Anesthesia Medical History Primary squamous cell carcinoma of supraglottis Smoking addiction Broken wrist History of basal cell carcinoma (BCC) of skin On shoulder - 5-6 years ago Benign non-nodular prostatic hyperplasia with lower urinary tract symptoms Abnormal PSA Surgical History Port-A-Cath in place History of cataract surgery with lens implant Hx of appendectomy Family History Father , AT AGE 64 LUNG CANCER No problems noted. Social History (Updated 03/30/24 @ 09:33 by Carmella Das) Smoking and tobacco/nicotine status: former use of tobacco/nicotine Quit status (tobacco/nicotine): has quit using Year quit tobacco: August 2023 Former quit date comment: 1ppd X 50 yr Second hand smoke exposure: No Alcohol intake: never Substance/Drug Use: current Substance/Drug use frequency: few times a week Adopted: No Caregiver/support person: No Lives independently: No Household members: spouse Marital status: service: No Current occupational status: employed Pets and animals: Yes Pets & animals: cat(s) and dog(s) Current gender identity: Male Special regino needs: No Data Anesthesia Cardiac Studies: No Data to Display
[2024-04-06 07:59] VITALS: BP 89/61; PULSE 60; RESP 22; TEMP 36.3; O2SAT 100
[2024-04-06 08:10] VITALS: BP 88/58; PULSE 55; RESP 18; O2SAT 100
[2024-04-06 08:21] VITALS: BP 138/86; PULSE 54; RESP 18; O2SAT 100
--- NOTE | 2024-04-06 08:45 | ANE.PACU2 ---
Inpatient post-anesthesia follow up: Airway intact: Yes Vital signs: Temperature 97.4 F Pulse Rate 54 Respiratory Rate 18 Blood Pressure 138/86 Pulse Oximetry 100 Oxygen Delivery Me thod Room Air Oxygen Flow Rate 3 Fraction of Inspir ed Oxygen Hydration adequate: Yes Nausea and vomiting: No Pain level: 1 Mental status: Baseline
== END 2024-04-06 08:44 | disposition home or self-care (01) ==
PROVIDERS: PCP Family Medicine Adult Medicine; Visit Provider Surgery
PROC: 0DJD8ZZ Inspection of Lower Intestinal Tract, Via Natural or Artificial Opening Endoscopic (ICD-10-PCS; CPT 45378; 2024-04-06 07:40)
PROC: 0DJD8ZZ Inspection of Lower Intestinal Tract, Via Natural or Artificial Opening Endoscopic (ICD-10-PCS; CPT 45330; 2024-04-06 07:40)
DX: Z12.11 Encounter for screening for malignant neoplasm of colon (principal); Q39.3 Congenital stenosis and stricture of esophagus; K29.50 Unspecified chronic gastritis without bleeding; B96.81 Helicobacter pylori [H. pylori] as the cause of diseases classified elsewhere; Z85.21 Personal history of malignant neoplasm of larynx; Z87.891 Personal history of nicotine dependence
CPT/HCPCS: 43239; 45330; 88305; 88342; J2704; J7030

== ENCOUNTER 2024-09-16 08:19 | Outpatient (CLI) | payer OTHER, SELFPAY ==
--- NOTE | 2024-09-16 | FL_ITS ---
NOTE: Report did not cross. Original Signature date and time was: 02/26/25 @ 10:13 [place] barium swallow modifd [id number] REASON FOR EXAM: Other dysphagia FLUOROSCOPY TIME: 4min [id number] # OF SPOT FILMS: 1 TECHNIQUE: Examination was supervised by the speech therapy department. Patient was examined in the sitting upright lateral projection. The swallowing of multiple consistencies of barium was monitored fluoroscopically and video recorded. FINDINGS: Enlargement of the epiglottis. Supraglottic mass. No aspiration. No impedance of the passage of the barium tablet from the esophagus into the stomach. IMPRESSION: Findings as above. Detailed report of the swallowing will be rendered by the speech therapy department. [facility]
== END 2024-09-16 08:20 | disposition home or self-care (01) ==
PROVIDERS: Visit Provider Otolaryngology
DX: R13.19 Other dysphagia (principal); J05.10 Acute epiglottitis without obstruction; R93.89 Abnormal findings on diagnostic imaging of other specified body structures
CPT/HCPCS: 74230; 92611